=== PATIENT | male | born 1940 | race Caucasian/White ===

== ENCOUNTER 2019-06-03 12:16 | Inpatient (IN) ==
[2019-06-03 12:55] LABS: Basophils # (auto) 0.01 K/uL (0-0.2); Basophils % (auto) 0.2 %; Eosinophils # (auto) 0.03 K/uL (0-0.5); Eosinophils % (auto) 0.5 %; Hematocrit (blood only) 36.5 % (42-52); Hemoglobin 12.5 g/dL (14.0-18.0); Immature Granulocytes # (auto) 0.01 K/uL (0.00-0.02); Immature Granulocytes % (auto) 0.2 %; Lymphocytes # (auto) 0.39 K/uL (1.2-3.4); Lymphocytes % (auto) 6.8 %; Mean Corpuscular Hemoglobin 31.2 pg (25-34); Mean Corpuscular Hgb Conc 34.2 g/dL (32-36); Mean Platelet Volume 10.3 fL (7.4-10.4); Monocytes # (auto) 0.04 K/uL (0.11-0.59); Monocytes % (auto) 0.7 %; Neutrophils # (auto) 5.24 K/uL (1.4-6.5); Neutrophils % (auto) 91.6 %; Platelet Count 266 K/uL (130-400); RDW Coefficient of Variation 15.4 % (11.5-14.5); RDW Standard Deviation 51.9 fL (36.4-46.3); Red Blood Count 4.01 M/uL (4.7-6.1); White Blood Count 5.72 K/uL (4.8-10.8)
[2019-06-03] MEDS ORDERED: SODIUM CHLORIDE 0.9% 1000ML 1,000 ML IV ONE (12:56)
[2019-06-03 13:10] LABS: Alanine Aminotransferase 30 U/L (12-78); Albumin Level 3.5 gm/dl (3.4-5.0); Aspartate Aminotransferase 26 U/L (15-37); BUN Creatinine Ratio 29.8 (10-20); Blood Urea Nitrogen 35 mg/dl (7-18); Calcium 8.9 mg/dl (8.5-10.1); Carbon Dioxide 25 mmol/L (21-32); Chloride 106 mmol/L (98-107); Est GFR (Non-African American) 60.4; Glucose 118 mg/dl (70-99); Sodium 138 mmol/L (136-145)
[2019-06-03 13:21] LABS: Alkaline Phosphatase 106 U/L (45-117); Bilirubin,Total 0.6 mg/dl (0.2-1); Globulin 3.4 gm/dl (2.5-4.0); Thyroid Stimulating Hormone 0.535 uIu/ml (0.300-4.500); Total Protein 6.9 gm/dl (6.4-8.2)
[2019-06-03 14:45] LABS: Appearance Urine Clear (Clear); Bilirubin Urine Negative (Negative); Blood Urine Negative (Negative); Color Urine Yellow; Glucose Urine UA Negative (Negative); Ketones Urine Negative (Negative); Leukocyte Esterase Urine Negative (Negative); Nitrite Urine Negative (Negative); Protein Urine Negative (Negative); Urobilinogen Urine Negative (Negative); pH Urine 6.5 (4.5-7.5)
[2019-06-03] MEDS ORDERED: ZOLPIDEM TARTRATE 5 MG TAB PO PRN (16:19)
[2019-06-03] MEDS ORDERED: ACETAMINOPHEN 325 MG TAB PO PRN (16:19)
--- NOTE | 2019-06-03 16:34 | History & Physical Report ---
Date of Service June 03, 2019 Assessment & Plan (1) Syncope: Multiple episodes of syncope, progressed to syncope from sitting position Likely secondary to hypotension from adrenal insufficiency aggravated by dehydration. I believe patient has mild dehydration because he stopped drinking water after 6 PM every day to ameliorate the nocturia Monitor patient for arrhythmia Discussed CODE STATUS with family, patient is full code (2) Acute hypotension: Likely multifactorial Adrenal insufficiency plus dehydration Status post 1 L in ED No signs of infection Nontoxic-appearing UA is negative for infection, no leukocytosis, no fever Ordered physical therapy/Occupational Therapy Ordered orthostatic pressure Ordered compression stockings (3) Acute dehydration: Status post 1 L of normal saline in ED Continue normal saline at 50 cc/h (4) Adrenal insufficiency: Plan is as above Continue prednisone 5 mg twice daily no need for stress dose Continue fludrocortisone 0.1 mg daily Can consider increasing the dose if needed (5) Nocturia: Likely secondary to hyperactive bladder Failed Trospium as outpatient (6) Peripheral neuropathy: Continue gabapentin (7) Dyslipidemia: Continue simvastatin (8) Essential hypertension: Currently leaving the blood pressure towards the high level, no blood pressure medication given except Proscar for the bladder (9) CAD (coronary artery disease): Continue aspirin History of Present Illness 79-year-old man with past medical history of cancer prostate on Bicalitamide, dyslipidemia, essential hypertension not on any meds due to the adrenal insufficiency, CAD on aspirin adrenal insufficiency used to be on prednisone 20 mg daily, was reduced to 5 mg twice daily after the diagnosis of the prostate cancer, he is also on fludrocortisone daily, presented to the hospital with multiple episodes of syncope about 7 times within the last few days, 2 of his episodes of syncope happened while he is sitting in a chair, home nurse checked his pressure and systolic pressure was in the range of 70s to 80s. Patient also has hyperactive bladder as an initial diagnosis, failed a trial of Trospium. Patient received 1 L of IV fluid in ED. Due to his hyperactive bladder he stopped drinking water after 6 PM and possibly slightly dehydrated Primary Care Provider: Jaime Parham Allergies Allergy/AdvReac Type Severity Reaction Status Date / Time tamsulosin [From Flomax] AdvReac Verified 06/03/19 13:08 Home Medications Home Medications Medication Instructions Recorded Confirmed Type aspirin [Aspir-81] 81 mg PO QAM 04/01/19 06/03/19 History cyanocobalamin (vitamin B-12) 1,000 mcg PO QAM 04/01/19 06/03/19 History [Vitamin B-12] finasteride 5 mg PO QAM 04/01/19 06/03/19 History fludrocortisone 0.1 mg PO QAM 04/01/19 06/03/19 History gabapentin 300 mg PO QAM 04/01/19 06/03/19 History garlic 500 mg PO QAM 04/01/19 06/03/19 History prednisone 20 mg PO QAM 04/01/19 06/03/19 History simvastatin 20 mg PO QPM 04/01/19 06/03/19 History bicalutamide 50 mg tablet 50 mg PO BID #60 tab 04/02/19 06/03/19 Rx ciprofloxacin 500 mg tablet 500 mg PO BID #6 tab 04/02/19 06/03/19 Rx Past Med/Surg History Medical History Benign 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 (Acute) Urinary frequency (Acute) Nocturia (Acute) Osteoarthritis (Acute) Peripheral neuropathy (Acute) Prostate nodule (Acute) Suicide attempt (Acute) Urge incontinence of urine (Acute) Urinary urgency (Acute) CAD (coronary artery disease) DJD of left shoulder Dyslipidemia History of atrial fibrillation Left knee DJD Surgical History History of PTCA History of herniorrhaphy History of intravascular stent placement History of radiofrequency ablation procedure for cardiac arrhythmia History of total knee arthroplasty Status post total shoulder arthroplasty Status post trigger finger release Family History Other Family history non-contributory Social History Preferred Language: Citizen Of The [place] Communication Ability: Effective Windows Security Analyst Required: No Beliefs That Will Affect Care: None Current Living Situation: Spouse Other Information That Helps Us Care for You: No Feels Safe at Home: Yes Safety Concerns: Feels Safe At This Time Smoking Status: Never smoker Hx Alcohol Use: No Hx Substance Use: No Review of Systems Review of Systems: Review of system aside from syncope and falling rest of review of systems negative Constitutional: No fever / no chills / no sweats / no weakness / no fatigue Eyes: no blurring of vision / no eye pain / no discharge / no redness ENT: no hearing loss / no epistaxis /no swallowing problems Respiratory: no cough / no wheezing / no SOB / no hemoptysis Cardiovascular: no Chest pain / no lower extremity edema / no palpitation Abdomen: no pain / no nausea / no vomiting / no constipation Musculoskeletal: no joint pain / no muscle pain / no joint swelling Genitourinary: no dysuria / no incontinence / no urinary retention Neurologic: no focal weakness / no numbness/tingling / no ataxia Psychiatric: no depression symptoms / no anxiety / no insomnia Endocrine: no excessive thirst / no excessive urination Hematologic: no abnormal bleeding / no bruising / no LN swelling Skin: No rash / no pallor Physical Exam Physical Exam: Physical examination General patient appears to be comfortable, not in acute distress HEENT: Atraumatic , normocephalic /no jaundice /no pallor /anicteric /no dry mucous membrane /normal external ear inspection Neck: Supple /no swelling /central trach Heart: S1/S2 normal/regular rate and rhythm/no gallop /no rub /no murmur Lungs: Clear to auscultation bilaterally/normal chest with expansion/no rhonchi/no rales/no wheezing/no use of accessory muscles of respiration Abdomen: Soft/nontender/no guarding/no rebound/no organomegaly/no pulsatile mass Musculoskeletal: No swelling/no edema/no tenderness/normal range of motion Neuro exam: Awake alert oriented 3/cranial nerves II through XII appear to be intact/sensation intact/moves all extremities/no abnormal movements Psychiatric evaluation: No depressed mood/normal affect Skin: No rash on exposed skin area/no erythema Extremity: Normal pulse/no pitting edema/no clubbing or cyanosis Endocrine/lymphatic: No obvious lymphadenopathy /no lymphedema Results & Data Vital Signs (Past 12 Hours) Vital Signs Temp Pulse Pulse Resp BP BP Pulse Ox 06/03/19 14:31 94 H 16 189/121 H 06/03/19 13:32 90 16 172/98 H 06/03/19 12:20 36.7 C 96 H 18 81/57 L 97 Code Status & VTE Plan VTE Prophylaxis Plan VTE Prophylaxis will be ordered: Yes PG Care Time/CCT Total # of Minutes Spent Total Time Spent with Patient: 35 minutes total time spent is greater than 50% in coordination of care (as documented) at patient's floor/unit and/or counseling patient/family discussion of care with nursing staff (1) Syncope Syncope type: unspecified Qualified Code(s): R55 - Syncope and collapse
--- NOTE | 2019-06-03 16:38 | Emergency Department Note ---
Entered by Harry Carrillo acting as a scribe for History of Present Illness General Chief complaint: Syncope (Near Syncope) Stated complaint: PASSING OUT ALL WEEKEND Time Seen by Provider: 06/03/19 12:49 Source: patient, family (son) and friends History of Present Illness Onset (ago): day(s) 2 Location: head Pain Consistency: + other (multiple episodes) Maximum Pain Intensity: 3 Quality: + other (syncope) Associated symptoms: + other (+low blood pressure; +frequent urges to urinate; - dizziness); no chest pain, no cough, no fever/chills and no shortness of breath The patient is a 79 year old male, with past medical history of prostate cancer and CAD, who presents to the Emergency Room with complaints of multiple episodes of syncope over the last two days. A friend of the patient notes the patient had 7 episodes of syncope yesterday. The patient states that the syncope episodes can happen while he is standing up or sitting down, but the patient states the syncope episodes dont necessarily happen specifically upon standing up. The patient notes he had two syncope episodes today, and he states each episode occurred after getting the urge to urinate and right after getting up to go urinate. The patient states that he blacks out briefly during each syncope episode, which causes him to wilt to the floor. The patient states it only takes him a few minutes to feel better after each syncope episode. The patient notes he has hurt his hip once and slightly hit his head once during these syncope episodes. The patient also reports he has been dealing with low blood pressure for awhile. The patient denies being on medication to lower his blood pressure. The patient states he has also been frequently experiencing urges to urinate, but he states he is not urinating as much as he should. The patient denies chest pain, shortness of breath, dizziness, sweating, fever, cough, congestion, and the patient denies being on any blood thinners other than aspirin. The patient also reports he had chemo treatment for prostate cancer 5 days ago. The patient notes he has chemo treatments every 21 days. The son of the patient reports the patient has extremely bad neuropathy in his lower extremities. The son also reports the patient recently had a bone scan completed, but the son states they are still waiting on results. The patient states his PCP is Dr. Parham from [place], his oncologist is Dr. Tobin, and his urologist is Dr. Bryce Garcia. Home Medications Home Medications Medication Instructions Recorded Confirmed Type aspirin [Aspir-81] 81 mg PO QAM 04/01/19 06/03/19 History cyanocobalamin (vitamin B-12) 1,000 mcg PO QAM 04/01/19 06/03/19 History [Vitamin B-12] finasteride 5 mg PO QAM 04/01/19 06/03/19 History fludrocortisone 0.1 mg PO QAM 04/01/19 06/03/19 History gabapentin 300 mg PO QAM 04/01/19 06/03/19 History garlic 500 mg PO QAM 04/01/19 06/03/19 History prednisone 20 mg PO QAM 04/01/19 06/03/19 History simvastatin 20 mg PO QPM 04/01/19 06/03/19 History bicalutamide 50 mg tablet 50 mg PO BID #60 tab 04/02/19 06/03/19 Rx ciprofloxacin HCl 500 mg tablet 500 mg PO BID #6 tab 04/02/19 06/03/19 Rx Allergies Allergy/AdvReac Type Severity Reaction Status Date / Time tamsulosin [From Flomax] AdvReac Verified 06/03/19 13:08 Past Med/Surg History Medical History Benign 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 (Acute) CAD (coronary artery disease) DJD of left shoulder Dyslipidemia History of atrial fibrillation Left knee DJD Nocturia (Acute) Osteoarthritis (Acute) Peripheral neuropathy (Acute) Prostate nodule (Acute) Suicide attempt (Acute) Urge incontinence of urine (Acute) Urinary frequency (Acute) Urinary urgency (Acute) Surgical History History of herniorrhaphy History of intravascular stent placement History of PTCA History of radiofrequency ablation procedure for cardiac arrhythmia History of total knee arthroplasty Status post total shoulder arthroplasty Status post trigger finger release Family History Other Family history non-contributory Social History Preferred Language: Algerian Communication Ability: Effective 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 and A total of 10 systems reviewed and were otherwise negative Physical Exam Vital Signs Vital Signs - 24 hr 06/03/19 12:20 06/03/19 12:31 06/03/19 13:32 Temperature 36.7 C Temperature Source Oral Sepsis Recent Fever Within 48 Hours No Sepsis New/Unexplained Change in Mental Status No Sepsis Action Taken by Nursing No Action Required Pulse Rate 96 H Pulse Rate [Apical] 90 Pulse Rate from SpO2 Sensor Respiratory Rate 18 16 Respiratory Effort / Characteristics Non-Labored Respiratory Depth Normal Blood Pressure 81/57 L Blood Pressure [Left Arm] 172/98 H Blood Pressure Mean 65 Blood Pressure Mean [Left Arm] 122 Blood Pressure Position Sitting Pulse Oximetry 97 Oxygen Delivery Method Room Air Room Air 06/03/19 14:31 06/03/19 16:00 Temperature Temperature Source Sepsis Recent Fever Within 48 Hours Sepsis New/Unexplained Change in Mental Status Sepsis Action Taken by Nursing Pulse Rate 93 H Pulse Rate [Apical] 94 H Pulse Rate from SpO2 Sensor 93 H Respiratory Rate 16 20 Respiratory Effort / Characteristics Respiratory Depth Blood Pressure 174/110 H Blood Pressure [Left Arm] 189/121 H Blood Pressure Mean 131 Blood Pressure Mean [Left Arm] 143 Blood Pressure Position Pulse Oximetry 98 Oxygen Delivery Method GENERAL: Patient is in no acute distress. HEENT: No acute trauma, normocephalic atraumatic, mucous membranes moist, no nasal congestion, no scleral icterus. NECK: No stridor, no adenopathy, no meningismus, trachea is midline. LUNGS: Clear to auscultation bilaterally, no wheeze, no rhonchi, breath sounds equal. HEART: Without murmurs gallops or rubs, regular rate and rhythm. ABDOMEN: Soft, nontender, bowel sounds positive, no hernias, no peritonitis. EXTREMITIES: No cyanosis or edema, full range of motion of all the joints without pain or difficulty, no signs for acute trauma. NEUROLOGIC: Oriented x 3, no acute motor or sensory deficits, no focal weakness. SKIN: No rash, no jaundice, no diaphoresis. Course 1251: Past medical records reviewed. The patient was evaluated in room B11B. A complete history and physical exam was performed. 1400: I [facility] the [facility]. Dr. Ceballos will evaluate the patient for further management. 1405: I updated the patient on his case. Consultations Consultation #1: I reviewed the patient's [facility]. Dr. Ceballos will evaluate the patient for further management. Time: 14:00 Administered Medications Aspirin (Ecotrin Ectab) 81 mg PO QAM [facility] Stop: 07/04/19 08:59 Last Admin: 06/08/19 08:34 Dose: 81 mg Documented by: [id number] Admin: 06/07/19 07:59 Dose: 81 mg Documented by: [id number] Admin: 06/06/19 07:53 Dose: 81 mg Documented by: [id number] Admin: 06/05/19 08:15 Dose: 81 mg Documented by: [id number] Admin: 06/04/19 08:13 Dose: 81 mg Documented by: [id number] Benzonatate (Tessalon Perle) 100 mg PO TID PRN PRN Reason: Cough Stop: 07/05/19 14:00 Last Admin: 06/08/19 08:32 Dose: 100 mg Documented by: [id number] Admin: 06/07/19 21:03 Dose: 100 mg Documented by: [id number] Admin: 06/07/19 10:56 Dose: 100 mg Documented by: [id number] Admin: 06/06/19 20:51 Dose: 100 mg Documented by: [id number] Admin: 06/06/19 12:50 Dose: 100 mg Documented by: [id number] Admin: 06/06/19 05:13 Dose: 100 mg Documented by: [id number] Admin: 06/05/19 16:26 Dose: 100 mg Documented by: [id number] Bicalutamide (Casodex) 50 mg PO BID [facility] Stop: 07/03/19 20:59 Last Admin: 06/08/19 08:36 Dose: 50 mg Documented by: [id number] Cosigned by: [id number] Admin: 06/07/19 20:42 Dose: 50 mg Documented by: [id number] Cosigned by: [id number] Admin: 06/07/19 08:00 Dose: 50 mg Documented by: [id number] Cosigned by: [id number] Admin: 06/06/19 20:52 Dose: 50 mg Documented by: [id number] Cosigned by: [id number] Admin: 06/06/19 07:53 Dose: 50 mg Documented by: [id number] Cosigned by: [id number] Admin: 06/05/19 21:02 Dose: 50 mg Documented by: [id number] Cosigned by: [id number] Admin: 06/05/19 08:16 Dose: 50 mg Documented by: [id number] Cosigned by: [id number] Admin: 06/04/19 20:35 Dose: 50 mg Documented by: [id number] Cosigned by: [id number] Admin: 06/04/19 09:13 Dose: 50 mg Documented by: [id number] Cosigned by: [id number] Admin: 06/03/19 20:48 Dose: 50 mg Documented by: [id number] Cosigned by: [id number] Cyanocobalamin (Vitamin B-12) 1,000 mcg PO QAM [facility] Stop: 07/04/19 08:59 Last Admin: 06/08/19 08:33 Dose: 1,000 mcg Documented by: [id number] Admin: 06/07/19 08:00 Dose: 1,000 mcg Documented by: [id number] Admin: 06/06/19 07:55 Dose: 1,000 mcg Documented by: [id number] Admin: 06/05/19 08:14 Dose: 1,000 mcg Documented by: [id number] Admin: 06/04/19 08:14 Dose: 1,000 mcg Documented by: [id number] Finasteride (Proscar) 5 mg PO QAM [facility] Stop: 07/04/19 08:59 Last Admin: 06/08/19 08:33 Dose: 5 mg Documented by: [id number] Admin: 06/07/19 07:59 Dose: 5 mg Documented by: [id number] Admin: 06/06/19 07:55 Dose: 5 mg Documented by: [id number] Admin: 06/05/19 08:15 Dose: 5 mg Documented by: [id number] Admin: 06/04/19 08:13 Dose: 5 mg Documented by: [id number] Fludrocortisone Acetate (Florinef) 0.2 mg PO QAM [facility] Stop: 07/06/19 08:59 Last Admin: 06/08/19 08:34 Dose: 0.2 mg Documented by: [id number] Admin: 06/07/19 07:59 Dose: 0.2 mg Documented by: [id number] Admin: 06/06/19 07:53 Dose: 0.2 mg Documented by: [id number] Gabapentin (Neurontin) 300 mg PO QAM [facility] Stop: 07/04/19 08:59 Last Admin: 06/08/19 08:33 Dose: 300 mg Documented by: [id number] Admin: 06/07/19 08:00 Dose: 300 mg Documented by: [id number] Admin: 06/06/19 07:54 Dose: 300 mg Documented by: [id number] Admin: 06/05/19 08:14 Dose: 300 mg Documented by: [id number] Admin: 06/04/19 08:13 Dose: 300 mg Documented by: [id number] Guaifenesin (Mucinex) 600 mg PO Q12 [facility] Stop: 07/05/19 20:59 Last Admin: 06/08/19 08:33 Dose: 600 mg Documented by: [id number] Admin: 06/07/19 20:43 Dose: 600 mg Documented by: [id number] Admin: 06/07/19 08:00 Dose: 600 mg Documented by: [id number] Admin: 06/06/19 20:52 Dose: 600 mg Documented by: [id number] Admin: 06/06/19 07:54 Dose: 600 mg Documented by: [id number] Admin: 06/05/19 21:01 Dose: 600 mg Documented by: [id number] Heparin Sodium (Porcine) (Heparin Sodium (Porcine)) 5,000 units SQ Q12 [facility] Stop: 07/03/19 20:59 Last Admin: 06/08/19 08:32 Dose: 5,000 units Documented by: [id number] Cosigned by: [id number] Admin: 06/07/19 20:41 Dose: 5,000 units Documented by: [id number] Cosigned by: [id number] Admin: 06/07/19 08:01 Dose: Not Given Documented by: [id number] Admin: 06/06/19 20:53 Dose: 5,000 units Documented by: [id number] Cosigned by: [id number] Admin: 06/06/19 07:54 Dose: 5,000 units Documented by: [id number] Cosigned by: [id number] Admin: 06/05/19 21:02 Dose: 5,000 units Documented by: [id number] Cosigned by: [id number] Admin: 06/05/19 08:15 Dose: 5,000 units Documented by: [id number] Cosigned by: [id number] Admin: 06/04/19 20:33 Dose: 5,000 units Documented by: [id number] Cosigned by: [id number] Admin: 06/04/19 08:15 Dose: 5,000 units Documented by: [id number] Cosigned by: [id number] Admin: 06/03/19 20:45 Dose: 5,000 units Documented by: [id number] Cosigned by: [id number] Midodrine (Proamatine) 5 mg PO TID@0800,1200,1700 [facility] Stop: 07/03/19 18:29 Last Admin: 06/08/19 08:35 Dose: 5 mg Documented by: [id number] Admin: 06/07/19 17:01 Dose: 5 mg Documented by: [id number] Admin: 06/07/19 12:00 Dose: 5 mg Documented by: [id number] Admin: 06/07/19 07:59 Dose: 5 mg Documented by: [id number] Admin: 06/06/19 17:34 Dose: 5 mg Documented by: [id number] Admin: 06/06/19 12:50 Dose: 5 mg Documented by: [id number] Admin: 06/06/19 07:52 Dose: 5 mg Documented by: [id number] Admin: 06/05/19 16:26 Dose: 5 mg Documented by: [id number] Admin: 06/05/19 12:03 Dose: 5 mg Documented by: [id number] Admin: 06/05/19 08:15 Dose: 5 mg Documented by: [id number] Admin: 06/04/19 17:01 Dose: 5 mg Documented by: [id number] Admin: 06/04/19 12:24 Dose: 5 mg Documented by: [id number] Admin: 06/04/19 08:13 Dose: 5 mg Documented by: [id number] Admin: 06/03/19 18:18 Dose: 5 mg Documented by: [id number] Polyethylene Glycol (Miralax Powder Packet) 17 gm PO DAILY [facility] Stop: 07/05/19 12:29 Last Admin: 06/08/19 08:33 Dose: 17 gm Documented by: [id number] Admin: 06/07/19 08:01 Dose: 17 gm Documented by: [id number] Admin: 06/06/19 07:54 Dose: 17 gm Documented by: [id number] Admin: 06/05/19 13:49 Dose: 17 gm Documented by: [id number] Prednisone (Prednisone) 5 mg PO BID [facility] Stop: 07/03/19 20:59 Last Admin: 06/08/19 08:33 Dose: 5 mg Documented by: [id number] Admin: 06/07/19 20:41 Dose: 5 mg Documented by: [id number] Admin: 06/07/19 08:00 Dose: 5 mg Documented by: [id number] Admin: 06/06/19 20:52 Dose: 5 mg Documented by: [id number] Admin: 06/06/19 07:54 Dose: 5 mg Documented by: [id number] Admin: 06/05/19 21:02 Dose: 5 mg Documented by: [id number] Admin: 06/05/19 08:14 Dose: 5 mg Documented by: [id number] Admin: 06/04/19 20:32 Dose: 5 mg Documented by: [id number] Admin: 06/04/19 08:12 Dose: 5 mg Documented by: [id number] Admin: 06/03/19 20:44 Dose: 5 mg Documented by: [id number] Simvastatin (Zocor) 20 mg PO QPM [facility] Stop: 07/03/19 20:59 Last Admin: 06/07/19 20:40 Dose: 20 mg Documented by: [id number] Admin: 06/06/19 20:52 Dose: 20 mg Documented by: [id number] Admin: 06/05/19 21:02 Dose: 20 mg Documented by: [id number] Admin: 06/04/19 20:30 Dose: 20 mg Documented by: [id number] Admin: 06/03/19 20:44 Dose: 20 mg Documented by: [id number] Discontinued Medications Fludrocortisone Acetate (Florinef) 0.1 mg PO QAM [facility] Stop: 07/03/19 17:59 Last Admin: 06/05/19 08:15 Dose: 0.1 mg Documented by: [id number] Admin: 06/04/19 08:13 Dose: 0.1 mg Documented by: [id number] Admin: 06/03/19 18:18 Dose: 0.1 mg Documented by: [id number] Fludrocortisone Acetate (Florinef) 0.1 mg PO NOW STA Stop: 06/05/19 09:54 Last Admin: 06/05/19 10:22 Dose: 0.1 mg Documented by: [id number] Sodium Chloride (Nss 1000ml) 1,000 mls @ 999 mls/hr IV .Q1H1M ONE Stop: 06/03/19 13:56 Last Infusion: 06/03/19 14:28 Dose: 0 mls/hr Documented by: [id number] Admin: 06/03/19 13:32 Dose: 999 mls/hr Documented by: [id number] Sodium Chloride (Nss 1000ml) 1,000 mls @ 50 mls/hr IV .Q20H [facility] Stop: 07/03/19 17:59 Last Infusion: 06/05/19 10:22 Dose: 0 mls/hr Documented by: [id number] Admin: 06/05/19 09:14 Dose: 50 mls/hr Documented by: [id number] Infusion: 06/05/19 08:25 Dose: 50 mls/hr Documented by: [id number] Admin: 06/04/19 12:25 Dose: 50 mls/hr Documented by: [id number] Infusion: 06/04/19 12:25 Dose: 50 mls/hr Documented by: [id number] Admin: 06/03/19 17:56 Dose: 50 mls/hr Documented by: [id number] Lidocaine HCl (Xylocaine 2% Jelly) Confirm Administered Dose 5 ml .ROUTE .STK- MED ONE Stop: 06/04/19 09:47 Last Admin: 06/04/19 10:08 Dose: 5 ml Documented by: [id number] Tolterodine Tartrate (Detrol) 2 mg PO BID [facility] Stop: 07/03/19 20:59 Last Admin: 06/04/19 08:13 Dose: 2 mg Documented by: [id number] Admin: 06/03/19 20:43 Dose: 2 mg Documented by: [id number] Impression & Plan Syncope, Acute hypotension, Acute dehydration Discharge Plan Visit Data *Final* Discharge Date/Time: 06/03/19 17:12 Chief Complaint: Syncope (Near Syncope) Stated Complaint: PASSING OUT ALL WEEKEND ED Provider: Conner Olivares Discharge Problem: Syncope, Acute hypotension, Acute dehydration Patient Disposition: Admitted As Inpatient Discharge Instructions Interventions: ED Discharge Assessment Last Done: 06/03/19 17:12 Medical Decision Making Differential Diagnosis Differential diagnoses include dehydration, anemia, renal failure, electrolyte imbalance, UTI, medication reaction, dysrhythmia, myocardial infarction, amongst others were considered. Medical Records Attestation: I reviewed the patient's medical records. Home Medications Current Medication List: was personally reviewed by me Laboratory Data Attestation: I reviewed the patient's lab results. Result diagrams: 06/08/19 08:11 06/07/19 07:56 Lab Results 06/03/19 06/03/19 06/03/19 Range/Units 12:42 12:42 12:42 WBC 5.72 (4.8-10.8) K/uL RBC 4.01 L (4.7-6.1) M/uL Hgb 12.5 L (14.0-18.0) g/dL Hct 36.5 L (42-52) % MCV 91.0 (80-100) fL MCH 31.2 (25-34) pg MCHC 34.2 (32-36) g/dL RDW Std Deviation 51.9 H (36.4-46.3) fL RDW Coeff of Emilee 15.4 H (11.5-14.5) % Plt Count 266 (130-400) K/uL MPV 10.3 (7.4-10.4) fL Immature Gran % (Auto) 0.2 % Neut % (Auto) 91.6 % Lymph % (Auto) 6.8 % [place] % (Auto) 0.7 % Eos % (Auto) 0.5 % Baso % (Auto) 0.2 % Immature Gran # (Auto) 0.01 (0.00-0.02) K/uL Neut # (Auto) 5.24 (1.4-6.5) K/uL Lymph # (Auto) 0.39 L (1.2-3.4) K/uL [place] # (Auto) 0.04 L (0.11-0.59) K/uL Eos # (Auto) 0.03 (0-0.5) K/uL Baso # (Auto) 0.01 (0-0.2) K/uL Sodium 138 (136-145) mmol/L Potassium 4.0 (3.5-5.1) mmol/L Chloride 106 (98-107) mmol/L Carbon Dioxide 25 (21-32) mmol/L Anion Gap 7.0 (3-11) BUN 35 H (7-18) mg/dl Creatinine 1.16 (0.6-1.4) mg/dl Est Cr Clr Drug Dosing Not Reportable Est GFR ( Amer) 70.0 Est GFR (Non-Af Amer) 60.4 BUN/Creatinine Ratio 29.8 H (10-20) Glucose 118 H (70-99) mg/dl Calcium 8.9 (8.5-10.1) mg/dl Magnesium 2.0 (1.8-2.4) mg/dl Total Bilirubin 0.6 (0.2-1) mg/dl AST 26 (15-37) U/L ALT 30 (12-78) U/L Alkaline Phosphatase 106 (45-117) U/L Troponin I < 0.015 (0-0.045) ng/ml Total Protein 6.9 (6.4-8.2) gm/dl Albumin 3.5 (3.4-5.0) gm/dl Globulin 3.4 (2.5-4.0) gm/dl Albumin/Globulin Ratio 1.0 (0.9-2) TSH 0.535 (0.300-4.500) uIu/ml Urine Color Urine Appearance (Clear) Urine pH (4.5-7.5) Ur Specific [place] (1.000-1.030) Urine Protein (Negative) Urine Glucose (UA) (Negative) Urine Ketones (Negative) Urine Blood (Negative) Urine Nitrite (Negative) Urine Bilirubin (Negative) Urine Urobilinogen (Negative) Ur Leukocyte Esterase (Negative) 06/03/19 Range/Units 14:24 WBC (4.8-10.8) K/uL RBC (4.7-6.1) M/uL Hgb (14.0-18.0) g/dL Hct (42-52) % MCV (80-100) fL MCH (25-34) pg MCHC (32-36) g/dL RDW Std Deviation (36.4-46.3) fL RDW Coeff of Emilee (11.5-14.5) % Plt Count (130-400) K/uL MPV (7.4-10.4) fL Immature Gran % (Auto) % Neut % (Auto) % Lymph % (Auto) % [place] % (Auto) % Eos % (Auto) % Baso % (Auto) % Immature Gran # (Auto) (0.00-0.02) K/uL Neut # (Auto) (1.4-6.5) K/uL Lymph # (Auto) (1.2-3.4) K/uL [place] # (Auto) (0.11-0.59) K/uL Eos # (Auto) (0-0.5) K/uL Baso # (Auto) (0-0.2) K/uL Sodium (136-145) mmol/L Potassium (3.5-5.1) mmol/L Chloride (98-107) mmol/L Carbon Dioxide (21-32) mmol/L Anion Gap (3-11) BUN (7-18) mg/dl Creatinine (0.6-1.4) mg/dl Est Cr Clr Drug Dosing Est GFR ( Amer) Est GFR (Non-Af Amer) BUN/Creatinine Ratio (10-20) Glucose (70-99) mg/dl Calcium (8.5-10.1) mg/dl Magnesium (1.8-2.4) mg/dl Total Bilirubin (0.2-1) mg/dl AST (15-37) U/L ALT (12-78) U/L Alkaline Phosphatase (45-117) U/L Troponin I (0-0.045) ng/ml Total Protein (6.4-8.2) gm/dl Albumin (3.4-5.0) gm/dl Globulin (2.5-4.0) gm/dl Albumin/Globulin Ratio (0.9-2) TSH (0.300-4.500) uIu/ml Urine Color Yellow Urine Appearance Clear (Clear) Urine pH 6.5 (4.5-7.5) Ur Specific [place] 1.020 (1.000-1.030) Urine Protein Negative (Negative) Urine Glucose (UA) Negative (Negative) Urine Ketones Negative (Negative) Urine Blood Negative (Negative) Urine Nitrite Negative (Negative) Urine Bilirubin Negative (Negative) Urine Urobilinogen Negative (Negative) Ur Leukocyte Esterase Negative (Negative) ECG Data Attestation: I personally reviewed and interpreted this ECG as follows: Indication: + syncope Rate (beats per minute): 95 Rhythm: + sinus rhythm ECG ST segments: no ST elevation ECG Findings: + PVCs and + Other (QTC 464) Blood Pressure Blood Pressure Findings: Low blood pressure Blood Pressure Disposition: further management by hospitalist RICHARD Narrative There is no leukocytosis. The patient is mildly anemic however, this is baseline for him. No issues with his platelet count. No significant electrolyte abnormality or kidney failure. No evidence for liver enzyme elevation. The patient appeared to be in a euthyroid state. Urinalysis does not show infection or hematuria. EKG shows a sinus rhythm, no acute ischemia. Cardiac enzyme testing x1 is not consistent with acute cardiac injury. Blood pressure was low in the 80s systolic. The patient presents with syncope. He has had at least 7 syncopal spells in the last 24 hours. He is on some medications which may be dropping his blood pressure. He does seem slightly dehydrated clinically. He does have prostate cancer and is on chemotherapy for this cancer. Patient was given IV saline, 1 L. He did well with his fluid bolus and his blood pressure improved. The patient has had at least 7 syncopal spells in the last 24 hours. He presents hypotensive although this has rebounded since receiving IV fluids. I do think a hospital stay for monitoring and further care is indicated. I spoke to the patient and case fitter. The on-call hospitalist was consulted. In short, I suspect the hypotension is multifactorial, I suspect this has caused the syncope. Discharge Problem: Syncope Qualifiers: Syncope type: unspecified Qualified Code(s): R55 - Syncope and collapse The scribe's documentation has been prepared under my direction and personally reviewed by me in its entirety. I confirm that the note above accurately reflects all work, treatment, procedures, and medical decision making performed by me.
[2019-06-03] MEDS: SODIUM CHLORIDE 0.9% 1000ML 1,000 ML IV SCH (17:56)
[2019-06-03] MEDS: MIDODRINE HCL 2.5 MG TAB PO SCH (18:18)
[2019-06-03] MEDS: FLUDROCORTISONE ACETATE 0.1 MG TAB PO SCH (18:18)
[2019-06-03] MEDS: TOLTERODINE TARTRATE 2 MG TAB PO SCH (20:43)
[2019-06-03] MEDS: SIMVASTATIN 20 MG TAB PO SCH (20:44)
[2019-06-03] MEDS: predniSONE 5 MG TAB PO SCH (20:44)
[2019-06-03] MEDS: HEPARIN SOD 5,000 UNIT/0.5 ML VIAL SQ SCH (20:45)
[2019-06-03] MEDS: BICALUTAMIDE 50 MG TAB PO SCH (20:48)
[2019-06-04] MEDS: predniSONE 5 MG TAB PO SCH ×2 (08:12→20:32)
[2019-06-04] MEDS: MIDODRINE HCL 2.5 MG TAB PO SCH ×3 (08:13→17:01)
[2019-06-04] MEDS: GABAPENTIN 300 MG CAP PO SCH (08:13)
[2019-06-04] MEDS: FINASTERIDE 5 MG TAB PO SCH (08:13)
[2019-06-04] MEDS: ASPIRIN 81 MG ECTAB PO SCH (08:13)
[2019-06-04] MEDS: FLUDROCORTISONE ACETATE 0.1 MG TAB PO SCH (08:13)
[2019-06-04] MEDS: TOLTERODINE TARTRATE 2 MG TAB PO SCH (08:13)
[2019-06-04] MEDS: CYANOCOBALAMIN 500 MCG TABLET (VITAMIN B-12) PO SCH (08:14)
[2019-06-04] MEDS: HEPARIN SOD 5,000 UNIT/0.5 ML VIAL SQ SCH ×2 (08:15→20:33)
[2019-06-04] MEDS: BICALUTAMIDE 50 MG TAB PO SCH ×2 (09:13→20:35)
[2019-06-04] MEDS ORDERED: LIDOCAINE 2% JELLY 5 ML TUBE ONE (09:46)
[2019-06-04] MEDS: SODIUM CHLORIDE 0.9% 1000ML 1,000 ML IV SCH (12:25)
--- NOTE | 2019-06-04 12:39 | Urology Consultation ---
Date of Consultation June 04, 2019 Assessment & Plan (1) Benign 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: (2) Cancer of prostate, recur risk not determined whether low, med or high: 79yo M with newly diagnosed aggressive prostate cancer, currently on chemoRx and ADT and adrenal insufficiency, admitted with syncopal episodes and UR Continue hanna catheter for 10-14 days to allow max drainage and bladder rest. Continue finasteride. Will hold tolterodine as this could contribute to bladder flaccidity. Send UC&S to r/o low grade infection. Low suspicion given negative UA. Will discuss case with Dr. Garcia to make him aware of events. We will continue to follow while inpatient. History of Present Illness Reason for Consultation: UR Requesting Physician: Dr. Cornejo Attending Physician: Vaughn Cornejo, DO History of Present Illness 79yo M with [place] 5+5 CaP, hx of adrenal insufficiency, admitted to [facility] through ER by our office recommendation after repeated syncopal episodes, hypotension, urinary frequency. Pt currently being treated for adrenal insufficiency, hypotension. Established with Dr. Garcia for care of advanced prostate cancer diagnosed in March 2019, on combination ADT and chemoRx with Dr. Lynch. Pt has received 3 treatments, 4th round planned for end may. Pt states he is tolerating well, except neuropathy. Bud 5+5, No clear mets, + pelvic lymphadenopathy. Current PSA after starting bicalutamide is 6.8, (Mar 2019), down from 39 (Mar 2019) earlier in the month. Next Lupron due late Jun 2019. We were consulted to assist in catheter management. Pt appears comfortable today. States hanna is bothersome but denies bladder spasms or acute pain associated. Mostly annoyed that it is present. Pt was straight cath'd for 800cc upon admission, with subsequent hanna placement this AM. Hanna draining clear yellow. UA negative, not suspicous for UTI. Pt currently on tolterodine and finasteride. Allergies Allergy/AdvReac Type Severity Reaction Status Date / Time tamsulosin [From Flomax] AdvReac Verified 06/03/19 13:08 Home Medications Home Medications Medication Instructions Recorded Confirmed Type aspirin [Aspir-81] 81 mg PO QAM 04/01/19 06/03/19 History cyanocobalamin (vitamin B-12) 1,000 mcg PO QAM 04/01/19 06/03/19 History [Vitamin B-12] finasteride 5 mg PO QAM 04/01/19 06/03/19 History fludrocortisone 0.1 mg PO QAM 04/01/19 06/03/19 History gabapentin 300 mg PO QAM 04/01/19 06/03/19 History garlic 500 mg PO QAM 04/01/19 06/03/19 History prednisone 20 mg PO QAM 04/01/19 06/03/19 History simvastatin 20 mg PO QPM 04/01/19 06/03/19 History bicalutamide 50 mg tablet 50 mg PO BID #60 tab 04/02/19 06/03/19 Rx ciprofloxacin HCl 500 mg tablet 500 mg PO BID #6 tab 04/02/19 06/03/19 Rx Patient History Medical History Benign 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 (Acute) CAD (coronary artery disease) DJD of left shoulder Dyslipidemia History of atrial fibrillation Left knee DJD Nocturia (Acute) Osteoarthritis (Acute) Peripheral neuropathy (Acute) Prostate nodule (Acute) Suicide attempt (Acute) Urge incontinence of urine (Acute) Urinary frequency (Acute) Urinary urgency (Acute) Surgical History History of herniorrhaphy History of intravascular stent placement History of PTCA History of radiofrequency ablation procedure for cardiac arrhythmia History of total knee arthroplasty Status post total shoulder arthroplasty Status post trigger finger release Family History Other Family history non-contributory Social History Preferred Language: Setswana Communication Ability: Effective [employer] Adviser Required: No Beliefs That Will Affect Care: None Current Living Situation: Spouse Feels Safe at Home: Yes Smoking Status: Never smoker Hx Alcohol Use: No Hx Substance Use: No Review of Systems Review of Systems: All systems reviewed & are unremarkable except as noted in HPI & below Physical Exam Constitutional: + ill appearing and + frail appearing; no acute distress Eyes: no nystagmus ENMT: Ears: no hearing impairment Neck: trachea midline Respiratory: no respiratory distress and no cough Cardiovascular: Vessels: no JVD Chest (Breasts): Chest: normal inspection of chest Gastrointestinal (Abdomen): Inspection/Auscultation: abdomen not distended and no abdominal edema Percussion/Palpation: abdomen soft; abdomen nontender Musculoskeletal: Head/Neck/Chest: normocephalic and head atraumatic Skin: no rashes, warm and dry Neurologic: awake; not confused and not obtunded Psychiatric: Orientation: alert and oriented x 3 Eye Contact: good eye contact Affect: no depressed affect Genitourinary: no CVA tenderness hanna draining clear yellow Lymphatic: no lymphadenopathy and no lymphedema Results & Data Vital Signs (Past 12 Hours) Vital Signs Temp Pulse Resp BP BP Pulse Ox 06/04/19 12:23 96/64 L 06/04/19 11:12 36.8 C 93 H 22 159/103 H 97 06/04/19 08:11 36.4 C L 20 98 06/04/19 04:50 36.8 C 96 H 19 156/98 H 96 PG Care Time/CCT Total # of Minutes Spent Total Time Spent with Patient: Total time spent is greater than 50% in coordination of care (as documented) at patient's floor/unit and/or counseling patient:
--- NOTE | 2019-06-04 16:51 | Hospitalist Progress Note ---
Date of Service June 04, 2019 Assessment & Plan (1) Syncope: Multiple episodes of syncope, progressed to syncope from sitting position Likely secondary to hypotension from adrenal insufficiency aggravated by dehydration. could also be a degree of micturation syncope given his constant urge to void and urinary retention no further episodes, continue to observe on monitor PT/OT ordered, check orthostatic vitals (2) Acute hypotension: Likely multifactorial Adrenal insufficiency plus dehydration Status post 1 L in ED stable today, most pressures elevated (3) Acute dehydration: Status post 1 L of normal saline in ED Continue normal saline at 50 cc/h likely stop fluids tomorrow (4) Adrenal insufficiency: Plan is as above Continue prednisone 5 mg twice daily no need for stress dose Continue fludrocortisone 0.1 mg daily (5) Benign 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: hanna placed on 06/04 due to urinary retention, post void residual > 390 urology consulted, appreciate recommendations will go home with hanna to allow bladder to rest continue finasteride hold tolterodine as it could be contributing to bladder flaccidity follows with Dr. Bryce Garcia in office (6) Cancer of prostate, recur risk not determined whether low, med or high: currently on Lupron and Bicalutamide no plans for radiation or surgery as disease is in the lymph nodes most recent PSA was trending down, showing appropriate response (7) Nocturia: Likely secondary to hyperactive bladder Failed Trospium as outpatient reports having to urinate every 10-15 minutes at night (8) Peripheral neuropathy: Continue gabapentin (9) Dyslipidemia: Continue simvastatin (10) Essential hypertension: Currently leaving the blood pressure towards the high level, no blood pressure medication given except Proscar for the bladder (11) CAD (coronary artery disease): Continue aspirin (12) Urinary frequency: Subjective patient c/o multiple episodes of urinary retention already required straight catheterization x 3 this AM with post void residual of 390cc, ordered hanna catheter reviewed outpatient records from Dr. Garcia, he has prostate CA, [place] 5 + 5 PET scan showed some inguinal adenopathy but no distant mets being treated with Lupron and androgen receptor binder will consult Urology no further syncopal episodes, feels a little better today Review of Systems Review of Systems: All systems reviewed & are unremarkable except as noted in HPI & below Constitutional: no fever Respiratory: no cough and no dyspnea Cardiovascular: no chest pain, no palpitations, no syncope and no edema Genitourinary: + difficulty urinating, + urinary frequency, + post-void dribbling and + nocturia (every 10-15 minutes at night); no dysuria, no urinary incontinence and no flank pain Physical Exam Constitutional: WD/WN, vitals as above Eyes: PERRL, conjunctivae normal, anicteric sclerae ENMT: external ear and nose normal, oropharynx normal Neck: trachea midline, no thyromegaly Respiratory: normal respiratory effort, lungs clear to auscultation Cardiovascular: RRR, no murmur, no edema Gastrointestinal (Abdomen): normal bowel sounds, soft, nontender, no hepatosplenomegaly Musculoskeletal: no cyanosis or clubbing, extremities motor strength 5/5 Skin: no rashes, warm and dry Neurologic: patellar DTR's 2+ bilat, sensation intact and PERRL, EOMI, accommodation nl, no face palsy, no dysarthria Psychiatric: A+Ox3, euthymic affect Lymphatic: no cervical or axillary lymphadenopathy Results & Data Vital Signs (Past 12 Hours) Vital Signs Temp Pulse Pulse Resp BP BP Pulse Ox 06/04/19 15:48 88 06/04/19 15:28 36.6 C 88 16 98 06/04/19 12:23 96/64 L 06/04/19 11:12 36.8 C 93 H 22 159/103 H 97 06/04/19 08:11 36.4 C L 20 98 Medications Administered Current Inpatient Medications Acetaminophen (Tylenol) 650 mg PO Q4H PRN PRN Reason: Pain or Fever Stop: 07/03/19 16:18 Aspirin (Ecotrin Ectab) 81 mg PO [facility] Stop: 07/04/19 08:59 Last Admin: 06/04/19 08:13 Dose: 81 mg Documented by: Bicalutamide (Casodex) 50 mg PO BID [facility] Stop: 07/03/19 20:59 Last Admin: 06/04/19 09:13 Dose: 50 mg Documented by: Cyanocobalamin (Vitamin B-12) [facility] [place] Stop: 07/04/19 08:59 Last Admin: 06/04/19 08:14 Dose: 1,000 mcg Documented by: Finasteride (Proscar) 5 mg PO [facility] Stop: 07/04/19 08:59 Last Admin: 06/04/19 08:13 Dose: 5 mg Documented by: Fludrocortisone Acetate (Florinef) 0.1 mg PO QAM [facility] Stop: 07/03/19 17:59 Last Admin: 06/04/19 08:13 Dose: 0.1 mg Documented by: Gabapentin (Neurontin) 300 mg PO QAM [facility] Stop: 07/04/19 08:59 Last Admin: 06/04/19 08:13 Dose: 300 mg Documented by: Heparin Sodium (Porcine) (Heparin Sodium (Porcine)) 5,000 units SQ Q12 [facility] Stop: 07/03/19 20:59 Last Admin: 06/04/19 08:15 Dose: 5,000 units Documented by: Sodium Chloride (Nss 1000ml) 1,000 mls @ 50 mls/hr IV .Q20H [facility] Stop: 07/03/19 17:59 Last Admin: 06/04/19 12:25 Dose: 50 mls/hr Documented by: Midodrine (Proamatine) 5 mg PO TID@0800,1200,1700 [facility] Stop: 07/03/19 18:29 Last Admin: 06/04/19 12:24 Dose: 5 mg Documented by: Prednisone (Prednisone) 5 mg PO BID [facility] Stop: 07/03/19 20:59 Last Admin: 06/04/19 08:12 Dose: 5 mg Documented by: Simvastatin (Zocor) 20 mg PO QPM [facility] Stop: 07/03/19 20:59 Last Admin: 06/03/19 20:44 Dose: 20 mg Documented by: Zolpidem Tartrate (Ambien) 5 mg PO HS PRN PRN Reason: Sleep Stop: 07/03/19 16:18 PG Care Time/CCT Total # of Minutes Spent Total Time Spent with Patient: Total time spent is greater than 50% in coordination of care (as documented) at patient's floor/unit and/or counseling patient: (1) Syncope Syncope type: unspecified Qualified Code(s): R55 - Syncope and collapse
[2019-06-04] MEDS: SIMVASTATIN 20 MG TAB PO SCH (20:30)
[2019-06-05 06:07] LABS: Hematocrit (blood only) 35.7 % (42-52); Hemoglobin 12.1 g/dL (14.0-18.0); Mean Corpuscular Hemoglobin 30.4 pg (25-34); Mean Corpuscular Hgb Conc 33.9 g/dL (32-36); Mean Corpuscular Volume 89.7 fL (80-100); Mean Platelet Volume 10.3 fL (7.4-10.4); Platelet Count 211 K/uL (130-400); RDW Standard Deviation 49.6 fL (36.4-46.3); Red Blood Count 3.98 M/uL (4.7-6.1); White Blood Count 2.11 K/uL (4.8-10.8)
[2019-06-05 06:31] LABS: Est GFR (African American) 97.4; Potassium 3.7 mmol/L (3.5-5.1)
[2019-06-05 06:32] LABS: Albumin Globulin Ratio 0.9 (0.9-2); Albumin Level 2.8 gm/dl (3.4-5.0); BUN Creatinine Ratio 23.7 (10-20); Bilirubin,Total 0.5 mg/dl (0.2-1); Calcium 8.1 mg/dl (8.5-10.1); Creatinine Clr Calc Pharmacy 80.6 ml/min; Globulin 3.3 gm/dl (2.5-4.0); Magnesium 1.8 mg/dl (1.8-2.4); Total Protein 6.1 gm/dl (6.4-8.2)
[2019-06-05] MEDS: GABAPENTIN 300 MG CAP PO SCH (08:14)
[2019-06-05] MEDS: predniSONE 5 MG TAB PO SCH ×2 (08:14→21:02)
[2019-06-05] MEDS: CYANOCOBALAMIN 500 MCG TABLET (VITAMIN B-12) PO SCH (08:14)
[2019-06-05] MEDS: FINASTERIDE 5 MG TAB PO SCH (08:15)
[2019-06-05] MEDS: FLUDROCORTISONE ACETATE 0.1 MG TAB PO SCH (08:15)
[2019-06-05] MEDS: HEPARIN SOD 5,000 UNIT/0.5 ML VIAL SQ SCH ×2 (08:15→21:02)
[2019-06-05] MEDS: ASPIRIN 81 MG ECTAB PO SCH (08:15)
[2019-06-05] MEDS: MIDODRINE HCL 2.5 MG TAB PO SCH ×3 (08:15→16:26)
[2019-06-05] MEDS: BICALUTAMIDE 50 MG TAB PO SCH ×2 (08:16→21:02)
[2019-06-05] MEDS: SODIUM CHLORIDE 0.9% 1000ML 1,000 ML IV SCH (09:14)
[2019-06-05] MEDS ORDERED: FLUDROCORTISONE ACETATE 0.1 MG TAB PO STA (09:53)
--- NOTE | 2019-06-05 09:56 | Hospitalist Progress Note ---
Date of Service June 05, 2019 Assessment & Plan (1) Syncope: Multiple episodes of syncope, progressed to syncope from sitting position Likely secondary to hypotension from adrenal insufficiency aggravated by dehydration. could also be a degree of micturation syncope given his constant urge to void and urinary retention no improvement today, will increas Florinef to 0.2 and watch for response reviewed medication list, some of them can cause syncope PT/OT ordered + orthostatic changes today on vitals can transfer to medical floor (2) Acute hypotension: Likely multifactorial Adrenal insufficiency plus dehydration orthostatic changes, his BP is fine when laying in bed received fluids in the ED, no further fluids needed as he is eating and drinking (3) Acute dehydration: Status post 1 L of normal saline in ED Continue normal saline at 50 cc/h stop fluids today (4) Adrenal insufficiency: Plan is as above Continue prednisone 5 mg twice daily no need for stress dose Continue fludrocortisone but increase to 0.2mg daily (5) Benign 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: hanna placed on 06/04 due to urinary retention, post void residual > 390 urology consulted, appreciate recommendations will go home with hanna to allow bladder to rest continue finasteride hold tolterodine as it could be contributing to bladder flaccidity follows with Dr. Bryce Garcia in office (6) Cancer of prostate, recur risk not determined whether low, med or high: currently on Lupron and Bicalutamide no plans for radiation or surgery as disease is in the lymph nodes most recent PSA was trending down, showing appropriate response discussed with patient's , no role for oncology to see patient while here (7) Nocturia: Likely secondary to hyperactive bladder Failed Trospium as outpatient reports having to urinate every 10-15 minutes at night (8) Peripheral neuropathy: Continue gabapentin (9) Dyslipidemia: Continue simvastatin (10) Essential hypertension: Currently leaving the blood pressure towards the high level, no blood pressure medication given except Proscar for the bladder (11) CAD (coronary artery disease): Continue aspirin (12) Urinary frequency: (13) Constipated: Miralax daily until he moves bowels (14) Cough: minimally productive lungs clear on exam will give Tessalon and Mucinex Subjective patient with more orthostatic changes today, he had symptoms this morning he is frustrated c/o constipation as well as a cough that woke him up last night discussed with patient's over the phone, she is concerned about him coming home right now she is sick and she is small in stature and she is worried about taking care of him if he falls assured her that we would get therapy and make sure he is strong enough to come home labs this AM show leukopenia, Hb is 12, BMP is normal appreciate urology recommendations Review of Systems Review of Systems: All systems reviewed & are unremarkable except as noted in HPI & below Constitutional: + fatigue and + weakness; no fever Respiratory: + cough and + sputum production; no dyspnea and no dyspnea on exertion Cardiovascular: + lightheadedness (pre syncope while standing, orthostatic); no chest pain Gastrointestinal: + constipation; no abdominal pain, no nausea, no vomiting and no diarrhea/loose stools Genitourinary: + problem reported (hanna in place) Physical Exam Constitutional: WD/WN, vitals as above Eyes: PERRL, conjunctivae normal, anicteric sclerae ENMT: external ear and nose normal, oropharynx normal Neck: trachea midline, no thyromegaly Respiratory: normal respiratory effort, lungs clear to auscultation Cardiovascular: RRR, no murmur, no edema Gastrointestinal (Abdomen): normal bowel sounds, soft, nontender, no hepatosplenomegaly Musculoskeletal: no cyanosis or clubbing, extremities motor strength 5/5 Skin: no rashes, warm and dry Neurologic: patellar DTR's 2+ bilat, sensation intact and PERRL, EOMI, accommodation nl, no face palsy, no dysarthria Psychiatric: A+Ox3, euthymic affect Lymphatic: no cervical or axillary lymphadenopathy Results & Data Vital Signs (Past 12 Hours) Vital Signs Temp Pulse Resp BP BP Pulse Ox 06/05/19 08:27 36.9 C 92 H 19 109/66 98 06/05/19 04:51 36.8 C 87 18 150/89 H 97 06/04/19 23:21 37.0 C 95 H 17 169/104 H 96 Laboratory Results Laboratory Results - last 24 hr 06/05/19 06/05/19 05:54 05:54 WBC 2.11 L RBC 3.98 L Hgb 12.1 L Hct 35.7 L MCV 89.7 MCH 30.4 MCHC 33.9 RDW Std Deviation 49.6 H RDW Coeff of Emilee 15.0 H Plt Count 211 MPV 10.3 Sodium 138 Potassium 3.7 Chloride 107 Carbon Dioxide 24 Anion Gap 7.0 BUN 20 H Creatinine 0.85 D Est Cr Clr Drug Dosing 80.6 Est GFR ( Amer) 97.4 Est GFR (Non-Af Amer) 84.0 BUN/Creatinine Ratio 23.7 H Glucose 102 H Calcium 8.1 L Magnesium 1.8 Total Bilirubin 0.5 AST 21 ALT 23 Alkaline Phosphatase 91 Total Protein 6.1 L Albumin 2.8 L Globulin 3.3 Albumin/Globulin Ratio 0.9 Medications Administered Current Inpatient Medications Acetaminophen (Tylenol) 650 mg PO Q4H PRN PRN Reason: Pain or Fever Stop: 07/03/19 16:18 Aspirin (Ecotrin Ectab) 81 mg PO [facility] Stop: 07/04/19 08:59 Last Admin: 06/05/19 08:15 Dose: 81 mg Documented by: Bicalutamide (Casodex) 50 mg PO BID [facility] Stop: 07/03/19 20:59 Last Admin: 06/05/19 08:16 Dose: 50 mg Documented by: Cyanocobalamin (Vitamin B-12) 1,000 mcg PO QAM [facility] Stop: 07/04/19 08:59 Last Admin: 06/05/19 08:14 Dose: 1,000 mcg Documented by: Finasteride (Proscar) 5 mg PO QAM [facility] Stop: 07/04/19 08:59 Last Admin: 06/05/19 08:15 Dose: 5 mg Documented by: Fludrocortisone Acetate (Florinef) [facility] [place] Stop: 07/06/19 08:59 Gabapentin (Neurontin) 300 [facility] [place] Stop: 07/04/19 08:59 Last Admin: 06/05/19 08:14 Dose: 300 mg Documented by: Heparin Sodium (Porcine) (Heparin Sodium (Porcine)) 5,000 units SQ Q12 [facility] Stop: 07/03/19 20:59 Last Admin: 06/05/19 08:15 Dose: 5,000 units Documented by: Midodrine (Proamatine) 5 mg PO TID@0800,1200,1700 [facility] Stop: 07/03/19 18:29 Last Admin: 06/05/19 08:15 Dose: 5 mg Documented by: Prednisone (Prednisone) 5 mg PO BID [facility] Stop: 07/03/19 20:59 Last Admin: 06/05/19 08:14 Dose: 5 mg Documented by: Simvastatin (Zocor) 20 mg PO QPM [facility] Stop: 07/03/19 20:59 Last Admin: 06/04/19 20:30 Dose: 20 mg Documented by: Zolpidem Tartrate (Ambien) 5 mg PO HS PRN PRN Reason: Sleep Stop: 07/03/19 16:18 PG Care Time/CCT Total # of Minutes Spent Total Time Spent with Patient: Total time spent is greater than 50% in coordination of care (as documented) at patient's floor/unit and/or counseling patient: (1) Syncope Syncope type: unspecified Qualified Code(s): R55 - Syncope and collapse
[2019-06-05] MEDS: POLYETHYLENE (MIRALAX) 17 GM PACK PO SCH (13:49)
[2019-06-05] MEDS: BENZONATATE 100 MG CAPSULE PO PRN (16:26)
[2019-06-05] MEDS: guaiFENesin 600 MG TABCR PO SCH (21:01)
[2019-06-05] MEDS: SIMVASTATIN 20 MG TAB PO SCH (21:02)
[2019-06-06] MEDS: BENZONATATE 100 MG CAPSULE PO PRN ×3 (05:13→20:51)
[2019-06-06] MEDS: MIDODRINE HCL 2.5 MG TAB PO SCH ×3 (07:52→17:34)
[2019-06-06] MEDS: BICALUTAMIDE 50 MG TAB PO SCH ×2 (07:53→20:52)
[2019-06-06] MEDS: FLUDROCORTISONE ACETATE 0.1 MG TAB PO SCH (07:53)
[2019-06-06] MEDS: ASPIRIN 81 MG ECTAB PO SCH (07:53)
[2019-06-06] MEDS: POLYETHYLENE (MIRALAX) 17 GM PACK PO SCH (07:54)
[2019-06-06] MEDS: predniSONE 5 MG TAB PO SCH ×2 (07:54→20:52)
[2019-06-06] MEDS: HEPARIN SOD 5,000 UNIT/0.5 ML VIAL SQ SCH ×2 (07:54→20:53)
[2019-06-06] MEDS: GABAPENTIN 300 MG CAP PO SCH (07:54)
[2019-06-06] MEDS: guaiFENesin 600 MG TABCR PO SCH ×2 (07:54→20:52)
[2019-06-06] MEDS: CYANOCOBALAMIN 500 MCG TABLET (VITAMIN B-12) PO SCH (07:55)
[2019-06-06] MEDS: FINASTERIDE 5 MG TAB PO SCH (07:55)
--- NOTE | 2019-06-06 16:21 | Hospitalist Progress Note ---
Date of Service June 06, 2019 Assessment & Plan (1) Syncope: Multiple episodes of syncope, progressed to syncope from sitting position Likely secondary to hypotension from adrenal insufficiency aggravated by dehydration. could also be a degree of micturation syncope given his constant urge to void and urinary retention no presyncope today despite BP dropping, will continue Florinef at 0.2 reviewed medication list, some of them can cause syncope PT/OT ordered, click scores 18 and 19 so he could potentially go home with therapy will need to assess again tomorrow + orthostatic changes today on vitals but no symptoms which was improvement possible d/c tomorrow (2) Acute hypotension: Likely multifactorial Adrenal insufficiency plus dehydration orthostatic changes, his BP is fine when laying in bed received fluids in the ED, no further fluids needed as he is eating and drinking (3) Acute dehydration: Status post 1 L of normal saline in ED fluids stopped on 06/05 (4) Adrenal insufficiency: Plan is as above Continue prednisone 5 mg twice daily no need for stress dose Continue fludrocortisone but increase to 0.2mg daily (5) Benign 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: hanna placed on 06/04 due to urinary retention, post void residual > 390 urology consulted, appreciate recommendations will go home with hanna to allow bladder to rest continue finasteride hold tolterodine as it could be contributing to bladder flaccidity follows with Dr. Bryce Garcia in office urine culture shows no growth (6) Cancer of prostate, recur risk not determined whether low, med or high: currently on Lupron and Bicalutamide no plans for radiation or surgery as disease is in the lymph nodes PSA is < 1 here, showing excellent response discussed with patient's , no role for oncology to see patient while here (7) Nocturia: Likely secondary to hyperactive bladder Failed Trospium as outpatient reports having to urinate every 10-15 minutes at night (8) Peripheral neuropathy: Continue gabapentin chronic issue that makes ambulation difficult even when he was not having orthostatic changes (9) Dyslipidemia: Continue simvastatin (10) Essential hypertension: Currently leaving the blood pressure towards the high level, no blood pressure medication given except Proscar for the bladder (11) CAD (coronary artery disease): Continue aspirin (12) Urinary frequency: (13) Constipated: Miralax daily until he moves bowels will continue, reassess tomorrow (14) Cough: minimally productive lungs clear on exam will give Tessalon and Mucinex, said that symptoms were improved Subjective patient did a little better today with therapy, click scores 18 and 19 could likely go home with home health and home therapy patient is anxious to go home, is concerned about his safety patient still with orthostatic changes, less symptoms today discussed treating this with compression, increased salt intake, Florinef, Midodrine tolerating hanna, no growth on urine culture discussed with his over the phone today, will call her tomorrow morning to discuss discharge planning Review of Systems Review of Systems: All systems reviewed & are unremarkable except as noted in HPI & below Constitutional: + weakness; no fever Respiratory: no cough and no dyspnea Cardiovascular: no chest pain and no edema Gastrointestinal: no abdominal pain, no nausea, no vomiting, no constipation and no diarrhea/loose stools Neurologic: + numbness (chronic neuropathy) Physical Exam Constitutional: WD/WN, vitals as above Eyes: PERRL, conjunctivae normal, anicteric sclerae ENMT: external ear and nose normal, oropharynx normal Neck: trachea midline, no thyromegaly Respiratory: normal respiratory effort, lungs clear to auscultation Cardiovascular: RRR, no murmur, no edema Gastrointestinal (Abdomen): normal bowel sounds, soft, nontender, no hepatosplenomegaly Musculoskeletal: no cyanosis or clubbing, extremities motor strength 5/5 Skin: no rashes, warm and dry Neurologic: patellar DTR's 2+ bilat, sensation intact and PERRL, EOMI, accommodation nl, no face palsy, no dysarthria Psychiatric: A+Ox3, euthymic affect Lymphatic: no cervical or axillary lymphadenopathy Results & Data Vital Signs (Past 12 Hours) Vital Signs Temp Pulse Resp BP Pulse Ox 06/06/19 15:10 36.8 C 76 18 175/89 H 97 06/06/19 07:15 37.1 C 83 17 153/83 H 97 Laboratory Results Laboratory Results - last 24 hr 06/06/19 07:10 Prostate Specific Ag 0.706 Microbiology 06/04/19 13:20 Urine,Indwelling Cath Urine Culture - Final No growth - less than 1,000 colonies/mL. Medications Administered Current Inpatient Medications Acetaminophen (Tylenol) 650 mg PO Q4H PRN PRN Reason: Pain or Fever Stop: 07/03/19 16:18 Aspirin (Ecotrin Ectab) 81 mg PO QAM [facility] Stop: 07/04/19 08:59 Last Admin: 06/06/19 07:53 Dose: 81 mg Documented by: Benzonatate (Tessalon Perle) 100 mg PO TID PRN PRN Reason: Cough Stop: 07/05/19 14:00 Last Admin: 06/06/19 12:50 Dose: 100 mg Documented by: Bicalutamide (Casodex) 50 mg PO BID [facility] Stop: 07/03/19 20:59 Last Admin: 06/06/19 07:53 Dose: 50 mg Documented by: Cyanocobalamin (Vitamin B-12) 1,000 mcg PO QAM [facility] Stop: 07/04/19 08:59 Last Admin: 06/06/19 07:55 Dose: 1,000 mcg Documented by: Finasteride (Proscar) 5 mg PO QAM [facility] Stop: 07/04/19 08:59 Last Admin: 06/06/19 07:55 Dose: 5 mg Documented by: Fludrocortisone Acetate (Florinef) 0.2 mg PO QAM [facility] Stop: 07/06/19 08:59 Last Admin: 06/06/19 07:53 Dose: 0.2 mg Documented by: Gabapentin (Neurontin) 300 mg PO QAM [facility] Stop: 07/04/19 08:59 Last Admin: 06/06/19 07:54 Dose: 300 mg Documented by: Guaifenesin (Mucinex) 600 mg PO Q12 [facility] Stop: 07/05/19 20:59 Last Admin: 06/06/19 07:54 Dose: 600 mg Documented by: Heparin Sodium (Porcine) (Heparin Sodium (Porcine)) 5,000 units SQ Q12 [facility] Stop: 07/03/19 20:59 Last Admin: 06/06/19 07:54 Dose: 5,000 units Documented by: Midodrine (Proamatine) 5 mg PO TID@0800,1200,1700 [facility] Stop: 07/03/19 18:29 Last Admin: 06/06/19 12:50 Dose: 5 mg Documented by: Polyethylene Glycol (Miralax Powder Packet) 17 gm PO DAILY [facility] Stop: 07/05/19 12:29 Last Admin: 06/06/19 07:54 Dose: 17 gm Documented by: Prednisone (Prednisone) 5 mg PO BID [facility] Stop: 07/03/19 20:59 Last Admin: 06/06/19 07:54 Dose: 5 mg Documented by: Simvastatin (Zocor) 20 mg PO QPM [facility] Stop: 07/03/19 20:59 Last Admin: 06/05/19 21:02 Dose: 20 mg Documented by: Zolpidem Tartrate (Ambien) 5 mg PO HS PRN PRN Reason: Sleep Stop: 07/03/19 16:18 PG Care Time/CCT Total # of Minutes Spent Total Time Spent: 40 Total Time Spent with Patient: Total time spent is greater than 50% in coordination of care (as documented) at patient's floor/unit and/or counseling patient: (1) Syncope Syncope type: unspecified Qualified Code(s): R55 - Syncope and collapse
--- NOTE | 2019-06-06 16:22 | Urology Progress Note ---
Date of Service June 06, 2019 Assessment & Plan (1) Benign 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: (2) Cancer of prostate, recur risk not determined whether low, med or high: 79-year-old male with metastatic [place] 5+5 prostate cancer, currently on chemoRx and ADT and adrenal insufficiency, admitted with syncopal episodes and urinary retention. Patient was due to see myself on June 26 at 9:45 AM. Will keep this appointment in place. Outpatient trial of void and self-catheterization teaching has been scheduled for June 14 at 9:45 AM at our [place] office. Time is provided to patient. Would leave [place] in place until then. Good PSA response to the patient's therapies for prostate cancer. Will defer decision as to the timing of chemotherapy in the context of the patient's orthostasis to the medical oncology service. Continue Lupron on schedule. Continue medical management of acute difficulties most notably ongoing issues with orthostasis. Thank you for allowing us to participate in this patient's acute care. Please contact our service with any questions or concerns. Subjective 79-year-old male with aggressive, rapid onset metastatic [place] 5+5 prostate cancer well-known to myself. He is currently admitted due to exacerbation of his chronic orthostasis associated with several episodes of syncope. In addition to his difficulties with blood pressure he is currently in urinary retention and had acute issues with constipation and adrenal insufficiency. His inpatient notes and events are noted. He is receiving androgen deprivation and chemotherapy for his prostate malignancy and his PSA has dramatically dropped to 0.7 from 40 most recently. Review of Systems Constitutional: no fever and no chills Eyes: no diplopia Ear, Nose, Mouth, Throat: no ear pain and no ear trauma Respiratory: + cough Cardiovascular: no chest pain Gastrointestinal: no abdominal pain and no vomiting Genitourinary: + difficulty urinating Integumentary: no acne and no boil Neurologic: + falls Endocrine: + fatigue Hematologic / Lymphatic: no lymphadenopathy Allergy / Immunological: no tongue swelling Physical Exam Constitutional: + thin; no acute distress Eyes: eyes not dysmorphic ENMT: Ears: no external ear abnormality Neck: trachea midline; no anterior neck swelling Respiratory: no respiratory distress and does not use accessory muscles Cardiovascular: Vessels: radial pulses present Gastrointestinal (Abdomen): Inspection/Auscultation: abdomen not distended Percussion/Palpation: abdomen soft; abdomen nontender Musculoskeletal: Head/Neck/Chest: normocephalic and neck supple Skin: normal turgor Neurologic: awake; not obtunded Psychiatric: Orientation: oriented x 3 Lymphatic: no lymphadenopathy Results & Data Vital Signs (Past 12 Hours) Vital Signs Temp Pulse Resp BP Pulse Ox 06/06/19 15:10 36.8 C 76 18 175/89 H 97 06/06/19 07:15 37.1 C 83 17 153/83 H 97 PG Care Time/CCT Total # of Minutes Spent Total Time Spent with Patient: Total time spent is greater than 50% in coordination of care (as documented) at patient's floor/unit and/or counseling patient:
[2019-06-06] MEDS: SIMVASTATIN 20 MG TAB PO SCH (20:52)
[2019-06-07] MEDS: MIDODRINE HCL 2.5 MG TAB PO SCH ×3 (07:59→17:01)
[2019-06-07] MEDS: FINASTERIDE 5 MG TAB PO SCH (07:59)
[2019-06-07] MEDS: FLUDROCORTISONE ACETATE 0.1 MG TAB PO SCH (07:59)
[2019-06-07] MEDS: ASPIRIN 81 MG ECTAB PO SCH (07:59)
[2019-06-07] MEDS: predniSONE 5 MG TAB PO SCH ×2 (08:00→20:41)
[2019-06-07] MEDS: GABAPENTIN 300 MG CAP PO SCH (08:00)
[2019-06-07] MEDS: BICALUTAMIDE 50 MG TAB PO SCH ×2 (08:00→20:42)
[2019-06-07] MEDS: CYANOCOBALAMIN 500 MCG TABLET (VITAMIN B-12) PO SCH (08:00)
[2019-06-07] MEDS: guaiFENesin 600 MG TABCR PO SCH ×2 (08:00→20:43)
[2019-06-07] MEDS: POLYETHYLENE (MIRALAX) 17 GM PACK PO SCH (08:01)
[2019-06-07] MEDS: HEPARIN SOD 5,000 UNIT/0.5 ML VIAL SQ SCH ×2 (08:01→20:41)
[2019-06-07 08:23] LABS: Hematocrit (blood only) 35.5 % (42-52); Hemoglobin 11.8 g/dL (14.0-18.0); Mean Corpuscular Hemoglobin 30.3 pg (25-34); Mean Corpuscular Hgb Conc 33.2 g/dL (32-36); Mean Corpuscular Volume 91.3 fL (80-100); Mean Platelet Volume 10.3 fL (7.4-10.4); Platelet Count 212 K/uL (130-400); RDW Coefficient of Variation 15.4 % (11.5-14.5); RDW Standard Deviation 51.5 fL (36.4-46.3); Red Blood Count 3.89 M/uL (4.7-6.1); White Blood Count 0.81 K/uL (4.8-10.8)
[2019-06-07 08:38] LABS: BUN Creatinine Ratio 21.8 (10-20); Calcium 8.1 mg/dl (8.5-10.1); Creatinine Clr Calc Pharmacy 70.5 ml/min; Est GFR (African American) 85.8; Est GFR (Non-African American) 74.1; Potassium 3.7 mmol/L (3.5-5.1)
[2019-06-07] MEDS: BENZONATATE 100 MG CAPSULE PO PRN ×2 (10:56→21:03)
--- NOTE | 2019-06-07 15:54 | Hospitalist Progress Note ---
Date of Service June 07, 2019 Assessment & Plan (1) Syncope: Multiple episodes of syncope, progressed to syncope from sitting position Likely secondary to hypotension from adrenal insufficiency aggravated by dehydration. could also be a degree of micturation syncope given his constant urge to void and urinary retention no presyncope for several days, will continue Florinef at 0.2 reviewed medication list, some of them can cause syncope PT/OT ordered, click scores 18 and 19 so he could potentially go home with therapy plan tentatively to go home tomorrow + orthostatic changes today on vitals but no symptoms which was improvement possible d/c tomorrow (2) Leukopenia: WBC is 0.8, due to chemotherapy about two weeks ago repeat tomorrow to look for improvement Hb and platelets stable (3) Acute hypotension: Likely multifactorial Adrenal insufficiency plus dehydration orthostatic changes, his BP is fine when laying in bed received fluids in the ED, no further fluids needed as he is eating and drinking (4) Acute dehydration: Status post 1 L of normal saline in ED fluids stopped on 06/05 (5) Adrenal insufficiency: Plan is as above Continue prednisone 5 mg twice daily no need for stress dose Continue fludrocortisone but increase to 0.2mg daily (6) Benign 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: hanna placed on 06/04 due to urinary retention, post void residual > 390 urology consulted, appreciate recommendations will go home with hanna to allow bladder to rest continue finasteride hold tolterodine as it could be contributing to bladder flaccidity follows with Dr. Bryce Garcia in office urine culture shows no growth (7) Cancer of prostate, recur risk not determined whether low, med or high: currently on Lupron and Bicalutamide no plans for radiation or surgery as disease is in the lymph nodes PSA is < 1 here, showing excellent response discussed with patient's , no role for oncology to see patient while here (8) Nocturia: Likely secondary to hyperactive bladder Failed Trospium as outpatient reports having to urinate every 10-15 minutes at night (9) Peripheral neuropathy: Continue gabapentin chronic issue that makes ambulation difficult even when he was not having orthostatic changes (10) Dyslipidemia: Continue simvastatin (11) Essential hypertension: Currently leaving the blood pressure towards the high level, no blood pressure medication given except Proscar for the bladder (12) CAD (coronary artery disease): Continue aspirin (13) Urinary frequency: (14) Constipated: Miralax daily moved bowels (15) Cough: minimally productive lungs clear on exam will give Tessalon and Mucinex, said that symptoms were improved Subjective patient feeling better today, but he was fatigued and refused to walk in the halls with therapy he again had orthostatic changes with occupational therapy, less symptoms reviewed labs, WBC down to 0.[address] Tobin over the phone, he had chemotherapy about two weeks ago, leukopenia expected would not recommend Neupogen since he does not have a bacterial infection patient eating and drinking well, making adequate urine via hanna discussed that I would want his WBC to start to improve prior to going home d/w CM, will arrange for home therapy and home nursing, may be ready by tomorrow Review of Systems Review of Systems: All systems reviewed & are unremarkable except as noted in HPI & below Physical Exam Constitutional: WD/WN, vitals as above Eyes: PERRL, conjunctivae normal, anicteric sclerae ENMT: external ear and nose normal, oropharynx normal Neck: trachea midline, no thyromegaly Respiratory: normal respiratory effort, lungs clear to auscultation Cardiovascular: RRR, no murmur, no edema Gastrointestinal (Abdomen): normal bowel sounds, soft, nontender, no hepatosplenomegaly Musculoskeletal: no cyanosis or clubbing, extremities motor strength 5/5 Skin: no rashes, warm and dry Neurologic: patellar DTR's 2+ bilat, sensation intact and PERRL, EOMI, accommodation nl, no face palsy, no dysarthria Psychiatric: A+Ox3, euthymic affect Lymphatic: no cervical or axillary lymphadenopathy Results & Data Vital Signs (Past 12 Hours) Vital Signs Temp Pulse Resp BP Pulse Ox 06/07/19 15:00 36.7 C 68 20 123/75 97 06/07/19 07:00 36.7 C 72 16 130/76 98 Laboratory Results Laboratory Results - last 24 hr 06/07/19 06/07/19 07:56 07:56 WBC 0.81 L* RBC 3.89 L Hgb 11.8 L Hct 35.5 L MCV 91.3 MCH 30.3 MCHC 33.2 RDW Std Deviation 51.5 H RDW Coeff of Emilee 15.4 H Plt Count 212 MPV 10.3 Sodium 137 Potassium 3.7 Chloride 104 Carbon Dioxide 27 Anion Gap 7.0 BUN 21 H Creatinine 0.98 Est Cr Clr Drug Dosing 70.5 Est GFR ( Amer) 85.8 Est GFR (Non-Af Amer) 74.1 BUN/Creatinine Ratio 21.8 H Glucose 93 Calcium 8.1 L Medications Administered Current Inpatient Medications Acetaminophen (Tylenol) 650 mg PO Q4H PRN PRN Reason: Pain or Fever Stop: 07/03/19 16:18 [facility]) [facility] Stop: 07/04/19 08:59 Last Admin: 06/07/19 07:59 Dose: 81 mg Documented by: Benzonatate (Tessalon Perle) 100 mg PO TID PRN PRN Reason: Cough Stop: 07/05/19 14:00 Last Admin: 06/07/19 10:56 Dose: 100 mg Documented by: Bicalutamide (Casodex) 50 mg PO BID [facility] Stop: 07/03/19 20:59 Last Admin: 06/07/19 08:00 Dose: 50 mg Documented by: Cyanocobalamin (Vitamin B-12) 1,000 mcg PO QAM [facility] Stop: 07/04/19 08:59 Last Admin: 06/07/19 08:00 Dose: 1,000 mcg Documented by: Finasteride (Proscar) 5 mg PO QAM [facility] Stop: 07/04/19 08:59 Last Admin: 06/07/19 07:59 Dose: 5 mg Documented by: Fludrocortisone Acetate (Florinef) [facility] Stop: 07/06/19 08:59 Last Admin: 06/07/19 07:59 Dose: 0.2 mg Documented by: Gabapentin (Neurontin) 300 mg PO QAM [facility] Stop: 07/04/19 08:59 Last Admin: 06/07/19 08:00 Dose: 300 mg Documented by: Guaifenesin (Mucinex) 600 mg PO Q12 [facility] Stop: 07/05/19 20:59 Last Admin: 06/07/19 08:00 Dose: 600 mg Documented by: Heparin Sodium (Porcine) (Heparin Sodium (Porcine)) 5,000 units SQ Q12 [facility] Stop: 07/03/19 20:59 Last Admin: 06/07/19 08:01 Dose: Not Given Documented by: Midodrine (Proamatine) 5 mg PO TID@0800,1200,1700 [facility] Stop: 07/03/19 18:29 Last Admin: 06/07/19 12:00 Dose: 5 mg Documented by: Polyethylene Glycol (Miralax Powder Packet) 17 gm PO DAILY [facility] Stop: 07/05/19 12:29 Last Admin: 06/07/19 08:01 Dose: 17 gm Documented by: Prednisone (Prednisone) 5 mg PO BID [facility] Stop: 07/03/19 20:59 Last Admin: 06/07/19 08:00 Dose: 5 mg Documented by: Simvastatin (Zocor) 20 mg PO QPM [facility] Stop: 07/03/19 20:59 Last Admin: 06/06/19 20:52 Dose: 20 mg Documented by: Zolpidem Tartrate (Ambien) 5 mg PO HS PRN PRN Reason: Sleep Stop: 07/03/19 16:18 PG Care Time/CCT Total # of Minutes Spent Total Time Spent with Patient: Total time spent is greater than 50% in coordination of care (as documented) at patient's floor/unit and/or counseling patient: (1) Syncope Syncope type: unspecified Qualified Code(s): R55 - Syncope and collapse
[2019-06-07] MEDS: SIMVASTATIN 20 MG TAB PO SCH (20:40)
[2019-06-08] MEDS: HEPARIN SOD 5,000 UNIT/0.5 ML VIAL SQ SCH ×2 (08:32→20:16)
[2019-06-08] MEDS: BENZONATATE 100 MG CAPSULE PO PRN (08:32)
[2019-06-08] MEDS: POLYETHYLENE (MIRALAX) 17 GM PACK PO SCH (08:33)
[2019-06-08] MEDS: CYANOCOBALAMIN 500 MCG TABLET (VITAMIN B-12) PO SCH (08:33)
[2019-06-08] MEDS: FINASTERIDE 5 MG TAB PO SCH (08:33)
[2019-06-08] MEDS: GABAPENTIN 300 MG CAP PO SCH (08:33)
[2019-06-08] MEDS: guaiFENesin 600 MG TABCR PO SCH ×2 (08:33→20:15)
[2019-06-08] MEDS: predniSONE 5 MG TAB PO SCH ×2 (08:33→20:16)
[2019-06-08] MEDS: FLUDROCORTISONE ACETATE 0.1 MG TAB PO SCH (08:34)
[2019-06-08] MEDS: ASPIRIN 81 MG ECTAB PO SCH (08:34)
[2019-06-08] MEDS: MIDODRINE HCL 2.5 MG TAB PO SCH ×2 (08:35→12:50)
[2019-06-08] MEDS: BICALUTAMIDE 50 MG TAB PO SCH ×2 (08:36→20:17)
[2019-06-08 08:40] LABS: Hematocrit (blood only) 35.7 % (42-52); Mean Corpuscular Hemoglobin 30.5 pg (25-34); Mean Corpuscular Hgb Conc 33.6 g/dL (32-36); Mean Corpuscular Volume 90.6 fL (80-100); Mean Platelet Volume 10.4 fL (7.4-10.4); Platelet Count 221 K/uL (130-400); RDW Coefficient of Variation 15.6 % (11.5-14.5); RDW Standard Deviation 51.8 fL (36.4-46.3); Red Blood Count 3.94 M/uL (4.7-6.1); White Blood Count 0.97 K/uL (4.8-10.8)
[2019-06-08 09:08] LABS: Basophils # (auto) 0.03 K/uL (0-0.2); Basophils % (auto) 3.1 %; Eosinophils # (auto) 0.02 K/uL (0-0.5); Eosinophils % (auto) 2.1 %; Immature Granulocytes # (auto) 0.01 K/uL (0.00-0.02); Lymphocytes # (auto) 0.36 K/uL (1.2-3.4); Lymphocytes % (auto) 37.1 %; Monocytes # (auto) 0.39 K/uL (0.11-0.59); Monocytes % (auto) 40.2 %; Neutrophils # (auto) 0.16 K/uL (1.4-6.5); Neutrophils % (auto) 16.5 %
[2019-06-08 09:10] LABS: BUN Creatinine Ratio 21.1 (10-20); Calcium 7.9 mg/dl (8.5-10.1); Creatinine Clr Calc Pharmacy 72.6 ml/min; Est GFR (Non-African American) 75.9; Potassium 3.6 mmol/L (3.5-5.1)
[2019-06-08 09:11] LABS: RBC Morphology Unremarkable
[2019-06-08] MEDS ORDERED: FILGRASTIM 480 MCG/1.6 ML VIAL SC ONE (10:00)
--- NOTE | 2019-06-08 16:24 | Hospitalist Progress Note ---
Date of Service June 08, 2019 Assessment & Plan (1) Syncope: Multiple episodes of syncope, progressed to syncope from sitting position Likely secondary to hypotension from adrenal insufficiency aggravated by dehydration. could also be a degree of micturation syncope given his constant urge to void and urinary retention no presyncope for several days, will continue Florinef at 0.2 reviewed medication list, some of them can cause syncope PT/OT ordered, click scores 18 and 19 so he could potentially go home with therapy plan tentatively to go home tomorrow in the morning with home health (2) Leukopenia: WBC is 0.9, due to chemotherapy about two weeks ago PMN quite low at 0.1 will give Neupogen 480mcg, repeat CBC in the AM (3) Acute hypotension: Likely multifactorial Adrenal insufficiency plus dehydration orthostatic changes, his BP is fine when laying in bed received fluids in the ED, no further fluids needed as he is eating and drinking will stop Midodrine today, watch BP (4) Acute dehydration: Status post 1 L of normal saline in ED fluids stopped on 06/05 (5) Adrenal insufficiency: Plan is as above Continue prednisone 5 mg twice daily no need for stress dose Continue fludrocortisone but increase to 0.2mg daily (6) Benign 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: hanna placed on 06/04 due to urinary retention, post void residual > 390 urology consulted, appreciate recommendations will go home with hanna to allow bladder to rest continue finasteride hold tolterodine as it could be contributing to bladder flaccidity follows with Dr. Bryce Garcia in office urine culture shows no growth (7) Cancer of prostate, recur risk not determined whether low, med or high: currently on Lupron and Bicalutamide no plans for radiation or surgery as disease is in the lymph nodes PSA is < 1 here, showing excellent response discussed with patient's , no role for oncology to see patient while here (8) Nocturia: Likely secondary to hyperactive bladder Failed Trospium as outpatient reports having to urinate every 10-15 minutes at night (9) Peripheral neuropathy: Continue gabapentin chronic issue that makes ambulation difficult even when he was not having orthostatic changes (10) Dyslipidemia: Continue simvastatin (11) Essential hypertension: Currently leaving the blood pressure towards the high level, no blood pressure medication given except Proscar for the bladder (12) CAD (coronary artery disease): Continue aspirin (13) Urinary frequency: (14) Constipated: Miralax daily moved bowels (15) Cough: minimally productive lungs clear on exam will give Tessalon and Mucinex, said that symptoms were improved Subjective patient says he feels better today no dizziness with drop in BP WBC is still low at 0.9 and PMN low at 0.1 eating well wants to go home but discussed that it would be better if his WBC was higher discussed with his over the phone, will plan to d/c home tomorrow morning Review of Systems Review of Systems: All systems reviewed & are unremarkable except as noted in HPI & below Physical Exam Constitutional: WD/WN, vitals as above Eyes: PERRL, conjunctivae normal, anicteric sclerae ENMT: external ear and nose normal, oropharynx normal Neck: trachea midline, no thyromegaly Respiratory: normal respiratory effort, lungs clear to auscultation Cardiovascular: RRR, no murmur, no edema Gastrointestinal (Abdomen): normal bowel sounds, soft, nontender, no hepatosplenomegaly Musculoskeletal: no cyanosis or clubbing, extremities motor strength 5/5 Skin: no rashes, warm and dry Neurologic: patellar DTR's 2+ bilat, sensation intact and PERRL, EOMI, accommodation nl, no face palsy, no dysarthria Psychiatric: A+Ox3, euthymic affect Lymphatic: no cervical or axillary lymphadenopathy Results & Data Vital Signs (Past 12 Hours) Vital Signs Temp Pulse Resp BP Pulse Ox 06/08/19 15:00 36.7 C 86 18 165/88 H 97 06/08/19 11:41 37.5 C 86 18 169/90 H 96 06/08/19 07:25 36.9 C 90 16 157/84 H 98 Laboratory Results Laboratory Results - last 24 hr 06/08/19 06/08/19 08:11 08:11 WBC 0.97 L* RBC 3.94 L Hgb 12.0 L Hct 35.7 L MCV 90.6 MCH 30.5 MCHC 33.6 RDW Std Deviation 51.8 H RDW Coeff of Emilee 15.6 H Plt Count 221 MPV 10.4 Immature Gran % (Auto) 1.0 Neut % (Auto) 16.5 Lymph % (Auto) 37.1 Harmon % (Auto) 40.2 Eos % (Auto) 2.1 Baso % (Auto) 3.1 Immature Gran # (Auto) 0.01 Neut # (Auto) 0.16 L* Lymph # (Auto) 0.36 L Harmon # (Auto) 0.39 Eos # (Auto) 0.02 Baso # (Auto) 0.03 RBC Morphology Unremarkable Sodium 137 Potassium 3.6 Chloride 105 Carbon Dioxide 25 Anion Gap 7.0 BUN 20 H Creatinine 0.96 Est Cr Clr Drug Dosing 72.6 Est GFR ( Amer) 88.0 Est GFR (Non-Af Amer) 75.9 BUN/Creatinine Ratio 21.1 H Glucose 110 H Calcium 7.9 L Medications Administered Current Inpatient Medications Acetaminophen (Tylenol) 650 mg PO Q4H PRN PRN Reason: Pain or Fever Stop: 07/03/19 16:18 Aspirin ([facility]) [facility] Stop: 07/04/19 08:59 Last Admin: 06/08/19 08:34 Dose: 81 mg Documented by: Benzonatate (Tessalon Perle) 100 mg PO TID PRN PRN Reason: Cough Stop: 07/05/19 14:00 Last Admin: 06/08/19 08:32 Dose: 100 mg Documented by: Bicalutamide (Casodex) 50 mg PO BID [facility] Stop: 07/03/19 20:59 Last Admin: 06/08/19 08:36 Dose: 50 mg Documented by: Cyanocobalamin (Vitamin B-12) 1,000 mcg PO QAM [facility] Stop: 07/04/19 08:59 Last Admin: 06/08/19 08:33 Dose: 1,000 mcg Documented by: Finasteride (Proscar) 5 mg PO [facility] Stop: 07/04/19 08:59 Last Admin: 06/08/19 08:33 Dose: 5 mg Documented by: Fludrocortisone Acetate (Florinef) 0.2 mg PO [facility] Stop: 07/06/19 08:59 Last Admin: 06/08/19 08:34 Dose: 0.2 mg Documented by: Gabapentin (Neurontin) 300 mg PO QAM [facility] Stop: 07/04/19 08:59 Last Admin: 06/08/19 08:33 Dose: 300 mg Documented by: Guaifenesin (Mucinex) 600 mg PO Q12 [facility] Stop: 07/05/19 20:59 Last Admin: 06/08/19 08:33 Dose: 600 mg Documented by: Heparin Sodium (Porcine) (Heparin Sodium (Porcine)) 5,000 units SQ Q12 [facility] Stop: 07/03/19 20:59 Last Admin: 06/08/19 08:32 Dose: 5,000 units Documented by: Midodrine (Proamatine) 5 mg PO TID@0800,1200,1700 [facility] Stop: 07/03/19 18:29 Last Admin: 06/08/19 12:50 Dose: 5 mg Documented by: Polyethylene Glycol (Miralax Powder Packet) 17 gm PO DAILY [facility] Stop: 07/05/19 12:29 Last Admin: 06/08/19 08:33 Dose: 17 gm Documented by: Prednisone (Prednisone) 5 mg PO BID [facility] Stop: 07/03/19 20:59 Last Admin: 06/08/19 08:33 Dose: 5 mg Documented by: Simvastatin (Zocor) 20 mg PO QPM [facility] Stop: 07/03/19 20:59 Last Admin: 06/07/19 20:40 Dose: 20 mg Documented by: Zolpidem Tartrate (Ambien) 5 mg PO HS PRN PRN Reason: Sleep Stop: 07/03/19 16:18 PG Care Time/CCT Total # of Minutes Spent Total Time Spent with Patient: Total time spent is greater than 50% in coordination of care (as documented) at patient's floor/unit and/or counseling patient: (1) Syncope Syncope type: unspecified Qualified Code(s): R55 - Syncope and collapse
[2019-06-08] MEDS: SIMVASTATIN 20 MG TAB PO SCH (20:17)
[2019-06-08] MEDS ORDERED: LORazepam 0.5 MG TAB PO PRN (20:28)
[2019-06-09 08:25] LABS: Hematocrit (blood only) 33.7 % (42-52); Hemoglobin 11.2 g/dL (14.0-18.0); Mean Corpuscular Hemoglobin 30.2 pg (25-34); Mean Corpuscular Hgb Conc 33.2 g/dL (32-36); Mean Corpuscular Volume 90.8 fL (80-100); Mean Platelet Volume 9.9 fL (7.4-10.4); Nucleated RBC # (auto) 0.02 K/uL (0-0); Nucleated RBC % (auto) 0.7 %; Platelet Count 191 K/uL (130-400); RDW Coefficient of Variation 15.9 % (11.5-14.5); RDW Standard Deviation 52.9 fL (36.4-46.3); Red Blood Count 3.71 M/uL (4.7-6.1); White Blood Count 2.67 K/uL (4.8-10.8)
[2019-06-09] MEDS: GABAPENTIN 300 MG CAP PO SCH (08:29)
[2019-06-09] MEDS: guaiFENesin 600 MG TABCR PO SCH (08:30)
[2019-06-09] MEDS: predniSONE 5 MG TAB PO SCH (08:30)
[2019-06-09] MEDS: ASPIRIN 81 MG ECTAB PO SCH (08:30)
[2019-06-09] MEDS: FLUDROCORTISONE ACETATE 0.1 MG TAB PO SCH (08:31)
[2019-06-09] MEDS: POLYETHYLENE (MIRALAX) 17 GM PACK PO SCH (08:31)
[2019-06-09] MEDS: CYANOCOBALAMIN 500 MCG TABLET (VITAMIN B-12) PO SCH (08:32)
[2019-06-09] MEDS: BICALUTAMIDE 50 MG TAB PO SCH (08:33)
[2019-06-09] MEDS: FINASTERIDE 5 MG TAB PO SCH (08:33)
[2019-06-09] MEDS: HEPARIN SOD 5,000 UNIT/0.5 ML VIAL SQ SCH (08:37)
[2019-06-09 09:06] LABS: Basophils # (auto) 0.03 K/uL (0-0.2); Basophils % (auto) 1.1 %; Eosinophils # (auto) 0.03 K/uL (0-0.5); Eosinophils % (auto) 1.1 %; Immature Granulocytes # (auto) 0.01 K/uL (0.00-0.02); Immature Granulocytes % (auto) 0.4 %; Lymphocytes # (auto) 0.55 K/uL (1.2-3.4); Lymphocytes % (auto) 20.6 %; Monocytes # (auto) 0.68 K/uL (0.11-0.59); Monocytes % (auto) 25.5 %; Neutrophils # (auto) 1.37 K/uL (1.4-6.5); Neutrophils % (auto) 51.3 %
--- NOTE | 2019-06-09 12:16 | Discharge Summary ---
Date of Service June 09, 2019 Principal Diagnosis Syncope due to orthostatic hypotension Discharge Exam Constitutional WD/WN, vitals as above Eyes PERRL, conjunctivae normal, anicteric sclerae ENMT external ear and nose normal, oropharynx normal Neck trachea midline, no thyromegaly Respiratory normal respiratory effort, lungs clear to auscultation Cardiovascular RRR, no murmur, no edema Gastrointestinal (Abdomen) normal bowel sounds, soft, nontender, no hepatosplenomegaly Musculoskeletal no cyanosis or clubbing, extremities motor strength 5/5 Skin no rashes, warm and dry Neurologic patellar DTR's 2+ bilat, sensation intact and PERRL, EOMI, accommodation nl, no face palsy, no dysarthria Psychiatric A+Ox3, euthymic affect Lymphatic no cervical or axillary lymphadenopathy Discharge Data Allergies Allergy/AdvReac Type Severity Reaction Status Date / Time tamsulosin [From Flomax] AdvReac Verified 06/03/19 13:08 Consultations 06/03/19 14:03 ED Decision to Admit Stat 06/04/19 09:48 Consult Urology Routine Hospital Course (1) Syncope: Multiple episodes of syncope, progressed to syncope from sitting position Likely secondary to hypotension from adrenal insufficiency aggravated by dehydration. could also be a degree of micturation syncope given his constant urge to void and urinary retention no presyncope for several days, will continue Florinef at 0.2 reviewed medication list, some of them can cause syncope but they are essential to treatment currently, specifically for prostate CA PT/OT ordered, click scores 18 and 19 so he can go home with therapy patient knows to eat plenty of salt, stay well hydrated, use a walker or cane educated on wearing compression stockings he knows to pause between position changes, to never stand up and start walking immediately (2) Leukopenia: due to chemotherapy about two weeks ago PMN quite low at 0.1 on 06/08 resolved with Neupogen 480mcg WBC and PMN both up to safe levels no signs of infection follow up with Dr. Tobin as previously scheduled (3) Acute hypotension: Likely multifactorial Adrenal insufficiency plus dehydration orthostatic changes, his BP is fine when laying in bed received fluids in the ED, no further fluids needed as he is eating and drinking resolved with increase in Florinef and hydration (4) Acute dehydration: Status post 1 L of normal saline in ED fluids stopped on 06/05 (5) Adrenal insufficiency: Plan is as above Continue prednisone 5 mg twice daily no need for stress dose Continue fludrocortisone but increase to 0.2mg daily (6) Benign 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: hanna placed on 06/04 due to urinary retention, post void residual > 390 urology consulted, appreciate recommendations will go home with hanna to allow bladder to rest continue finasteride hold tolterodine as it could be contributing to bladder flaccidity follows with Dr. Bryce Garcia in office urine culture shows no growth (7) Cancer of prostate, recur risk not determined whether low, med or high: currently on Lupron and Bicalutamide and follows with Dr. Tobin for chemo no plans for radiation or surgery as disease is in the lymph nodes PSA is < 1 here, showing excellent response discussed with patient's , no role for oncology to see patient while here he will follow up with Dr. Tobin for further chemotherapy (8) Nocturia: Likely secondary to hyperactive bladder Failed Trospium as outpatient reports having to urinate every 10-15 minutes at night (9) Peripheral neuropathy: Continue gabapentin chronic issue that makes ambulation difficult even when he was not having orthostatic changes (10) Dyslipidemia: Continue simvastatin (11) Essential hypertension: Currently leaving the blood pressure towards the high level, no blood pressure medication given except Proscar for the bladder (12) CAD (coronary artery disease): Continue aspirin (13) Urinary frequency: (14) Constipated: Miralax daily moved bowels (15) Cough: minimally productive lungs clear on exam will give Tessalon and Mucinex, said that symptoms were improved Total Time Total Time Spent Total Time Spent (In Minutes): 38 minutes Total Time Includes: Examination of the Patient, Discharge Planning, Medication Reconciliation and Other (long talk with and son at the bedside) Discharge Plan Discharge Items Patient Disposition: Home - Home Health Services Reason For Visit: ORTHOSTATIC HYPOTENSION Discharge Diagnosis: Orthostatic hypotension Leukopenia, neutropenia Prostate cancer Condition on Discharge: Good Goals: improve strength and mobility follow up with Dr. Tobin as previously scheduled follow up with Urology on 06/14/19 for void trial in the office Activity: Resume your previous activity Driving/Machine Use: no driving indefinitely due to syncope Weightbearing: Full weightbearing Non-emergency contact: Primary Care Provider and Oncologist Call non-emergency contact if: you have any medication questions, your symptoms worsen, your pain is not controlled and you have a fever Follow-up/Referrals: Bryce Garcia MD [Physician] - 06/26/19 9:45 am (Please, follow up at [facility] Urology Office on MondayJune 26 at 9:45 am. *The office is located at [address] in [place]. If you need to change this appointment, call the office at [phone].) Jaime Parham [Primary Care Provider] - 06/13/19 8:45 am (Please, follow up with Dr. Parham on June 13 at 8:45 am. *If you need to change this appointment, call the office at [phone] option #3. ) [facility],Nurse [Physician] - 06/14/19 9:45 am (Outpatient trial of void and self-catheterization teaching at our [place] office) Diet: Regular Diet Comment: eat at least 2gm of sodium a day Addtl Attending Provider Instructions: Medications: - FLUDROCORTISONE: dose increased from 0.1mg to 0.2mg, this is the max dose, new scripts sent to pharmacy - PREDNISONE: dose adjusted to 5mg twice a day, new script sent to pharmacy - TESSALON: use every 8 hours as needed for cough, you can also use Mucinex over the counter Urinary retention due to enlarged prostate hanna catheter placed, will stay in place until you see urology on 06/14 for voiding trial continue on Finasteride cannot use Flomax due to orthostatic blood pressure changes Syncope, orthostatic hypotension persistent issue that is very diffiult to manage likely multifactorial with adrenal insufficiency from cancer treatment, aging - treatment plan for the orthostatic hypotension is as follows eat A LOT of salt, at least 2gm a day, add salt to food, eat salty snacks (olives, pickles etc) stay well hydrated, drink at least 2 liters of fluid a day use compression stockings at all times to keep volume out of legs Fludrocortisone increased to 0.2mg every morning Prednisone adjusted to 5mg twice a day you NEED to remember to take your time with position changes never stand up and start walking right away, you need to stand up, wait almost a minute and then walk never walk without a walker or cane or hand rails Leukopenia, neutropenia (low white blood cell count) due to recent chemotherapy resolved today on testing, you are no longer immunocompromised FOLLOW UP - see the visits arranged above - also, you need to follow up with oncology as previously scheduled Pending Studies at Discharge: No Stand-Alone Forms: My [facility], Smoking Cessation Medications and DC Order Prescriptions: New fludrocortisone 0.1 mg Tablet 0.2 mg PO QAM 30 Days Qty: 60 RF: 1 prednisone 5 mg Tablet 5 mg PO BID Qty: 60 RF: 1 benzonatate [Tessalon Perles] 100 mg Capsule 100 mg PO TID PRN (Reason: cough) 7 Days Qty: 21 RF: 0 Continued bicalutamide [Casodex] 50 mg tablet 50 mg PO BID Qty: 60 RF: 3 cyanocobalamin (vitamin B-12) [Vitamin B-12] 1,000 mcg Tablet 1,000 mcg PO QAM RF: 0 aspirin [Aspir-81] 81 mg Tablet,Delayed Release (Dr/Ec) 81 mg PO QAM RF: 0 simvastatin 20 mg tablet 20 mg PO QPM RF: 0 gabapentin 300 mg capsule 300 mg PO QAM RF: 0 finasteride 5 mg tablet 5 mg PO QAM RF: 0 garlic Tablet 500 mg PO QAM RF: 0 Discontinued ciprofloxacin HCl 500 mg tablet 500 mg PO BID Qty: 6 RF: 0 prednisone 20 mg tablet 20 mg PO QAM RF: 0 fludrocortisone 0.1 mg tablet 0.1 mg PO QAM RF: 0 Discharge Orders: Discharge Order (Routine); Ordered 06/09/19 Ordered By: Vaughn Cornejo Admission Data Admit Date/Time: 06/03/19 16:19 Attending Provider: Vaughn Cornejo Admit Provider: Maegan Maxwell Primary Care Provider: Jaime Parham Other Providers: Maegan Maxwell ; Bryce Garcia I. Other Interventions: Discharge Summary Assessment (RN) Last Done: 06/09/19 12:23 DC Date/Time DO NOT enter until pt leaves facility: 06/09/19 13:01
== END 2019-06-09 13:01 | disposition home health service (06) | DRG 315 ==
LOC: ED 12:16 → SUATTDRO 16:19 → 2E 16:19 → 2W 06-05 09:53

== ENCOUNTER 2019-07-20 09:47 | Inpatient (IN) ==
[2019-07-20] MEDS ORDERED: SODIUM CHLORIDE 0.9% 1000ML 500 ML IV ONE (10:02)
--- NOTE | 2019-07-20 10:39 | XRay Report ---
XR chest 1V portable CLINICAL HISTORY: Sepsis COMPARISON STUDY: PET/CT April 17, 2019. FINDINGS: Left shoulder arthroplasty is noted. There is no pneumothorax or pleural effusion. Intersti tial thickening is noted with asymmetric left lung airspace opacities. Cardiac size is normal. Medias tinal contours are normal. IMPRESSION: Asymmetric interstitial thickening and airspace opacities within the left lung. The find ings may reflect pneumonia or asymmetric pulmonary edema. Radiographic follow-up is recommended. ACT 112: Negative or not required by law. Electronically signed by: Luis Rajan M.D. 07/20/2019 10:37 AM
[2019-07-20 11:00] LABS: iSTAT Creatinine 1.1 mg/dl (0.6-1.3); iSTAT Hemoglobin 10.5 g/dl (14.0-18.0); iSTAT Ionized Calcium 0.98 mmol/l (1.12-1.32)
--- NOTE | 2019-07-20 11:11 | Emergency Department Note ---
Entered by Frank Ahumada acting as a scribe for Harley Law DO History of Present Illness General Chief complaint: Diarrhea Time Seen by Provider: 07/20/19 09:53 Source: patient and EMS History of Present Illness Provider complaint: Syncope Onset (ago): day(s) (Couple days) Location: head Severity: similar to prior episodes Pain Consistency: + other (Episodic) Relieved By: + none Associated symptoms: + denies other symptoms (Dizziness), + loss of appetite and + other (Diarrhea); no chest pain, no headaches and no shortness of breath The patient is a 79 year old male who presents to the Emergency Room via EMS after having multiple syncopal episodes this morning. The patient states he has not been feeling well for the past couple of days but he has attributed this to his chemotherapy treatment. The patient is currently being treated for prostate cancer and his last chemo session was on 07/13. The patient adds that he has not has any appetite and this morning he started having diarrhea. The patient notes that he has had 3-4 episodes of diarrhea this morning. Per EMS, the patient has a history of syncopal episodes. The patient denies any pain from the fall including any headaches or chest pain. The patient also denies any trouble breathing or dizziness at any time this morning. The patient mentioned that he was diagnosed with prostate cancer 6 months ago and is currently only getting chemo, no radiation. He follows with Dr. Tobin. Per EMS, when they arrived at the patient's house her was in rapid Afib in the 140-170s. He has a history of going into Afib but had an ablation done several years ago. The patient denies any melena or hematochezia. Home Medications Home Medications Medication Instructions Recorded Confirmed Type aspirin [Aspir-81] 81 mg PO QAM 04/01/19 07/20/19 History cyanocobalamin (vitamin B-12) 1,000 mcg PO QAM 04/01/19 07/20/19 History [Vitamin B-12] finasteride 5 mg PO QAM 04/01/19 07/20/19 History gabapentin 300 mg PO QAM 04/01/19 07/20/19 History garlic 500 mg PO QAM 04/01/19 07/20/19 History simvastatin 20 mg PO QPM 09/09/19 12/28/19 History bicalutamide 50 mg tablet 50 mg PO BID #60 tab 04/02/19 07/20/19 Rx fludrocortisone 0.2 mg PO QAM 30 Days #60 tab 06/09/19 07/20/19 Rx prednisone 5 mg PO BID #60 tab 06/09/19 07/20/19 Rx hydrocortisone 5 mg PO UD 07/20/19 07/20/19 History Allergies Allergy/AdvReac Type Severity Reaction Status Date / Time tamsulosin [From Flomax] AdvReac Verified 07/20/19 10:23 Past Med/Surg History Medical History Benign 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 (Acute) CAD (coronary artery disease) DJD of left shoulder Dyslipidemia History of atrial fibrillation Left knee DJD Nocturia (Acute) Osteoarthritis (Acute) Peripheral neuropathy (Acute) Prostate cancer metastatic to intrapelvic lymph node Prostate nodule (Acute) Suicide attempt (Acute) Urge incontinence of urine (Acute) Urinary frequency (Acute) Urinary retention Urinary urgency (Acute) Surgical History History of herniorrhaphy History of intravascular stent placement History of PTCA History of radiofrequency ablation procedure for cardiac arrhythmia History of total knee arthroplasty Status post total shoulder arthroplasty Status post trigger finger release Family History Other Family history non-contributory Social History Preferred Language: Occitan Communication Ability: Effective 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 and A total of 10 systems reviewed and were otherwise negative Physical Exam Vital Signs Vital Signs - 24 hr 07/20/19 09:55 07/20/19 10:02 07/20/19 10:05 Temperature 36.7 C Temperature Source Oral Pulse Rate 120 H 131 H 144 H Pulse Rate from SpO2 Sensor 116 H 144 H Pulse Rhythm Regular Pulse Strength Normal Respiratory Rate 14 20 20 Respiratory Effort / Characteristics Non-Labored Spontaneous Respiratory Depth Normal Blood Pressure 113/68 113/68 Blood Pressure Mean 70 83 Pulse Oximetry 93 94 Oxygen Delivery Method Room Air Room Air Sepsis Recent Fever Within 48 Hours No Sepsis Action Taken by Nursing No Action Required 07/20/19 10:09 07/20/19 10:30 07/20/19 10:42 Temperature Temperature Source Pulse Rate 101 H 108 H Pulse Rate from SpO2 Sensor Pulse Rhythm Pulse Strength Respiratory Rate 24 15 Respiratory Effort / Characteristics Respiratory Depth Blood Pressure 118/71 Blood Pressure Mean 86 Pulse Oximetry Oxygen Delivery Method Room Air Sepsis Recent Fever Within 48 Hours Sepsis Action Taken by Nursing 07/20/19 11:00 07/20/19 11:30 07/20/19 12:00 Temperature Temperature Source Pulse Rate 99 H 93 H 91 H Pulse Rate from SpO2 Sensor Pulse Rhythm Pulse Strength Respiratory Rate 30 H 37 H 19 Respiratory Effort / Characteristics Respiratory Depth Blood Pressure Blood Pressure Mean Pulse Oximetry 92 Oxygen Delivery Method Room Air Sepsis Recent Fever Within 48 Hours Sepsis Action Taken by Nursing 07/20/19 12:30 07/20/19 12:35 07/20/19 13:00 Temperature Temperature Source Pulse Rate 96 H 91 H 94 H Pulse Rate from SpO2 Sensor Pulse Rhythm Pulse Strength Respiratory Rate 19 32 H 38 H Respiratory Effort / Characteristics Respiratory Depth Blood Pressure 114/64 109/64 Blood Pressure Mean 84 73 Pulse Oximetry Oxygen Delivery Method Sepsis Recent Fever Within 48 Hours Sepsis Action Taken by Nursing 07/20/19 13:01 07/20/19 13:11 07/20/19 13:30 Temperature Temperature Source Pulse Rate 93 H 97 H 95 H Pulse Rate from SpO2 Sensor Pulse Rhythm Pulse Strength Respiratory Rate 34 H 26 H 36 H Respiratory Effort / Characteristics Respiratory Depth Blood Pressure 86/54 L Blood Pressure Mean 62 Pulse Oximetry Oxygen Delivery Method Sepsis Recent Fever Within 48 Hours Sepsis Action Taken by Nursing 07/20/19 13:37 Temperature Temperature Source Pulse Rate 91 H Pulse Rate from SpO2 Sensor Pulse Rhythm Pulse Strength Respiratory Rate 35 H Respiratory Effort / Characteristics Respiratory Depth Blood Pressure 101/55 L Blood Pressure Mean 62 Pulse Oximetry Oxygen Delivery Method Sepsis Recent Fever Within 48 Hours Sepsis Action Taken by Nursing GENERAL: The patient is awake and alert. He is somewhat anxious appearing but overall comfortable. EYES: The conjunctivae are clear. The pupils are round and reactive. EARS, NOSE, MOUTH AND THROAT: The nose is without any evidence of any deformity. Mucous membranes are dry. NECK: The neck is nontender and supple. RESPIRATORY: Diminished breath sounds are noted throughout. There are rales at both bases. CARDIOVASCULAR: Tachycardic and irregular rhythm was noted to auscultation. There is no definite murmur. GASTROINTESTINAL: The abdomen is soft. Abdomen is nontender. MUSCULOSKELETAL/EXTREMITIES: There is no evidence of gross deformity full range of motion is noted in the hips and shoulders. SKIN: There is no obvious evidence of any rash. Skin was pale and dry. Trace pedal edema was noted bilaterally. NEUROLOGIC: Patient is awake alert and oriented x3. Course Course 0956: Past medical records reviewed. The patient was evaluated in room B09, and a complete history and physical examination were performed. 1232: I reevaluated the patient and he is resting in bed. I updated him on the test results and we discussed the treatment plan, which he is agreeable to. I spoke to Dr. Felipe Alegria [facility] Hospitalist about the patient's case and he agreed to accept the patient for further evaluation. Consultations Consultation #1: I spoke to Dr. Felipe Alegria [facility] Hospitalist about the patient's case and he agreed to accept the patient for further evaluation. Time: 12:32 Administered Medications Sodium Chloride (Nss 1000ml) 1,000 mls @ 125 mls/hr IV .Q8H [facility] Stop: 08/19/19 14:47 Last Infusion: 07/20/19 16:05 Dose: 0 mls/hr Documented by: [id number] Admin: 07/20/19 16:05 Dose: 125 mls/hr Documented by: [id number] Vancomycin HCl 2,000 mg/ (Sodium Chloride) 540 mls @ 200 mls/hr IV 1600 [facility]GIE Stop: 07/20/19 18:41 Last Admin: 07/20/19 15:59 Dose: 200 mls/hr Documented by: [id number] Piperacillin Sod/Tazobactam (Sod 3.375 gm/ Dextrose) 115 mls @ 28.75 mls/hr IV Q8H [facility]; Protocol Stop: 07/27/19 15:59 Last Admin: 07/20/19 15:59 Dose: 28.8 mls/hr Documented by: [id number] Discontinued Medications Sodium Chloride (Nss 1000ml) 500 mls @ 999 mls/hr IV .Q31M ONE Stop: 07/20/19 10:32 Last Infusion: 07/20/19 11:14 Dose: 0 mls/hr Documented by: [id number] Admin: 07/20/19 10:06 Dose: 999 mls/hr Documented by: [id number] Piperacillin Sod/Tazobactam Sod (Zosyn) 4.5 gm in 120 mls @ 240 mls/hr IV NOW ONE Stop: 07/20/19 11:48 Last Infusion: 07/20/19 13:30 Dose: 0 mls/hr Documented by: [id number] Admin: 07/20/19 11:43 Dose: 240 mls/hr Documented by: [id number] Medical Decision Making Differential Diagnosis Differential diagnosis includes etiologies such as vasovagal event, infection, hypoglycemia, electrolyte abnormalities, cardiac sources, intracerebral event, toxicologic, neurologic, as well as others were entertained. Medical Records Attestation: I reviewed the patient's medical records. Home Medications Current Medication List: was personally reviewed by me Laboratory Data Attestation: I reviewed the patient's lab results. Result diagrams: 07/20/19 10:58 07/20/19 10:58 Lab Results 07/20/19 07/20/19 07/20/19 Range/Units 10:44 10:58 10:58 WBC 4.61 L (4.8-10.8) K/uL RBC 3.54 L (4.7-6.1) M/uL Hgb 10.8 L (14.0-18.0) g/dL POC Hgb 10.5 L (14.0-18.0) g/dl Hct 32.2 L (42-52) % POC Hct 31 L (42-52) % MCV 91.0 (80-100) fL MCH 30.5 (25-34) pg MCHC 33.5 (32-36) g/dL RDW Std Deviation 61.1 H (36.4-46.3) fL RDW Coeff of Emilee 18.3 H (11.5-14.5) % Plt Count 209 (130-400) K/uL MPV 9.9 (7.4-10.4) fL Immature Gran % (Auto) 0.4 % Neut % (Auto) 69.3 % Lymph % (Auto) 8.2 % Tucker % (Auto) 22.1 % Eos % (Auto) 0.0 % Baso % (Auto) 0.0 % Immature Gran # (Auto) 0.02 (0.00-0.02) K/uL Neut # (Auto) 3.19 (1.4-6.5) K/uL Lymph # (Auto) 0.38 L (1.2-3.4) K/uL Tucker # (Auto) 1.02 H (0.11-0.59) K/uL Eos # (Auto) 0.00 (0-0.5) K/uL Baso # (Auto) 0.00 (0-0.2) K/uL Absolute Nucleated RBC 0.03 H (0-0) K/uL Nucleated RBC % (auto) 0.6 % Toxic Granulation 2+ Ovalocytes 1+ ESR > 90 H (0-14) mm/hr PT (9.0-12.0) Seconds INR (0.9-1.1) APTT (21.0-31.0) Seconds PTT Ratio POC Sodium 134 L (135-144) mEq/L Sodium (136-145) mmol/L POC Potassium 4.0 (3.3-5.0) mEq/L Potassium (3.5-5.1) mmol/L POC Chloride 102 (101-112) mEq/L Chloride (98-107) mmol/L Carbon Dioxide (21-32) mmol/L POC Total CO2 24 (24-31) mEq/l Anion Gap (3-11) POC Anion Gap 13.0 L (16-25) mmol/L POC BUN 28 H (7-18) mg/dl BUN (7-18) mg/dl Creatinine (0.6-1.4) mg/dl POC Creatinine 1.1 (0.6-1.3) mg/dl Est Cr Clr Drug Dosing ml/min Est GFR ( Amer) Est GFR (Non-Af Amer) BUN/Creatinine Ratio (10-20) Glucose (70-99) mg/dl POC Glucose (other) 120 H (70-99) mg/dl Lactate (0.4-2.0) mmol/L Calcium (8.5-10.1) mg/dl POC Ioniz Calcium Scarlett 0.98 L (1.12-1.32) mmol/l Magnesium (1.8-2.4) mg/dl Total Bilirubin (0.2-1) mg/dl AST (15-37) U/L ALT (12-78) U/L Alkaline Phosphatase (45-117) U/L Troponin I (0-0.045) ng/ml C-Reactive Protein (0-0.29) mg/dl Total Protein (6.4-8.2) gm/dl Albumin (3.4-5.0) gm/dl Globulin (2.5-4.0) gm/dl Albumin/Globulin Ratio (0.9-2) Procalcitonin (0-0.5) ng/ml Random Cortisol mcg/dl 07/20/19 07/20/19 07/20/19 Range/Units 10:58 10:58 10:58 WBC (4.8-10.8) K/uL RBC (4.7-6.1) M/uL Hgb (14.0-18.0) g/dL POC Hgb (14.0-18.0) g/dl Hct (42-52) % POC Hct (42-52) % MCV (80-100) fL MCH (25-34) pg MCHC (32-36) g/dL RDW Std Deviation (36.4-46.3) fL RDW Coeff of Emilee (11.5-14.5) % Plt Count (130-400) K/uL MPV (7.4-10.4) fL Immature Gran % (Auto) % Neut % (Auto) % Lymph % (Auto) % Tucker % (Auto) % Eos % (Auto) % Baso % (Auto) % Immature Gran # (Auto) (0.00-0.02) K/uL Neut # (Auto) (1.4-6.5) K/uL Lymph # (Auto) (1.2-3.4) K/uL Tucker # (Auto) (0.11-0.59) K/uL Eos # (Auto) (0-0.5) K/uL Baso # (Auto) (0-0.2) K/uL Absolute Nucleated RBC (0-0) K/uL Nucleated RBC % (auto) % Toxic Granulation Ovalocytes ESR (0-14) mm/hr PT 11.3 (9.0-12.0) Seconds INR 1.1 (0.9-1.1) APTT 33.3 H (21.0-31.0) Seconds PTT Ratio 1.2 POC Sodium (135-144) mEq/L Sodium 136 (136-145) mmol/L POC Potassium (3.3-5.0) mEq/L Potassium 4.1 (3.5-5.1) mmol/L POC Chloride (101-112) mEq/L Chloride 103 (98-107) mmol/L Carbon Dioxide 26 (21-32) mmol/L POC Total CO2 (24-31) mEq/l Anion Gap 7.0 (3-11) POC Anion Gap (16-25) mmol/L POC BUN (7-18) mg/dl BUN 31 H (7-18) mg/dl Creatinine 1.14 (0.6-1.4) mg/dl POC Creatinine (0.6-1.3) mg/dl Est Cr Clr Drug Dosing 56.0 ml/min Est GFR ( Amer) 71.5 Est GFR (Non-Af Amer) 61.7 BUN/Creatinine Ratio 27.4 H (10-20) Glucose 116 H (70-99) mg/dl POC Glucose (other) (70-99) mg/dl Lactate 1.9 (0.4-2.0) mmol/L Calcium 8.6 (8.5-10.1) mg/dl POC Ioniz Calcium Scarlett (1.12-1.32) mmol/l Magnesium 2.1 (1.8-2.4) mg/dl Total Bilirubin 1.1 H (0.2-1) mg/dl AST 17 (15-37) U/L ALT 19 (12-78) U/L Alkaline Phosphatase 92 (45-117) U/L Troponin I < 0.015 (0-0.045) ng/ml C-Reactive Protein 22.50 H (0-0.29) mg/dl Total Protein 6.5 (6.4-8.2) gm/dl Albumin 2.5 L (3.4-5.0) gm/dl Globulin 4.0 (2.5-4.0) gm/dl Albumin/Globulin Ratio 0.6 L (0.9-2) Procalcitonin (0-0.5) ng/ml Random Cortisol mcg/dl 07/20/19 07/20/19 Range/Units 10:58 10:58 WBC (4.8-10.8) K/uL RBC (4.7-6.1) M/uL Hgb (14.0-18.0) g/dL POC Hgb (14.0-18.0) g/dl Hct (42-52) % POC Hct (42-52) % MCV (80-100) fL MCH (25-34) pg MCHC (32-36) g/dL RDW Std Deviation (36.4-46.3) fL RDW Coeff of Emilee (11.5-14.5) % Plt Count (130-400) K/uL MPV (7.4-10.4) fL Immature Gran % (Auto) % Neut % (Auto) % Lymph % (Auto) % Tucker % (Auto) % Eos % (Auto) % Baso % (Auto) % Immature Gran # (Auto) (0.00-0.02) K/uL Neut # (Auto) (1.4-6.5) K/uL Lymph # (Auto) (1.2-3.4) K/uL Tucker # (Auto) (0.11-0.59) K/uL Eos # (Auto) (0-0.5) K/uL Baso # (Auto) (0-0.2) K/uL Absolute Nucleated RBC (0-0) K/uL Nucleated RBC % (auto) % Toxic Granulation Ovalocytes ESR (0-14) mm/hr PT (9.0-12.0) Seconds INR (0.9-1.1) APTT (21.0-31.0) Seconds PTT Ratio POC Sodium (135-144) mEq/L Sodium (136-145) mmol/L POC Potassium (3.3-5.0) mEq/L Potassium (3.5-5.1) mmol/L POC Chloride (101-112) mEq/L Chloride (98-107) mmol/L Carbon Dioxide (21-32) mmol/L POC Total CO2 (24-31) mEq/l Anion Gap (3-11) POC Anion Gap (16-25) mmol/L POC BUN (7-18) mg/dl BUN (7-18) mg/dl Creatinine (0.6-1.4) mg/dl POC Creatinine (0.6-1.3) mg/dl Est Cr Clr Drug Dosing ml/min Est GFR ( Amer) Est GFR (Non-Af Amer) BUN/Creatinine Ratio (10-20) Glucose (70-99) mg/dl POC Glucose (other) (70-99) mg/dl Lactate (0.4-2.0) mmol/L Calcium (8.5-10.1) mg/dl POC Ioniz Calcium Scarlett (1.12-1.32) mmol/l Magnesium (1.8-2.4) mg/dl Total Bilirubin (0.2-1) mg/dl AST (15-37) U/L ALT (12-78) U/L Alkaline Phosphatase (45-117) U/L Troponin I (0-0.045) ng/ml C-Reactive Protein (0-0.29) mg/dl Total Protein (6.4-8.2) gm/dl Albumin (3.4-5.0) gm/dl Globulin (2.5-4.0) gm/dl Albumin/Globulin Ratio (0.9-2) Procalcitonin 2.44 H (0-0.5) ng/ml Random Cortisol 59.12 mcg/dl Imaging Data Radiologist's Impression: Radiology results as stated below per my review and the radiologist's interpretation: XR chest 1V portable CLINICAL HISTORY: Sepsis COMPARISON STUDY: PET/CT April 17, 2019. FINDINGS: Left shoulder arthroplasty is noted. There is no pneumothorax or pleural effusion. Interstitial thickening is noted with asymmetric left lung airspace opacities. Cardiac size is normal. Mediastinal contours are normal. IMPRESSION: Asymmetric interstitial thickening and airspace opacities within the left lung. The findings may reflect pneumonia or asymmetric pulmonary edema. Radiographic follow-up is recommended. ACT 112: Negative or not required by law. Electronically signed by: Luis Rajan M.D. 07/20/2019 10:37 AM ECG Data Attestation: I personally reviewed and interpreted this ECG as follows: Indication: + syncope Rate (beats per minute): 126 Rhythm: + atrial fibrillation ECG ST segments: no ST depression and no ST elevation ECG Findings: no PVCs Comparison ECG Date: from (06/03/19) Change: the following changes noted (Afib has replaced sinus rhythm ) Blood Pressure Blood Pressure Findings: Normal blood pressure Blood Pressure Disposition: further management by hospitalist MDM Narrative The patient is a 79-year-old male who presented to the emergency department for generalized weakness. The patient's had a cough recently. He was hypotensive. The patient was treated with IV fluids. He was also found to have signs of pneumonia on chest x-ray. He was further treated with IV antibiotics. The patient was reevaluated multiple times. He was significantly improved on subsequent reevaluation. I discussed the patient's laboratory and radiographic studies with him and his family members. I also discussed his case with the on- call [facility] hospitalist group. They have agreed to evaluate the patient in the emergency department for further management and disposition. Impression & Plan Pneumonia, Syncope, Hypotension Discharge Plan Visit Data *Final* Discharge Date/Time: 07/20/19 14:14 Chief Complaint: Diarrhea ED Provider: Harley Law Discharge Problem: Pneumonia, Syncope, Hypotension Patient Disposition: Admitted As Inpatient Discharge Instructions Interventions: ED Discharge Assessment Last Done: 07/20/19 14:14 Discharge Problem: Pneumonia Qualifiers: Pneumonia type: due to unspecified organism Laterality: unspecified laterality Lung location: unspecified part of lung Qualified Code(s): J18.9 - Pneumonia, unspecified organism Syncope Qualifiers: Syncope type: unspecified Qualified Code(s): R55 - Syncope and collapse Hypotension Qualifiers: Hypotension type: unspecified hypotension type Qualified Code(s): I95.9 - H ypotension, unspecified The scribe's documentation has been prepared under my direction and personally reviewed by me in its entirety. I confirm that the note above accurately reflects all work, treatment, procedures, and medical decision making performed by me.
[2019-07-20 11:16] LABS: Hematocrit (blood only) 32.2 % (42-52); Hemoglobin 10.8 g/dL (14.0-18.0); Mean Corpuscular Hemoglobin 30.5 pg (25-34); Mean Corpuscular Hgb Conc 33.5 g/dL (32-36); Mean Platelet Volume 9.9 fL (7.4-10.4); Nucleated RBC # (auto) 0.03 K/uL (0-0); Nucleated RBC % (auto) 0.6 %; Platelet Count 209 K/uL (130-400); RDW Coefficient of Variation 18.3 % (11.5-14.5); RDW Standard Deviation 61.1 fL (36.4-46.3); Red Blood Count 3.54 M/uL (4.7-6.1); White Blood Count 4.61 K/uL (4.8-10.8)
[2019-07-20] MEDS ORDERED: PIPERACILLIN/TAZOBACTAM 4.5 GM/120 ML BAG IV ONE (11:19)
[2019-07-20] MEDS ORDERED: PIPERACILL/TAZOBAC CONSULT ACTIVE PRN ×2 (11:19→14:48)
[2019-07-20 11:28] LABS: INR 1.1 (0.9-1.1); Partial Thromboplastin Ratio 1.2; Partial Thromboplastin Time 33.3 Seconds (21.0-31.0); Prothrombin Time 11.3 Seconds (9.0-12.0)
[2019-07-20 11:32] LABS: Alanine Aminotransferase 19 U/L (12-78); Albumin Level 2.5 gm/dl (3.4-5.0); Aspartate Aminotransferase 17 U/L (15-37); BUN Creatinine Ratio 27.4 (10-20); Blood Urea Nitrogen 31 mg/dl (7-18); Calcium 8.6 mg/dl (8.5-10.1); Carbon Dioxide 26 mmol/L (21-32); Chloride 103 mmol/L (98-107); Est GFR (African American) 71.5; Est GFR (Non-African American) 61.7; Glucose 116 mg/dl (70-99); Magnesium 2.1 mg/dl (1.8-2.4); Potassium 4.1 mmol/L (3.5-5.1); Sodium 136 mmol/L (136-145)
[2019-07-20 11:38] LABS: Albumin Globulin Ratio 0.6 (0.9-2); Alkaline Phosphatase 92 U/L (45-117); Bilirubin,Total 1.1 mg/dl (0.2-1); Total Protein 6.5 gm/dl (6.4-8.2); Troponin I < 0.015 ng/ml (0-0.045)
[2019-07-20 11:46] LABS: Immature Granulocytes # (auto) 0.02 K/uL (0.00-0.02); Immature Granulocytes % (auto) 0.4 %; Lymphocytes # (auto) 0.38 K/uL (1.2-3.4); Lymphocytes % (auto) 8.2 %; Monocytes # (auto) 1.02 K/uL (0.11-0.59); Monocytes % (auto) 22.1 %; Neutrophils # (auto) 3.19 K/uL (1.4-6.5); Neutrophils % (auto) 69.3 %; Ovalocytes 1+; Toxic Granulation 2+
--- NOTE | 2019-07-20 13:24 | History & Physical Report ---
Date of Service July 20, 2019 Assessment & Plan (1) Prostate cancer metastatic to intrapelvic lymph node: Patient continues to get chemotherapy with oncology. Has a Granger catheter with a leg bag that was placed approximately 3 weeks ago by urology and will need to be replaced within the next week. Will consider oncology and urology consults depending on course. (2) Pneumonia: Per chest x-ray and elevated procalcitonin, I suspect the patient has pneumonia. Consideration to community-acquired versus hospital-acquired considering patient's recent hospital stay. For this reason we should treat with broad-spectrum antibiotics. Patient was given Zosyn in the emergency room which we will continue, will add vancomycin. Check blood and sputum cultures. Seems to be oxygenating well with nasal cannula at this time. (3) Syncope: This is apparently been a ongoing problem with this patient secondary to orthostatic hypotension. It does get worse when the patient gets sick. We will continue to hydrate the patient with normal saline. Check orthostatics. Will likely need to treat patient's atrial fibrillation as noted below as well. Patient should be considered a fall risk and should only ambulate with assistance while in the hospital. I did discuss with the family that I suspect patient will eventually need acute rehab after discharge but that can be discussed at a later date. Of note, the patient is on chronic prednisone of 5 mg daily. Random cortisol was 59.12. Will discontinue prednisone and start stress dose hydrocortisone IV, monitor orthostatics to see if it makes a difference. (4) Atrial fibrillation: Patient was found to be in atrial fibrillation in the [id number]. He does have a history of previous A. fib ablation and had apparently been stable before this. This seems to have resolved prior to my arrival the patient does have some ectopy is seen on monitor. For now, can hold off on further acute treatment at this point the patient's tachycardia is secondary to acute infection. Check 2D echo. Follow electrolytes. [id number] score is 2 from available information, but I am concerned about starting full dose anti coagulation a patient with frequent falls and syncope. Will defer final decision to cardiology. (5) CAD (coronary artery disease): Patient is on simvastatin and low-dose aspirin, will continue both. History of Present Illness Primary Care Provider: Jaime Parham This is a 79-year-old male with past medical history of prostate cancer under the care of Dr. Tobin, hypertension, CAD, and previous syncope that presents today complaining of weakness and ongoing syncope. Patient is accompanied by multiple family members and are all good historians. Patient was treated here on for syncope due to orthostatic hypotension. At that time the patient was offered acute rehab but refused at that time and was discharged home. The family tells me that the patient seems to have a continued weakness. He typically uses a walker for ambulation. He w as also continuing his chemotherapy and has last treatment on 07/13. More recently, the family tells me that he has had some continuing syncopal episodes in the past few days. They have also noticed decreased appetite along with some mild diarrhea. Patient himself exhibits a loose but nonproductive cough. He denied any chest pain, palpitations, or headache. Family did note that he has had multiple falls although has suffered no significant injury from these. EMS was called for ongoing syncope, at that time they found the patient was in rapid atrial fibrillation into the 140s. At time my evaluation, the patient's heart rate is down into the 90s and appears to be sinus with frequent PVCs. However, blood pressure remains in the low 80s. Patient does appear to be weak but is in no cardiopulmonary distress. Family is concerned about eventual discharge back home as they feel he is likely not strong enough to be independent with . Allergies Allergy/AdvReac Type Severity Reaction Status Date / Time tamsulosin [From Flomax] AdvReac Verified 07/20/19 10:23 Home Medications Home Medications Medication Instructions Recorded Confirmed Type aspirin [Aspir-81] 81 mg PO QAM 04/01/19 07/20/19 History cyanocobalamin (vitamin B-12) 1,000 mcg PO QAM 04/01/19 07/20/19 History [Vitamin B-12] finasteride 5 mg PO QAM 04/01/19 07/20/19 History gabapentin 300 mg PO QAM 04/01/19 07/20/19 History garlic 500 mg PO QAM 04/01/19 07/20/19 History simvastatin 20 mg PO QPM 04/01/19 07/20/19 History bicalutamide 50 mg tablet 50 mg PO BID #60 tab 04/02/19 07/20/19 Rx fludrocortisone 0.2 mg PO QAM 30 Days #60 tab 06/09/19 07/20/19 Rx prednisone 5 mg PO BID #60 tab 06/09/19 07/20/19 Rx hydrocortisone 5 mg PO UD 07/20/19 07/20/19 History Past Med/Surg History Medical History Benign 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 (Acute) CAD (coronary artery disease) DJD of left shoulder Dyslipidemia History of atrial fibrillation Left knee DJD Nocturia (Acute) Osteoarthritis (Acute) Peripheral neuropathy (Acute) Prostate cancer metastatic to intrapelvic lymph node Prostate nodule (Acute) Suicide attempt (Acute) Urge incontinence of urine (Acute) Urinary frequency (Acute) Urinary retention Urinary urgency (Acute) Surgical History History of herniorrhaphy History of intravascular stent placement History of PTCA History of radiofrequency ablation procedure for cardiac arrhythmia History of total knee arthroplasty Status post total shoulder arthroplasty Status post trigger finger release Family History Other Family history non-contributory Social History Preferred Language: Polish Communication Ability: Effective 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 Beliefs That Will Affect Care: None Current Living Situation: Spouse Feels Safe at Home: Yes Smoking Status: Never smoker Hx Alcohol Use: No Hx Substance Use: No Review of Systems Constitutional: + chills, + weakness and + anorexia; no fever Ear, Nose, Mouth, Throat: as per Subjective / HPI Respiratory: + cough; no change in sputum, no hemoptysis and no wheezing Cardiovascular: + lightheadedness; no chest pain, no orthopnea, no palpitations, no edema and no calf pain Gastrointestinal: + change in stools and + diarrhea/loose stools; no abdominal pain, no heartburn, no nausea, no vomiting and no constipation Genitourinary: no dysuria, no difficulty urinating and no urinary frequency Musculoskeletal: as per Subjective / HPI Integumentary: no rash Neurologic: + unsteadiness, + generalized weakness and + syncope; no headache(s) Psychiatric: no behavioral changes Physical Exam Constitutional: + frail appearing; no acute distress and no altered mental status ENMT: Mouth: + dry oral mucous membranes Neck: trachea midline, no thyromegaly Respiratory: normal respiratory effort Auscultation: + diminished lung sounds, + crackles and + rales (Best heard at the left base); no wheezes Cardiovascular: Rate/Rhythm: regular rate and + irregularly irregular Heart Sounds: normal S1 and normal S2; no murmur Gastrointestinal (Abdomen): Percussion/Palpation: abdomen soft; abdomen nontender, no guarding, abdomen not rigid and no hepatosplenomegaly Musculoskeletal: no cyanosis or clubbing, extremities motor strength 5/5 Skin: no rashes, warm and dry Neurologic: PERRL, EOMI, accommodation nl, no face palsy, no dysarthria Genitourinary: Granger catheter with a leg bag, concentrated yellow urine without sediment Results & Data Vital Signs (Past 12 Hours) Vital Signs Temp Pulse Resp BP Pulse Ox 07/20/19 12:30 96 H 19 07/20/19 12:00 91 H 19 07/20/19 11:30 93 H 37 H 92 07/20/19 11:00 99 H 30 H 07/20/19 10:42 108 H 15 118/71 07/20/19 10:30 101 H 24 07/20/19 10:05 144 H 20 94 07/20/19 10:02 36.7 C 131 H 20 113/68 93 07/20/19 09:55 120 H 14 113/68 Laboratory Results White count 4.61, hemoglobin 10.8 with hematocrit of 32.2. INR is 1.1. Sodium is 134. BUN is 31 creatinine is 1.14. Glucose is 116. Lactate was 1.9. Cardiac enzymes are nondetectable. Procalcitonin is 2.44. Random cortisol is 59.12. Diagnostic Findings XR chest 1V portable CLINICAL HISTORY: Sepsis COMPARISON STUDY: PET/CT April 17, 2019. FINDINGS: Left shoulder arthroplasty is noted. There is no pneumothorax or pleural effusion. Interstitial thickening is noted with asymmetric left lung airspace opacities. Cardiac size is normal. Mediastinal contours are normal. IMPRESSION: Asymmetric interstitial thickening and airspace opacities within the left lung. The findings may reflect pneumonia or asymmetric pulmonary edema. Radiographic follow-up is recommended. PG Care Time/CCT Total # of Minutes Spent Total Time Spent with Patient: Total time spent is greater than 50% in coordination of care (as documented) at patient's floor/unit and/or counseling patient: (1) Syncope Syncope type: unspecified Qualified Code(s): R55 - Syncope and collapse
[2019-07-20] MEDS ORDERED: VANCOMYCIN HCL 1,000 MG/270 ML BAG IV STA (14:48)
[2019-07-20] MEDS ORDERED: ONDANSETRON INJ 2 MG/ML 2 ML VIAL IV PRN (14:48)
[2019-07-20] MEDS ORDERED: VANCOMYCIN CONSULT ACTIVE PRN (14:48)
[2019-07-20] MEDS ORDERED: HYDROCORTISONE SOD SUCCINATE 100 MG/2 ML VIAL IV SCH (14:48)
[2019-07-20] MEDS ORDERED: ACETAMINOPHEN 325 MG TAB PO PRN (14:48)
[2019-07-20] MEDS ORDERED: PIPERACILLIN/TAZOBACTAM 3.375 GM/115 ML BAG IV SCH (14:48)
--- NOTE | 2019-07-20 15:33 | Pharmacy Report ---
Pharmacy Abx Initial Consult - Date of Service July 20, 2019 - Pharmacy Dosing Scope Date of Consult: 07/20/19 Consultation requested by: Dr. Wang Pharmacy is consulted to initiate VANCOMYCIN/ZOSYN IV dosing therapy, order appropriate labs and adjust drug dose/frequency. - Subjective The patient is a 79 year old M admitted on 07/20/19 13:50. - Objective Height: 5 ft 10 in Weight: 80.9 kg Vital Signs (Past 12hrs): Vital Signs Temp Pulse Resp BP Pulse Ox 07/20/19 14:01 91 H 33 H 07/20/19 14:00 90 36 H 110/72 07/20/19 13:37 91 H 35 H 101/55 L 07/20/19 13:30 95 H 36 H 07/20/19 13:11 97 H 26 H 86/54 L 07/20/19 13:01 93 H 34 H 07/20/19 13:00 94 H 38 H 109/64 07/20/19 12:35 91 H 32 H 114/64 07/20/19 12:30 96 H 19 07/20/19 12:00 91 H 19 07/20/19 11:30 93 H 37 H 92 07/20/19 11:00 99 H 30 H 07/20/19 10:42 108 H 15 118/71 07/20/19 10:30 101 H 24 07/20/19 10:05 144 H 20 94 07/20/19 10:02 36.7 C 131 H 20 113/68 93 07/20/19 09:55 120 H 14 113/68 Lab Results (24hrs): Laboratory Tests (24 Hours) 07/20/19 07/20/19 07/20/19 10:58 10:58 10:58 WBC Neut # (Auto) ESR > 90 H Creatinine 1.14 Est Cr Clr Drug Dosing 56.0 C-Reactive Protein 22.50 H Procalcitonin 2.44 H 07/20/19 10:58 WBC 4.61 L Neut # (Auto) 3.19 ESR Creatinine Est Cr Clr Drug Dosing C-Reactive Protein Procalcitonin Micro Results: 07/20/19 10:58 Aerobic Blood Culture - Pending Blood Anaerobic Blood Culture - Pending 07/20/19 10:42 Aerobic Blood Culture - Pending Blood Anaerobic Blood Culture - Pending - Risk Factors for Resistance * Hospitalization for 48 hours or more within the past 90 days * Immunocompromised, Metastatic prostate CA (on chronic steroid therapy, chemotherapy, immunomodulators) - Assessment & Plan Assessment 79 year old M with metastatic prostate CA, admitted with pneumonia, ordered VANCOMYCIN and ZOSYN. Plan Vancomycin IV * Estimated PK Parameters: Vd 0.7 L/kg, Van 0.051 hr-1, t1/2 ~14 hr * Loading dose: 2000mg (25 mg/kg) * Maintenance dose: 1250mg IV ( ~15 mg/kg) every 14 hours * Goal trough level for PNEUMONIA : 15 to 20 mcg/mL * Trough level ordered for 07/22/19 @ 1000. Piperacillin/tazobactam * 4.5g bolus administered over 30 minutes, then 3.375g IV extended infusion every 8 hours for CrCl greater than 20 mL/min. Pharmacy will continue to follow and will adjust dose/frequency as necessary. Thank you.
[2019-07-20] MEDS: PIPERACILLIN/TAZOBACTAM 3.375 GM in DEXTROSE 5% 100 ML IV SCH ×2 (15:59→23:35)
[2019-07-20] MEDS ORDERED: VANCOMYCIN HCL 2,000 MG in SODIUM CHLORIDE 0.9% 500 ML IV SCH (16:00)
[2019-07-20] MEDS: SODIUM CHLORIDE 0.9% 1000ML 1,000 ML IV SCH (16:05)
[2019-07-20] MEDS: HYDROCORTISONE SOD 100 MG in SYRINGE 0 ML IV SCH ×2 (16:45→23:35)
[2019-07-20] MEDS: ENOXAPARIN INJ 40 MG/0.4 ML SYR SQ SCH (16:45)
[2019-07-20] MEDS: BICALUTAMIDE 50 MG TAB PO SCH (20:12)
[2019-07-20] MEDS ORDERED: HYDROCORTISONE 10 MG TAB PO SCH ×3 (21:00)
[2019-07-20] MEDS ORDERED: SIMVASTATIN 20 MG TAB PO SCH (21:00)
[2019-07-20] MEDS ORDERED: COUGH DROP (SUGAR FREE) LOZ 24 LOZ/1 BOX BUCCAL PRN (22:21)
[2019-07-20] MEDS ORDERED: ALBUT/IPRATROP 3MG/0.5MG NEB 3 ML VIAL NEB ONE (22:24)
[2019-07-21] MEDS: SODIUM CHLORIDE 0.9% 1000ML 1,000 ML IV SCH ×2 (02:21→11:58)
[2019-07-21] MEDS ORDERED: VANCOMYCIN HCL 1,250 MG in SODIUM CHLORIDE 0.9% 250 ML IV SCH (06:00)
[2019-07-21 06:17] LABS: Hematocrit (blood only) 30.2 % (42-52); Hemoglobin 9.8 g/dL (14.0-18.0); Immature Granulocytes # (auto) 0.04 K/uL (0.00-0.02); Immature Granulocytes % (auto) 0.6 %; Lymphocytes # (auto) 0.53 K/uL (1.2-3.4); Lymphocytes % (auto) 8.1 %; Mean Corpuscular Hemoglobin 29.9 pg (25-34); Mean Corpuscular Hgb Conc 32.5 g/dL (32-36); Mean Corpuscular Volume 92.1 fL (80-100); Mean Platelet Volume 10.2 fL (7.4-10.4); Monocytes # (auto) 0.61 K/uL (0.11-0.59); Monocytes % (auto) 9.3 %; Neutrophils # (auto) 5.35 K/uL (1.4-6.5); Nucleated RBC # (auto) 0.02 K/uL (0-0); Nucleated RBC % (auto) 0.3 %; Platelet Count 198 K/uL (130-400); RDW Coefficient of Variation 18.1 % (11.5-14.5); RDW Standard Deviation 61.2 fL (36.4-46.3); Red Blood Count 3.28 M/uL (4.7-6.1); White Blood Count 6.53 K/uL (4.8-10.8)
[2019-07-21 06:54] LABS: BUN Creatinine Ratio 22.6 (10-20); Calcium 8.1 mg/dl (8.5-10.1); Creatinine Clr Calc Pharmacy 58.6 ml/min; Est GFR (African American) 75.5; Est GFR (Non-African American) 65.1; Potassium 3.9 mmol/L (3.5-5.1)
--- NOTE | 2019-07-21 07:34 | Cardiology Consultation ---
Date of Consultation July 21, 2019 Assessment & Plan (1) Syncope: The cause of his syncope is likely multifactorial. Predominantly I agree it would be orthostatic hypotension, however there may well be a contribution at times of his atrial arrhythmia which he does not feel as well as is frequent premature ventricular beats which can result in decreased cardiac output and could certainly potentiate orthostasis. He is not aware of these arrhythmias and they could be occurring at home. I doubt it is a primary arrhythmia although that could be determined by monitoring. (2) Hypotension: He has well-documented orthostatic hypotension, this is sometimes very difficult to treat and his seems to be a resistant case. I would agree with the use of Florinef, possibly increasing it, and agree with the use of salt. I would try compression stockings as well. (3) Atrial fibrillation: He has a history of atrial fibrillation as well as flutter for which he has had ablation in the past, quite a few years ago. He was under the impression that this is a permanent cure, that is rarely the case and recurrence is the norm. It is not surprising that he has a recurrence, it may be related to his acute presentation but I would not expect that to be the case. I suspect he has episodes of this since he does not feel it in a might be contributing to his syncope and falling. I would try to suppress it, and monitor for recurrence. Ideally he would be on an anticoagulant but that is potentially risky with his falls. Aspirin is not an anticoagulant for stroke prevention and atrial fibrillation. My recommendation therefore would be to use an antiarrhythmic agent to try to suppress the atrial fibrillation and to monitor him for recurrence, I would use an implantable loop recorder. He was little bit hesitant about treating it, feeling that he does not have it very often although since he was not aware of it I am not sure why he thinks that. He did agree to medical therapy, I have not talked to him about long-term monitoring with an implantable loop recorder. (4) Frequent unifocal PVCs: He has very frequent premature ventricular beats and this may be contributing to his hypotension and falling. Frequent premature ventricular beats to decreased cardiac output and in the presence of orthostasis that can certainly potentiate. They appear to be unifocal on telemetry, I do not see a twelve-lead documenting his premature beats this admission, however he did have one in May with one premature ventricular beat which had a right bundle bra nch morphology suggesting that it was from the left ventricle. I am going to repeat his electrocardiogram today, hopefully we can get a better sense for where they are originating. I would like to try to suppress them with medications to see if that helps with his symptoms, we should be able to use the same medication for his atrial arrhythmia. With his history of coronary disease I am going to use Multaq. (5) CAD (coronary artery disease): He has coronary artery disease and by his history has had stent placement. He does not appear to have had a myocardial infarction based on his echocardiogram and his electrocardiogram. As such we could probably use most antiarrhythmic medications, however given the fact that he has coronary disease I would like to use Multaq. I would continue aspirin for now for his coronary artery disease, since we are withholding anticoagulant therapy for now. If we need to use an anticoagulant due to frequent atrial arrhythmias then I would recommend switching to clopidogrel and instituting Eliquis. He does not have symptoms to suggest that progressive coronary disease is related so I do not think we should investigate that at this time. History of Present Illness Reason for Consultation: Atrial fibrillation and flutter, coronary artery disease, PVCs, syncope Attending Physician: Vaughn Cornejo, DO History of Present Illness This is a 79-year-old male with a history of prostate cancer and neutropenia, hypertension and a fairly extensive cardiac history followed in [place]. Per his history he has coronary artery disease for which he had stents placed a number of years ago but has not had difficulty recently, he also has a history of atrial fibrillation and atrial flutter for which he has had ablation performed both in [place] and in [place]. He believes that was 10 or 11 years ago and he feels he has not had recurrence. He seems unaware that he can have recurrences, he is surprised that this was not a permanent fix. He also has frequent premature ventricular beats, he seems somewhat aware of them reporting that historically when he would go for walks he would notice them afterwards but he does not seem aware of them now. He also has had multiple episodes of syncope more recently. He presented on July 20, 2019 with weakness and several syncopal events over several days. He has fallen several times but no significant injury. When EMS arrived at his residence he was noted to be in atrial fibrillation with a heart rate in the 140s, he was in atrial flutter on arrival in the emergency room which resolved at about 10:10 AM after he came into the emergency room. His blood pressure was was reported as being low on presentation and he was complaining of weakness, however review of his vital signs suggest that his blood pressure was not low while he was in the atrial arrhythmia, it is reported as 113/68 prior to termination of the arrhythmia. Of note he was hospitalized from June 03 through June 09, 2019 for evaluation of syncope and hypotension. Ultimately it appeared to be due to adrenal insufficiency and dehydration, he did have significant orthostatic changes and he was discharged on Florinef 0.2 mg daily. He does have a history of peripheral neuropathy and is on gabapentin. At the time of my evaluation this morning he is feeling better, he is supine in bed and is not having any difficulty with lightheadedness or palpitations. He denies recent exertional chest discomfort although I do not think he is as active as he used to be, he reiterates the history above notable for periods of syncope which she has with a feeling of lightheadedness initially and then loss of consciousness, usually while standing, occasionally while sitting, never supine that he recalls. He denies recent palpitations. He seems did not have any awareness of the atrial arrhythmia on presentation or the premature ventricular beats here. Allergies Allergy/AdvReac Type Severity Reaction Status Date / Time tamsulosin [From Flomax] AdvReac Verified 07/20/19 10:23 Home Medications Home Medications Medication Instructions Recorded Confirmed Type aspirin [Aspir-81] 81 mg PO QAM 04/01/19 07/20/19 History cyanocobalamin (vitamin B-12) 1,000 mcg PO QAM 04/01/19 07/20/19 History [Vitamin B-12] finasteride 5 mg PO QAM 04/01/19 07/20/19 History gabapentin 300 mg PO QAM 04/01/19 07/20/19 History garlic 500 mg PO QAM 04/01/19 07/20/19 History simvastatin 20 mg PO QPM 04/01/19 07/20/19 History bicalutamide 50 mg tablet 50 mg PO BID #60 tab 04/02/19 07/20/19 Rx fludrocortisone 0.2 mg PO QAM 30 Days #60 tab 11/17/19 12/28/19 Rx prednisone 5 mg PO BID #60 tab 06/09/19 07/20/19 Rx hydrocortisone 5 mg PO UD 07/20/19 07/20/19 History Patient History Medical History Benign 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 (Acute) CAD (coronary artery disease) DJD of left shoulder Dyslipidemia History of atrial fibrillation Left knee DJD Nocturia (Acute) Osteoarthritis (Acute) Peripheral neuropathy (Acute) Prostate cancer metastatic to intrapelvic lymph node Prostate nodule (Acute) Suicide attempt (Acute) Urge incontinence of urine (Acute) Urinary frequency (Acute) Urinary retention Urinary urgency (Acute) Surgical History History of herniorrhaphy History of intravascular stent placement History of PTCA History of radiofrequency ablation procedure for cardiac arrhythmia History of total knee arthroplasty Status post total shoulder arthroplasty Status post trigger finger release Family History Other Family history non-contributory Social History Preferred Language: Libyan Communication Ability: Effective Anesthesiology Teacher Required: No Beliefs That Will Affect Care: None Current Living Situation: Spouse Other Information That Helps Us Care for You: No Feels Safe at Home: Yes Safety Concerns: Feels Safe At This Time Smoking Status: Never smoker Do You Dip or Chew Tobacco: No ; Hx Alcohol Use: No Hx Substance Use: No Review of Systems Review of Systems: All systems reviewed & are unremarkable except as noted in HPI & below Physical Exam Physical Exam: Constitutional: Alert, cooperative and in no distress. HEENT: Unremarkable Neck: No jugular venous distention, carotid pulses are normal and equal bilaterally without bruits. Pulmonary: Clear to auscultation bilaterally. Cardiac: Regular rhythm with frequent premature beats and no murmur, gallop or rub. Abdomen: Soft, nontender with normal bowel sounds. Extremities: No edema. Distal pulses intact. Neurologic: No focal findings. Gait is steady. Skin: No rash, ecchymoses or petechiae. Results & Data Vital Signs (Past 12 Hours) Vital Signs Temp Pulse Resp BP Pulse Ox 07/21/19 07:01 36.6 C 22 97 07/21/19 03:14 36.6 C 74 16 135/76 92 07/20/19 22:55 36.8 C 101 H 18 137/69 96 07/20/19 22:37 85 16 93 07/20/19 19:56 36.7 C 90 18 125/77 91 Laboratory Results Cardiac Enzymes 07/20/19 Range/Units 10:58 AST 17 (15-37) U/L Troponin I < 0.015 (0-0.045) ng/ml Coagulation 07/20/19 Range/Units 10:58 PT 11.3 (9.0-12.0) Seconds APTT 33.3 H (21.0-31.0) Seconds CBC 07/20/19 07/21/19 Range/Units 10:58 05:27 WBC 4.61 L 6.53 (4.8-10.8) K/uL RBC 3.54 L 3.28 L (4.7-6.1) M/uL Hgb 10.8 L 9.8 L (14.0-18.0) g/dL Hct 32.2 L 30.2 L (42-52) % Plt Count 209 198 (130-400) K/uL Neut # (Auto) 3.19 5.35 (1.4-6.5) K/uL Lymph # (Auto) 0.38 L 0.53 L (1.2-3.4) K/uL Morrow # (Auto) 1.02 H 0.61 H (0.11-0.59) K/uL Eos # (Auto) 0.00 0.00 (0-0.5) K/uL Baso # (Auto) 0.00 0.00 (0-0.2) K/uL Comprehensive Metabolic Panel 07/20/19 07/21/19 Range/Units 10:58 05:27 Sodium 136 137 (136-145) mmol/L Potassium 4.1 3.9 (3.5-5.1) mmol/L Chloride 103 105 (98-107) mmol/L Carbon Dioxide 26 24 (21-32) mmol/L BUN 31 H 25 H (7-18) mg/dl Creatinine 1.14 1.09 (0.6-1.4) mg/dl Glucose 116 H 178 H (70-99) mg/dl Calcium 8.6 8.1 L (8.5-10.1) mg/dl AST 17 (15-37) U/L ALT 19 (12-78) U/L Alkaline Phosphatase 92 (45-117) U/L Total Protein 6.5 (6.4-8.2) gm/dl Albumin 2.5 L (3.4-5.0) gm/dl Intake and Output 07/20/19 07/21/19 07/21/19 22:59 06:59 14:59 Intake Total 1345 / 2080 115 / 2080 Output Total 350 / 900 550 / 900 Balance 995 / 1180 -435 / 1180 Intake: IV 655 / 1390 115 / 1390 Zosyn 3.375 gm In D5 100 ml @ 115 / 230 115 / 230 28.75 mls/hr IV Q8H AMGGIE Rx#: [id number] Nss 1000ML 1,000 ml @ 125 mls/ 0 / 0 0 / 0 hr IV .Q8H MAGIGE Rx#:[id number] Vancomycin HCl 2,000 mg In Nss 540 / 540 500 ml @ 200 mls/hr IV 1600 MAGGIE Rx#:[id number] Oral 690 / 690 Output: Urine Amount (Catheter) 350 / 900 550 / 900 Granger/Indwelling 350 / 900 550 / 900 Other: Weight 80.9 kg 79.6 kg Diagnostic Findings Electrocardiogram: His presenting electrocardiogram appears to be atrial fibrillation at a rate of 126 bpm with no acute changes. I do not see a repeat. His echocardiogram done July 20, 2019 shows normal left ventricular size and function with mild concentric left ventricular hypertrophy. Telemetry: Atrial flutter predominantly, possibly some atrial fibrillation, from arrival until termination at 10:11 AM on July 20, 2019. Since then sinus rhythm with very frequent premature ventricular beats. PG Care Time/CCT Total # of Minutes Spent Total Time Spent with Patient: Total time spent is greater than 50% in coordination of care (as documented) at patient's floor/unit and/or counseling patient: (1) Syncope Syncope type: unspecified Qualified Code(s): R55 - Syncope and collapse (2) Hypotension Hypotension type: unspecified hypotension type Qualified Code(s): I95.9 - Hypotension, unspecified
[2019-07-21] MEDS: PIPERACILLIN/TAZOBACTAM 3.375 GM in DEXTROSE 5% 100 ML IV SCH ×2 (08:21→17:13)
[2019-07-21] MEDS: HYDROCORTISONE SOD 100 MG in SYRINGE 0 ML IV SCH ×2 (08:22→17:14)
[2019-07-21] MEDS: BICALUTAMIDE 50 MG TAB PO SCH (08:25)
[2019-07-21] MEDS ORDERED: FINASTERIDE 5 MG TAB PO SCH (09:00)
[2019-07-21] MEDS ORDERED: CYANOCOBALAMIN 500 MCG TABLET (VITAMIN B-12) PO SCH (09:00)
[2019-07-21] MEDS ORDERED: DRONEDARONE HCL 400 MG TAB PO SCH (09:00)
[2019-07-21] MEDS ORDERED: GABAPENTIN 300 MG CAP PO SCH (09:00)
[2019-07-21] MEDS ORDERED: HYDROCORTISONE 10 MG TAB PO SCH (09:00)
[2019-07-21] MEDS ORDERED: ASPIRIN 81 MG ECTAB PO SCH (09:00)
[2019-07-21] MEDS ORDERED: FLUDROCORTISONE ACETATE 0.1 MG TAB PO SCH (09:00)
[2019-07-21 09:28] LABS: Appearance Urine Cloudy (Clear); Bilirubin Urine Negative (Negative); Blood Urine Trace (Negative); Color Urine Dark Yellow; Epithelial Cell Urine Auto 0-5 /lpf (0-5); Glucose Urine UA Negative (Negative); Ketones Urine Negative (Negative); Leukocyte Esterase Urine 2+ (Negative); Nitrite Urine Positive (Negative); Protein Urine 1+ (Negative); Specific Gravity Urine 1.024 (1.000-1.030); Urobilinogen Urine Negative (Negative); WBC Urine Automated >30 /hpf (0-5); pH Urine 5.5 (4.5-7.5)
[2019-07-21 09:48] LABS: Amorphous Sediment Urine Present (None Prsent); Bacteria Urine Automated 1+ (Negative); RBC Urine Automated 0-4 /hpf (0-4)
[2019-07-21] MEDS ORDERED: POLYETHYLENE (MIRALAX) 17 GM PACK PO SCH (14:00)
[2019-07-21] MEDS: ENOXAPARIN INJ 40 MG/0.4 ML SYR SQ SCH (17:14)
[2019-07-21] MEDS ORDERED: XYLOCAINE 1%/SOD BICARB 20 ML VIAL INFIL ONE (18:28)
--- NOTE | 2019-07-21 18:36 | CT Scan Report ---
CT head/brain wo con CLINICAL HISTORY: 79 years-old Male with Fall/ R/O Bleed. Acute head injury status post fall TECHNIQUE: Multiple axial CT images of the head were obtained without contrast. A dose lowering tech nique was utilized adhering to the principles of ALARA. COMPARISON: Brain MRI 08/18/2010. FINDINGS: 5 mm cortically based hyperdense focus is noted involving the anteromedial right frontal lobe, image 17 series 2. Ill-defined hypodensity is noted along the anterior interpeduncular cistern and falx cer ebri as seen on image 15 series 2 and image 13 series 2 suggestive of hemorrhage. No associated midli ne shift or hydrocephalus. Age-related involutional changes. Patchy white matter hypodensities sugges t chronic microvascular ischemic disease. Cerebral vascular calcifications are noted. No acute territ orial infarct. Cephalization malacia of the lateral right cerebellar hemisphere. Mastoid air cells and middle ear cavities are clear. No acute calvarial fracture. 3.1 x 0.7 cm left f rontal scalp hematoma with laceration. IMPRESSION: 1. 5 mm cortically based hyperdense focus along the anteromedial right frontal lobe is suggestive of acute intracranial hemorrhage, likely a small cortical contusion. Mild adjacent subarachnoid hemorrha ge tracks along the anterior interpeduncular cistern. 2. No midline shift or hydrocephalus. 3. Small left frontal scalp hematoma. No acute calvarial fracture. Findings were discussed with Dr. Vaughn Cornejo on 07/21/2019 at 6:25 PM. ACT 112: Negative or not required by law. The above report was generated using voice recognition software. It may contain grammatical, syntax o r spelling errors. Electronically signed by: Kenton Velez M.D. 07/21/2019 6:35 PM
--- NOTE | 2019-07-21 18:39 | Discharge Summary ---
Date of Service July 21, 2019 Admission HPI Per Admitting Provider This is a 79-year-old male with past medical history of prostate cancer under the care of Dr. Tobin, hypertension, CAD, and previous syncope that presents today complaining of weakness and ongoing syncope. Patient is accompanied by multiple family members and are all good historians. Patient was treated here on for syncope due to orthostatic hypotension. At that time the patient was offered acute rehab but refused at that time and was discharged home. The family tells me that the patient seems to have a continued weakness. He typically uses a walker for ambulation. He was also continuing his chemotherapy and has last treatment on 07/13. More recently, the family tells me that he has had some continuing syncopal episodes in the past few days. They have also noticed decreased appetite along with some mild diarrhea. Patient himself exhibits a loose but nonproductive cough. He denied any chest pain, palpitations, or headache. Family did note that he has had multiple falls although has suffered no significant injury from these. EMS was called for ongoing syncope, at that time they found the patient was in rapid atrial fibrillation into the 140s. At time my evaluation, the patient's heart rate is down into the 90s and appears to be sinus with frequent PVCs. However, blood pressure remains in the low 80s. Patient does appear to be weak but is in no cardiopulmonary distress. Family is concerned about eventual discharge back home as they feel he is likely not strong enough to be independent with . Principal Diagnosis Subdural hematoma from fall Discharge Exam Constitutional WD/WN, vitals as above Eyes PERRL, conjunctivae normal, anicteric sclerae ENMT external ear and nose normal, oropharynx normal Neck trachea midline, no thyromegaly Respiratory normal respiratory effort, lungs clear to auscultation Cardiovascular RRR, no murmur, no edema Gastrointestinal (Abdomen) normal bowel sounds, soft, nontender, no hepatosplenomegaly Musculoskeletal no cyanosis or clubbing, extremities motor strength 5/5 Skin + wound (left scalp laceration, sutured and dressed) Neurologic patellar DTR's 2+ bilat, sensation intact and PERRL, EOMI, accommodation nl, no face palsy, no dysarthria Psychiatric A+Ox3, euthymic affect Lymphatic no cervical or axillary lymphadenopathy Discharge Data Allergies Allergy/AdvReac Type Severity Reaction Status Date / Time tamsulosin [From Flomax] AdvReac Verified 07/20/19 10:23 Consultations 07/20/19 12:36 ED Decision to Admit Stat 07/20/19 14:48 Consult Cardiology Routine Ordered Studies 07/21/19 17:56 CT cervical spine wo con Stat CT head/brain wo con Stat Hospital Course (1) Subdural hematoma: due to fall, see the CT report below IMPRESSION: 1. 5 mm cortically based hyperdense focus along the anteromedial right frontal lobe is suggestive of acute intracranial hemorrhage, likely a small cortical contusion. Mild adjacent subarachnoid hemorrhage tracks along the anterior interpeduncular cistern. 2. No midline shift or hydrocephalus. 3. Small left frontal scalp hematoma. No acute calvarial fracture. had Lovenox 40mg SC at 1700 on 07/21 will transfer to surgical/trauma ICU at [facility] (2) Subarachnoid bleed: see above (3) Prostate cancer metastatic to intrapelvic lymph node: has chronic hanna due to retention in the past month on Casodex and Lupron most recent PSA was < 4, has been showing good response had chemotherapy in May which caused pancytopenia evidence of disease in lymph nodes as well as bones (4) Pneumonia: Left lower lobe opacity afebrile, vitals stable, on Zosyn and Vanco would treat for 5 days c/o cough, difficulty getting sputum up (5) Syncope: ongoing for several weeks, intermittent syncope attributed to orthostatic hypotenstion 07/21 had fall after having bowel movement, likely vagal with orthostasis his BP is normal to elevated when laying down no atrial pauses or tachyarrhythmias seen on the monitor when he fell has been on Florinef 0.2mg for a few weeks, trying to eat a lot of salt and stay well hydrated currently on Hydrocortisone 50mg q8 for stress, continue (6) Atrial fibrillation: Patient was found to be in atrial fibrillation in the [id number]. He does have a history of previous A. fib ablation and had apparently been stable before this. cardiology recommends using Multaq to keep him out of atrial fibrillation, on 400mg BID, this is new medication he has been in sinus rhythm all day with occasional PVCs on the monitor NOT on therapeutic dose anticoagulation due to falls received Lovenox at 5pm on 12/29 but it was only 40mg for DVT prophylaxis (7) CAD (coronary artery disease): Patient is on simvastatin and low-dose aspirin hold aspirin on transfer Total Time Total Time Spent Total Time Spent (In Minutes): 60 minutes Discharge Plan Discharge Items Patient Disposition: Transfer Acute Care Hospital Reason For Visit: SNYCOPE,AF,PNA Discharge Diagnosis: Intracranial hematoma due to fall Syncope Pneumonia Metastatic prostate cancer Atrial fibrillation Condition on Discharge: Fair Goals: see neurosurgeon at [facility] Activity: As commented below Activity Comment: per discharge from [facility] Non-emergency contact: Primary Care Provider Call non-emergency contact if: you have any medication questions Follow-up/Referrals: Jaime Parham [Primary Care Provider] - Diet: Regular Addtl Attending Provider Instructions: transfer to [facility] Pending Studies at Discharge: No Stand-Alone Forms: Cancer Genetics Skilled Items Patient informed of condition?: Yes DNR: No Discharge Level of Care: Other Communicable Disease: No Discharge Prognosis: Stable Lines: Peripheral IV Urinary Catheter: Yes Medications and DC Order Prescriptions: Continued bicalutamide [Casodex] 50 mg tablet 50 mg PO BID Qty: 60 RF: 3 cyanocobalamin (vitamin B-12) [Vitamin B-12] 1,000 mcg Tablet 1,000 mcg PO QAM RF: 0 aspirin [Aspir-81] 81 mg Tablet,Delayed Release (Dr/Ec) 81 mg PO QAM RF: 0 simvastatin 20 mg tablet 20 mg PO QPM RF: 0 gabapentin 300 mg capsule 300 mg PO QAM RF: 0 finasteride 5 mg tablet 5 mg PO QAM RF: 0 garlic Tablet 500 mg PO QAM RF: 0 fludrocortisone 0.1 mg Tablet 0.2 mg PO QAM 30 Days Qty: 60 RF: 1 prednisone 5 mg Tablet 5 mg PO BID Qty: 60 RF: 1 hydrocortisone 5 mg tablet 5 mg PO UD RF: 0 Discharge Orders: Discharge Order (Routine); Ordered 07/21/19 Ordered By: Vaughn Cornejo Admission Data Admit Date/Time: 07/20/19 13:50 Attending Provider: Vaughn Cornejo Admit Provider: Patrice Wang Primary Care Provider: Jaime Parham Other Providers: Patrice Wang ; Harley Stephenson
--- NOTE | 2019-07-21 18:42 | CT Scan Report ---
CT cervical spine wo con CT DOSE: 1364.33 mGy.cm CLINICAL HISTORY: 79 years-old Male with Fall; R/O Fx. Acute neck injury status post fall. History o f metastatic prostate cancer. COMPARISON: CT head of same day, bone scan 05/24/2019. TECHNIQUE: Multiple axial CT images of the cervical spine were obtained without contrast. A dose low ering technique was utilized adhering to the principles of ALARA. FINDINGS: Sclerotic metastasis noted within the left occipital condyle, C2 and C4 vertebral bodies, left first and third ribs. Moderate disc space narrowing at C6-C7 with mostly mild multilevel spondylitic spurri ng. Posterior disc osteophyte complex at C6-C7. Moderate multilevel facet arthrosis, right greater th an left. No acute cervical spine fracture or subluxation identified. Evaluation of the central canal and neuroforamina is better assessed by MRI. Multilevel foraminal narrowing is noted. No high-grade c entral canal stenosis identified. No prevertebral soft tissue swelling. The lung apices are clear with mild biapical pleural-parenchyma l scarring. Calcified plaque of the carotid bulbs and proximal internal carotid arteries. IMPRESSION: 1. No acute cervical spine fracture or subluxation. 2. Multifocal osteoblastic metastatic disease redemonstrated. ACT 112: Negative or not required by law. The above report was generated using voice recognition software. It may contain grammatical, syntax o r spelling errors. Electronically signed by: Kenton Velez M.D. 07/21/2019 6:41 PM
--- NOTE | 2019-07-21 18:55 | Emergency Department Note ---
ED Visit Note I was asked to perform a repair of this patient's facial laceration by the patient's attending physician, Dr. Cornejo. Patient is admitted as an inpatient here and reportedly fell, sustaining a head injury. Please see the patient's attending physician's note for any other details regarding the injury. Laceration repair was performed in the emergency department. Examination reveals a 2.8 cm superficial linear laceration to the left frontal scalp. Verbal consent was obtained to perform the procedure. Using sterile technique the wound was cleaned with Betadine. The area was sterilely draped. 2 ml of 1% buffered lidocaine was used to anesthetize the laceration. Once the patient was anesthetized, the wound was copiously irrigated with sterile saline. The laceration was repaired using 8 simple interrupted 6-0 nylon sutures with the wound edges being well approximated. The patient tolerated the procedure well. Hemostasis was achieved. : Pneumonia Qualifiers: Pneumonia type: due to unspecified organism Laterality: unspecified laterality Lung location: unspecified part of lung Qualified Code(s): J18.9 - Pneumonia, unspecified organism Syncope Qualifiers: Syncope type: unspecified Qualified Code(s): R55 - Syncope and collapse Hypotension Qualifiers: Hypotension type: unspecified hypotension type Qualified Code(s): I95.9 - Hypotension, unspecified
[2019-07-22] MEDS ORDERED: VANCOMYCIN TROUGH ONE (09:30)
--- NOTE | 2019-07-24 13:22 | Coding Query ---
PRESENT ON ADMISSION QUERY To promote full compliance with coding requirements relating to pateint care, physician participation is requested in all cases of stile ripsaw operator uncertainty. Please assist us with the question(s) below: Please place an X within the parenthesis (x). The following diagnosis(es) listed in this patient's medical record require physician assistance to determine if they were present on admission (POA) or not. Please advise for each diagnosis whether it was present on admission, not present on admission, or if it was clinically undetermined. 1. Subdural Hematoma, documented on the discharge summary ( ) Present On Admission (x ) Not Present On Admission ( ) Clinically Undetermined Thank you! Shayla Valdez *Definition of the present on admission (POA)-Present on admission is defined as present at the time the order for inpatient admission occurs. Conditions that develop during an outpatient encounter prior to a written order for inpatient admission (including emergency department, observation, or outpatient surgery) are considered present on admission. MTDD
== END 2019-07-21 20:20 | disposition short-term general hospital (02) | DRG 312 ==
LOC: ED 09:47 → 2E 13:50 → SUATTDRO 13:50 → 2E 14:14

== ENCOUNTER 2019-09-04 21:19 | Inpatient (IN) ==
[2019-09-04] MEDS ORDERED: ALBUTEROL 0.083% NEBU SOLN 3 ML VIAL NEB STA (21:37)
[2019-09-04] MEDS ORDERED: SODIUM CHLORIDE 0.9% 1000ML 1,000 ML IV ONE ×2 (21:37→23:11)
[2019-09-04] MEDS ORDERED: ACETAMINOPHEN 1,000 MG/100 ML VIAL IV STA (21:48)
[2019-09-04 21:58] LABS: Appearance Urine Cloudy (Clear); Bacteria Urine Automated Negative (Negative); Blood Urine Negative (Negative); Color Urine Orange; Epithelial Cell Urine Auto 20-30 /lpf (0-5); Glucose Urine UA Negative (Negative); Ketones Urine Trace (Negative); Leukocyte Esterase Urine 1+ (Negative); Nitrite Urine Positive (Negative); Protein Urine 2+ (Negative); RBC Urine Automated 0-4 /hpf (0-4); Specific Gravity Urine 1.026 (1.000-1.030); Urobilinogen Urine Negative (Negative)
[2019-09-04 22:00] LABS: Bilirubin Urine 1+ (Negative)
[2019-09-04 22:02] LABS: Ictotest Urine Positive (Negative)
[2019-09-04 22:28] LABS: Influenza A virus by PCR Neg for Influ A (Neg); Influenza B virus by PCR Neg for Influ B (Neg)
[2019-09-04 22:48] LABS: Basophils # (auto) 0.02 K/uL (0-0.2); Basophils % (auto) 0.1 %; Eosinophils # (auto) 0.01 K/uL (0-0.5); Hematocrit (blood only) 37.1 % (42-52); Hemoglobin 12.4 g/dL (14.0-18.0); Immature Granulocytes # (auto) 0.16 K/uL (0.00-0.02); Immature Granulocytes % (auto) 0.7 %; Lymphocytes # (auto) 1.87 K/uL (1.2-3.4); Lymphocytes % (auto) 8.1 %; Mean Corpuscular Hgb Conc 33.4 g/dL (32-36); Mean Corpuscular Volume 95.6 fL (80-100); Mean Platelet Volume 9.7 fL (7.4-10.4); Monocytes # (auto) 1.96 K/uL (0.11-0.59); Monocytes % (auto) 8.5 %; Neutrophils # (auto) 19.05 K/uL (1.4-6.5); Neutrophils % (auto) 82.6 %; Platelet Count 366 K/uL (130-400); RDW Coefficient of Variation 17.7 % (11.5-14.5); RDW Standard Deviation 61.6 fL (36.4-46.3); Red Blood Count 3.88 M/uL (4.7-6.1); White Blood Count 23.07 K/uL (4.8-10.8)
[2019-09-04 22:57] LABS: INR 1.2 (0.9-1.1); Partial Thromboplastin Time 28.1 Seconds (21.0-31.0); Prothrombin Time 12.3 Seconds (9.0-12.0)
[2019-09-04 23:08] LABS: Alanine Aminotransferase 17 U/L (12-78); Albumin Level 2.4 gm/dl (3.4-5.0); Aspartate Aminotransferase 15 U/L (15-37); BUN Creatinine Ratio 28.2 (10-20); Blood Urea Nitrogen 39 mg/dl (7-18); Calcium 8.9 mg/dl (8.5-10.1); Carbon Dioxide 23 mmol/L (21-32); Chloride 101 mmol/L (98-107); Creatinine Clr Calc Pharmacy 47.7 ml/min; Est GFR (African American) 56.3; Est GFR (Non-African American) 48.5; Glucose 117 mg/dl (70-99); Magnesium 2.2 mg/dl (1.8-2.4); Potassium 4.2 mmol/L (3.5-5.1); Sodium 136 mmol/L (136-145)
[2019-09-04] MEDS ORDERED: SODIUM CHLORIDE 0.9% 1000ML 250 ML IV ONE (23:11)
[2019-09-04] MEDS ORDERED: DAPTOmycin 475 MG in SYRINGE 0 ML IV ONE (23:11)
[2019-09-04] MEDS ORDERED: PIPERACILLIN/TAZOBACTAM 4.5 GM/120 ML BAG IV ONE (23:11)
[2019-09-04] MEDS ORDERED: PIPERACILL/TAZOBAC CONSULT ACTIVE PRN (23:11)
[2019-09-04 23:21] LABS: Albumin Globulin Ratio 0.6 (0.9-2); Alkaline Phosphatase 92 U/L (45-117); Bilirubin,Total 0.9 mg/dl (0.2-1); Creatine Kinase 41 U/L (39-308); Total Protein 6.4 gm/dl (6.4-8.2); Troponin I 0.109 ng/ml (0-0.045)
[2019-09-04 23:38] LABS: Creatine Kinase MB < 1.0 ng/ml (0.5-3.6)
[2019-09-05] MEDS ORDERED: HYDROCORTISONE SOD SUCCINATE 100 MG/2 ML VIAL IV STA (00:23)
--- NOTE | 2019-09-05 00:47 | History & Physical Report ---
Date of Service September 05, 2019 Assessment & Plan (1) Sepsis: Axel is a 79-year-old male with a past medical history of CAD with PCI, prostate cancer with mets, subarachnoid bleed/subdural hematoma, syncope, orthostatic hypotension, adrenal insufficiency, dyslipidemia, hypertension, atrial fibrillation, and degenerative joint disease who presents with several weeks of cough and 1 week of increased weakness and fatigue. He had a fever of 104 on admission. Sepsis 2/2 pneumonia with recent admission to [facility] Pro-Clay mildly elevated Lactate 3.0 on admission, normalized to 1.6 with fluids and treatment as below Several weeks of cough, pulmonary congestion suspicious for atypical pneumonia Received daptomycin/Zosyn on admission to the emergency room. Converted to cefepime/azithromycin on admission MRSA nares ordered, if positive or clinical course worsens initiate vancomycin therapy.IVFM 100 cc/h Tylenol PRN for fever Zofran as needed for nausea Suspected UTI Patient with reports of some urinary urgency, no dysuria and decreased output in the last few days in the setting of poor p.o. intake UA with leukocyte esterase and white blood cells, no overt bacteria, epithelial cells Suspect pulmonary is primary source, although urinary pathogens covered with above Prostate cancer with mets Undergoing active treatment, last chemo in June Follows with Dr. Tobin Bladder scan for urinary output less than 250 per shift, straight cath as needed History of subdural and subarachnoid bleed No antiplatelet or anticoagulation agents per patient's prior follow-up with neurology Clinically stable, no recent bleed History of A. fib Continue metoprolol 12.5 mg p.o. every morning CAD, HLD Metoprolol as above Continue simvastatin 20 mg p.o. every afternoon Adrenal insufficiency Continue hydrocortisone 5 mg a.m., 10 mg every afternoon Received IV hydrocortisone on admission Defer stress dosing at this time Sodium normal, potassium normal, BSG 117 on admission Diet: Heart healthy DVT prophylaxis: For code prophylaxis contraindicated due to intracranial bleed Disposition: Admit to med telemetry. Case management consulted, patient's feels that with his recent levels of strength she is not able to safely care for him at home although she recognizes that his strength in the setting of a illness with sepsis is not reflective of his true baseline. PT/OT. (2) Hypotension: (3) Atrial fibrillation: (4) Pneumonia: (5) Urinary retention: (6) CAD (coronary artery disease): (7) Adrenal insufficiency: (8) Dyslipidemia: (9) Acute dehydration: (10) Prostate cancer metastatic to intrapelvic lymph node: History of Present Illness Chief Complaint: Weakness, cough, fever Primary Care Provider: Jaime Reyna is a 79-year-old male with a past medical history of CAD with PCI, prostate cancer with mets, subarachnoid bleed/subdural hematoma, syncope, orthostatic hypotension, adrenal insufficiency, dyslipidemia, hypertension, atrial fibrillation, and degenerative joint disease who presents with several weeks of cough and 1 week of increased weakness and fatigue. He had a fever of 104 on admission. Patient is seen at the bedside with multiple family members. They report that he was previously at [facility] and was discharged over the weekend. He had difficulty participating in rehab due to weakness. Still he reports that he has been undergoing chemotherapy treatment for prostate cancer with Dr. Tobin with his last treatment in June which she tolerated well. They are unsure how many treatments he has left, they think they have 1 or 2 but are waiting to follow-up with his office. Patient endorses several weeks of nonproductive cough. No attempted treatments. He endorses rash on his left flank for 2 weeks which has crusted over. Denies other cold-like symptoms. He has had diarrhea which is usually loose and sometimes liquid for at least a week. No constipation. No bright red blood per rectum. He has a history of A. fib, no recent chest pain but he has shortness of breath occasionally with his fatigue. He was previously on anticoagulation but this was stopped and he was told he should not be on any anticoagulation including aspirin due to a subdural hematoma and subarachnoid bleed. Medical history: Reviewed in EMR Family history: Reviewed in EMR Surgical history: Reviewed in EMR Allergies: Reviewed in EMR, tamsulosin, no known antibiotic allergies Social: Denies current and former tobacco use, denies alcohol use, denies recreational drug use. Lives at home with his , recently discharged from [facility]. Allergies Allergy/AdvReac Type Severity Reaction Status Date / Time tamsulosin [From Flomax] AdvReac Unknown Verified 09/04/19 22:40 Home Medications Home Medications Medication Instructions Recorded Confirmed Type cyanocobalamin (vitamin B-12) 1,000 mcg PO QAM 04/01/19 09/04/19 History [Vitamin B-12] finasteride 5 mg PO QAM 04/01/19 09/04/19 History gabapentin 300 mg PO HS 04/01/19 09/04/19 History simvastatin 20 mg PO QPM 04/01/19 09/04/19 History bicalutamide 50 mg tablet 50 mg PO BID #60 tab 04/02/19 09/04/19 Rx hydrocortisone 5 mg PO UD 07/20/19 09/04/19 History Robitussin Dm 5 ml PO Q4 PRN 09/04/19 09/04/19 History acetaminophen [Tylenol] 650 mg PO Q4 PRN 09/04/19 09/04/19 History calcium carbonate-vitamin D3 1 tab PO QAM 09/04/19 09/04/19 History [Calcium 600 with Vitamin D3] loratadine-pseudoephedrine 1 tab PO QAM 09/04/19 09/04/19 History [Loratadine-D] metoprolol succinate [Toprol XL] 12.5 mg PO QAM 09/04/19 09/04/19 History midodrine 5 mg PO TID 09/04/19 09/04/19 History nystatin [Nystop] 1 applic TOPICAL BID PRN 09/04/19 09/04/19 History Past Med/Surg History Medical History Benign 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 (Acute) CAD (coronary artery disease) DJD of left shoulder Dyslipidemia History of atrial fibrillation Left knee DJD Nocturia (Acute) Osteoarthritis (Acute) Peripheral neuropathy (Acute) Prostate cancer metastatic to intrapelvic lymph node Prostate nodule (Acute) Suicide attempt (Acute) Urge incontinence of urine (Acute) Urinary frequency (Acute) Urinary retention Urinary urgency (Acute) Surgical History History of herniorrhaphy History of intravascular stent placement History of PTCA History of radiofrequency ablation procedure for cardiac arrhythmia History of total knee arthroplasty Status post total shoulder arthroplasty Status post trigger finger release Family History Other Family history non-contributory Social History Preferred Language: Filipino Communication Ability: Effective Bed And Breakfast Cook Required: No Beliefs That Will Affect Care: None Current Living Situation: Spouse Feels Safe at Home: Yes Smoking Status: Never smoker Hx Alcohol Use: No Hx Substance Use: No Review of Systems Review of Systems: All systems reviewed & are unremarkable except as noted in HPI & below Physical Exam Physical Exam: General: Fatigued, but arouses to verbal stimuli. Alert and oriented. Appears ill but nontoxic. Skin warm, moist HEENT: Atraumatic, normocephalic. Alopecia. Mucous membranes dry. Pulm: His membranes without crackles or rales, diffuse expiratory wheezes appreciated. Symmetrical chest rise, no increased work of breathing. Cardiac: RRR, -mrg. Radial pulses intact and symmetrical. Neck veins flat. Abdominal: Nontender, nondistended, soft. BS present. Results & Data Vital Signs (Past 12 Hours) Vital Signs Temp Pulse Pulse Resp BP Pulse Ox 09/05/19 00:00 96 H 22 87/46 L 91 09/04/19 23:45 94 H 22 80/45 L 94 09/04/19 23:15 100 H 22 77/46 L 97 09/04/19 23:06 102 H 22 75/50 L 09/04/19 23:05 105 H 24 76/45 L 09/04/19 23:00 105 H 25 H 70/52 L 97 09/04/19 22:45 108 H 20 91/53 L 97 09/04/19 22:43 108 H 20 100/56 L 96 09/04/19 22:36 113 H 19 85/57 L 09/04/19 22:35 114 H 19 85/59 L 09/04/19 22:01 113 H 18 94 09/04/19 21:42 39.6 C H 106 H 20 128/63 96 09/04/19 21:41 93 Supervising Physician Co-Signing Physician Notes Patient was seen and examined by me personally. I reviewed the chart, the orders and discussed the case in detail with Dr. Fabricio Rowe MD. I read this H&P and agree with its contents to entirety. Resident Activity Tracking Resident Involvement: Resident Care Provided Care Provided: Adult Hospital Medicine (1) Hypotension Hypotension type: unspecified hypotension type Qualified Code(s): I95.9 - Hypotension, unspecified
--- NOTE | 2019-09-05 02:03 | Emergency Department Note ---
Entered by Gali Trevino acting as a scribe for History of Present Illness General Chief complaint: Diarrhea Stated complaint: WEAKNESS, DIARRHEA, ILLNESS Time Seen by Provider: 09/04/19 21:36 Source: patient and family Mode of arrival: ambulatory Limitations: no limitations History of Present Illness Onset (ago): day(s) 1 Radiation: non-radiation Pain Consistency: + constant Relieved By: + none Exacerbated By: + none Associated symptoms: + cough, + nausea/vomiting (+nausea) and + other (+diarrhea) Treatments prior to arrival: none The patient is a 79 year old male who presents to the Emergency Room with complaints of weakness. He was brought to the ED via EMS and is accompanied by EMS. He is receiving chemotherapy for prostate cancer. He complains of weakness, diarrhea, nausea and a cough. The patient was seen here in the hospital recently after a fall and was transferred to [facility] with a head injury. He was then treated at [facility], but his family states they think he was sent home from [facility] too early as his is not able to care for him and he has been laying around the house. Home Medications Home Medications Medication Instructions Recorded Confirmed Type cyanocobalamin (vitamin B-12) 1,000 mcg PO QAM 04/01/19 09/04/19 History [Vitamin B-12] finasteride 5 mg PO QAM 04/01/19 09/04/19 History gabapentin 300 mg PO HS 04/01/19 09/04/19 History simvastatin 20 mg PO QPM 04/01/19 09/04/19 History bicalutamide 50 mg tablet 50 mg PO BID #60 tab 04/02/19 09/04/19 Rx hydrocortisone 5 mg PO UD 07/20/19 09/04/19 History Robitussin Dm 5 ml PO Q4 PRN 09/04/19 09/04/19 History acetaminophen [Tylenol] 650 mg PO Q4 PRN 09/04/19 09/04/19 History calcium carbonate-vitamin D3 1 tab PO QAM 09/04/19 09/04/19 History [Calcium 600 with Vitamin D3] loratadine-pseudoephedrine 1 tab PO QAM 09/04/19 09/04/19 History [Loratadine-D] metoprolol succinate [Toprol XL] 12.5 mg PO QAM 09/04/19 09/04/19 History midodrine 5 mg PO TID 09/04/19 09/04/19 History nystatin [Nystop] 1 applic TOPICAL BID PRN 09/04/19 09/04/19 History Allergies Allergy/AdvReac Type Severity Reaction Status Date / Time tamsulosin [From Flomax] AdvReac Unknown Verified 09/04/19 22:40 Past Med/Surg History Medical History Benign 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 (Acute) CAD (coronary artery disease) DJD of left shoulder Dyslipidemia History of atrial fibrillation Left knee DJD Nocturia (Acute) Osteoarthritis (Acute) Peripheral neuropathy (Acute) Prostate cancer metastatic to intrapelvic lymph node Prostate nodule (Acute) Suicide attempt (Acute) Urge incontinence of urine (Acute) Urinary frequency (Acute) Urinary retention Urinary urgency (Acute) Surgical History History of herniorrhaphy History of intravascular stent placement History of PTCA History of radiofrequency ablation procedure for cardiac arrhythmia History of total knee arthroplasty Status post total shoulder arthroplasty Status post trigger finger release Family History Other Family history non-contributory Social History Preferred Language: Albanian Communication Ability: Effective 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 and A total of 10 systems reviewed and were otherwise negative Physical Exam Vital Signs Vital Signs - 24 hr 09/04/19 21:41 09/04/19 21:42 09/04/19 22:01 Temperature 39.6 C H Temperature Source Rectal Pulse Rate 106 H Pulse Rate [Right Finger] 113 H Pulse Rate from SpO2 Sensor Respiratory Rate 20 18 Respiratory Effort / Characteristics Non-Labored Spontaneous Blood Pressure 128/63 Blood Pressure Mean 84 Pulse Oximetry 93 96 94 Oxygen Delivery Method Room Air Room Air Room Air Sepsis Recent Fever Within 48 Hours Yes Sepsis New/Unexplained Change in Mental Status No Sepsis Action Taken by Nursing No Action Required 09/04/19 22:35 09/04/19 22:36 09/04/19 22:43 Temperature Temperature Source Pulse Rate 114 H 113 H 108 H Pulse Rate [Right Finger] Pulse Rate from SpO2 Sensor 96 H Respiratory Rate 19 19 20 Respiratory Effort / Characteristics Blood Pressure 85/59 L 85/57 L 100/56 L Blood Pressure Mean 66 62 71 Pulse Oximetry 96 Oxygen Delivery Method Sepsis Recent Fever Within 48 Hours Sepsis New/Unexplained Change in Mental Status Sepsis Action Taken by Nursing 09/04/19 22:45 09/04/19 23:00 09/04/19 23:05 Temperature Temperature Source Pulse Rate 108 H 105 H 105 H Pulse Rate [Right Finger] Pulse Rate from SpO2 Sensor 105 H 105 H Respiratory Rate 20 25 H 24 Respiratory Effort / Characteristics Blood Pressure 91/53 L 70/52 L 76/45 L Blood Pressure Mean 71 62 63 Pulse Oximetry 97 97 Oxygen Delivery Method Sepsis Recent Fever Within 48 Hours Sepsis New/Unexplained Change in Mental Status Sepsis Action Taken by Nursing 09/04/19 23:06 09/04/19 23:15 09/04/19 23:45 Temperature Temperature Source Pulse Rate 102 H 100 H 94 H Pulse Rate [Right Finger] Pulse Rate from SpO2 Sensor 101 H 94 H Respiratory Rate 22 22 22 Respiratory Effort / Characteristics Blood Pressure 75/50 L 77/46 L 80/45 L Blood Pressure Mean 54 56 50 Pulse Oximetry 97 94 Oxygen Delivery Method Sepsis Recent Fever Within 48 Hours Sepsis New/Unexplained Change in Mental Status Sepsis Action Taken by Nursing 09/05/19 00:00 09/05/19 00:15 09/05/19 00:30 Temperature Temperature Source Pulse Rate 96 H 93 H 97 H Pulse Rate [Right Finger] Pulse Rate from SpO2 Sensor 95 H 94 H 98 H Respiratory Rate 22 26 H 26 H Respiratory Effort / Characteristics Blood Pressure 87/46 L 90/54 L 85/47 L Blood Pressure Mean 51 62 52 Pulse Oximetry 91 90 96 Oxygen Delivery Method Sepsis Recent Fever Within 48 Hours Sepsis New/Unexplained Change in Mental Status Sepsis Action Taken by Nursing 09/05/19 00:46 09/05/19 01:00 09/05/19 01:15 Temperature 36.4 C L Temperature Source Oral Pulse Rate 101 H 102 H 104 H Pulse Rate [Right Finger] Pulse Rate from SpO2 Sensor 100 H 101 H 104 H Respiratory Rate 26 H 26 H 25 H Respiratory Effort / Characteristics Blood Pressure 126/57 L 110/56 L 113/64 Blood Pressure Mean 67 87 71 Pulse Oximetry 99 97 97 Oxygen Delivery Method Sepsis Recent Fever Within 48 Hours Sepsis New/Unexplained Change in Mental Status Sepsis Action Taken by Nursing GENERAL: Awake, alert, cachectic-appearing, in no acute distress HENT: Normocephalic, atraumatic. Oropharynx unremarkable. EYES: Normal conjunctiva. Sclera non-icteric. NECK: Supple. No nuchal rigidity. FROM. No JVD. RESPIRATORY: Junky breath sounds. CARDIAC: Regular rate, normal rhythm. Extremities warm and well perfused. Pulses equal. ABDOMEN: Soft, non-distended. No tenderness to palpation. No rebound or guarding. No masses. RECTAL: Deferred. MUSCULOSKELETAL: Chest examination reveals no tenderness. The back is symmetrical on inspection without obvious abnormality. There is no CVA tendern ess to palpation. No joint edema. LOWER EXTREMITIES: Calves are equal size bilaterally and non-tender. No edema. No discoloration. NEURO: Normal sensorium. No sensory or motor deficits noted. SKIN: No rash or jaundice noted. Course Course 214: The patient was evaluated in room B7. A complete history and physical were performed. 2315: I reevaluated the patient. He is resting comfortably. I discussed his results and my recommendation he remain in the hospital for further evaluation and management and he is agreeable with the plan. 2330: I discussed the patients case with Dr. Grove, [facility] Hospitalist. The patient will be further evaluated. Administered Medications Bicalutamide (Casodex) 50 mg PO BID [facility] Stop: 10/05/19 08:59 Last Admin: 09/07/19 08:07 Dose: 50 mg Documented by: [id number] Cosigned by: [id number] Admin: 09/06/19 20:32 Dose: 50 mg Documented by: [id number] Cosigned by: [id number] Admin: 09/06/19 08:07 Dose: 50 mg Documented by: [id number] Cosigned by: [id number] Admin: 09/05/19 21:46 Dose: 50 mg Documented by: [id number] Cosigned by: [id number] Admin: 09/05/19 07:53 Dose: 50 mg Documented by: [id number] Cosigned by: [id number] Cholestyramine Resin (Questran) 4 gm PO BID@1000,2200 [facility] Stop: 10/05/19 09:59 Last Admin: 09/07/19 09:48 Dose: 4 gm Documented by: [id number] Admin: 09/06/19 21:51 Dose: 4 gm Documented by: [id number] Admin: 09/06/19 10:36 Dose: 4 gm Documented by: [id number] Admin: 09/05/19 21:42 Dose: 4 gm Documented by: [id number] Admin: 09/05/19 09:53 Dose: 4 gm Documented by: [id number] C[facility]ocobalamin (Vitamin B-12) [facility] [place]: 10/05/19 08:59 Last Admin: 09/07/19 08:07 Dose: 1,000 mcg Documented by: [id number] Admin: 09/06/19 08:06 Dose: 1,000 mcg Documented by: [id number] Admin: 09/05/19 07:57 Dose: 1,000 mcg Documented by: [id number] [facility]aster[facility] (Proscar) [facility] [place]: 10/05/19 08:59 Last Admin: 09/07/19 08:07 Dose: 5 mg Documented by: [id number] Admin: 09/06/19 08:05 Dose: 5 mg Documented by: [id number] Admin: 09/05/19 07:56 Dose: 5 mg Documented by: [id number] Gabapentin (Neurontin) 300 mg PO HS [facility] Stop: 10/05/19 20:59 Last Admin: 09/06/19 20:30 Dose: 300 mg Documented by: [id number] Admin: 09/05/19 21:46 Dose: 300 mg Documented by: [id number] Hydrocortisone (Cortef) 5 [facility] [place] [place]: 10/05/19 08:59 Last Admin: 09/07/19 08:07 Dose: 5 mg Documented by: [id number] Admin: 09/06/19 08:09 Dose: 5 mg Documented by: [id number] Admin: 09/05/19 07:55 Dose: 5 mg Documented by: [id number] Hydrocortisone (Cortef) 10 mg PO QPM [facility] Stop: 10/05/19 20:59 Last Admin: 09/06/19 20:31 Dose: 10 mg Documented by: [id number] Admin: 09/05/19 21:47 Dose: 10 mg Documented by: [id number] Sodium Chloride (Nss 1000ml) 1,000 mls @ 100 mls/hr IV .Q10H [facility] Stop: 10/05/19 04:04 Last Admin: 09/07/19 16:36 Dose: 100 mls/hr Documented by: [id number] Infusion: 09/07/19 16:36 Dose: 100 mls/hr Documented by: [id number] Admin: 09/07/19 06:48 Dose: 100 mls/hr Documented by: [id number] Infusion: 09/07/19 06:47 Dose: 0 mls/hr Documented by: [id number] Admin: 09/06/19 20:29 Dose: 100 mls/hr Documented by: [id number] Infusion: 09/06/19 20:29 Dose: 100 mls/hr Documented by: [id number] Admin: 09/06/19 10:37 Dose: 100 mls/hr Documented by: [id number] Infusion: 09/06/19 10:37 Dose: 100 mls/hr Documented by: [id number] Admin: 09/06/19 01:25 Dose: 100 mls/hr Documented by: [id number] Infusion: 09/06/19 01:07 Dose: 100 mls/hr Documented by: [id number] Admin: 09/05/19 15:07 Dose: 100 mls/hr Documented by: [id number] Infusion: 09/05/19 14:56 Dose: 100 mls/hr Documented by: [id number] Admin: 09/05/19 04:56 Dose: 100 mls/hr Documented by: [id number] Loratadine/Pseudoephedrine Sulfate (Claritin-D 24 Hour) 1 tab PO QAM [facility] Stop: 10/05/19 08:59 Last Admin: 09/07/19 08:07 Dose: 1 tab Documented by: [id number] Admin: 09/06/19 08:07 Dose: 1 tab Documented by: [id number] Admin: 09/05/19 07:54 Dose: 1 tab Documented by: [id number] Metoprolol Succinate (Toprol Xl) 12.5 mg PO QAM [facility] Stop: 10/05/19 08:59 Last Admin: 09/07/19 08:08 Dose: 12.5 mg Documented by: [id number] Admin: 09/06/19 08:05 Dose: 12.5 mg Documented by: [id number] Admin: 09/05/19 07:57 Dose: 12.5 mg Documented by: [id number] Midodrine (Proamatine) 5 mg PO TID [facility] Stop: 10/05/19 08:59 Last Admin: 09/07/19 14:05 Dose: 5 mg Documented by: [id number] Admin: 09/07/19 08:12 Dose: 5 mg Documented by: [id number] Admin: 09/06/19 20:31 Dose: 5 mg Documented by: [id number] Admin: 09/06/19 13:15 Dose: 5 mg Documented by: [id number] Admin: 09/06/19 08:09 Dose: 5 mg Documented by: [id number] Admin: 09/05/19 21:45 Dose: 5 mg Documented by: [id number] Admin: 09/05/19 14:02 Dose: 5 mg Documented by: [id number] Admin: 09/05/19 07:55 Dose: 5 mg Documented by: [id number] Multivitamins/Minerals (Caltrate Plus) 1 tab PO QAM [facility] Stop: 10/05/19 08:59 Last Admin: 09/07/19 08:08 Dose: 1 tab Documented by: [id number] Admin: 09/06/19 08:05 Dose: 1 tab Documented by: [id number] Admin: 09/05/19 07:52 Dose: 1 tab Documented by: [id number] Mupirocin (Bactroban 2%) 1 appln EXT BID [facility] Stop: 10/09/19 08:59 Last Admin: 09/07/19 08:12 Dose: 1 appln Documented by: [id number] Admin: 09/06/19 20:33 Dose: 1 appln Documented by: [id number] Admin: 09/06/19 08:07 Dose: 1 appln Documented by: [id number] Admin: 09/05/19 21:40 Dose: 1 appln Documented by: [id number] Raspberry (Raspberry) 5 ml PO Q6 [facility] Stop: 09/19/19 05:59 Last Admin: 09/07/19 11:59 Dose: 5 ml Documented by: [id number] Admin: 09/07/19 04:52 Dose: 5 ml Documented by: [id number] Admin: 09/07/19 00:19 Dose: 5 ml Documented by: [id number] Admin: 09/06/19 17:54 Dose: 5 ml Documented by: [id number] Admin: 09/06/19 11:34 Dose: 5 ml Documented by: [id number] Admin: 09/06/19 04:57 Dose: 5 ml Documented by: [id number] Admin: 09/05/19 23:22 Dose: 5 ml Documented by: [id number] Admin: 09/05/19 18:09 Dose: 5 ml Documented by: [id number] Admin: 09/05/19 12:05 Dose: 5 ml Documented by: [id number] Admin: 09/05/19 06:25 Dose: 5 ml Documented by: [id number] Simvastatin (Zocor) 20 mg PO QPM [facility] Stop: 10/05/19 20:59 Last Admin: 09/06/19 20:30 Dose: 20 mg Documented by: [id number] Admin: 09/05/19 21:46 Dose: 20 mg Documented by: [id number] Vancomycin HCl (Vancomycin Hcl) 125 mg PO Q6 [facility]; Protocol Stop: 09/15/19 05:59 Last Admin: 09/07/19 11:59 Dose: 125 mg Documented by: [id number] Admin: 09/07/19 04:52 Dose: 125 mg Documented by: [id number] Admin: 09/07/19 00:20 Dose: 125 mg Documented by: [id number] Admin: 09/06/19 17:54 Dose: 125 mg Documented by: [id number] Admin: 09/06/19 11:34 Dose: 125 mg Documented by: [id number] Admin: 09/06/19 04:55 Dose: 125 mg Documented by: [id number] Admin: 09/05/19 23:22 Dose: 125 mg Documented by: [id number] Admin: 09/05/19 18:09 Dose: 125 mg Documented by: [id number] Admin: 09/05/19 12:05 Dose: 125 mg Documented by: [id number] Admin: 09/05/19 06:26 Dose: 125 mg Documented by: [id number] Discontinued Medications Albuterol (Ventolin 0.083% 2.5mg/3ml) 2.5 mg NEB NOW STA Stop: 09/04/19 21:38 Last Admin: 09/04/19 22:01 Dose: 2.5 mg Documented by: [id number] Hydrocortisone Sodium Succinate (Solu-Cortef) 100 mg IV NOW STA Stop: 09/05/19 00:24 Last Admin: 09/05/19 00:33 Dose: 100 mg Documented by: [id number] Sodium Chloride (Nss 1000ml) 1,000 mls @ 999 mls/hr IV .Q1H1M ONE Stop: 09/04/19 22:37 Last Infusion: 09/04/19 23:49 Dose: 0 mls/hr Documented by: [id number] Admin: 09/04/19 21:57 Dose: 999 mls/hr Documented by: [id number] Acetaminophen (Ofirmev) 1,000 mg in 100 mls @ 400 mls/hr IV NOW STA Stop: 09/04/19 22:02 Last Infusion: 09/04/19 22:40 Dose: 0 mls/hr Documented by: [id number] Admin: 09/04/19 21:57 Dose: 400 mls/hr Documented by: [id number] Sodium Chloride (Nss 1000ml) 1,000 mls @ 999 mls/hr IV .Q1H1M ONE Stop: 09/05/19 00:11 Last Infusion: 09/05/19 00:42 Dose: 0 mls/hr Documented by: [id number] Admin: 09/04/19 23:39 Dose: 999 mls/hr Documented by: [id number] Piperacillin Sod/Tazobactam Sod (Zosyn) 4.5 gm in 120 mls @ 240 mls/hr IV NOW ONE Stop: 09/04/19 23:40 Last Infusion: 09/05/19 00:42 Dose: 0 mls/hr Documented by: [id number] Admin: 09/04/19 23:39 Dose: 240 mls/hr Documented by: [id number] Daptomycin 475 mg/ Syringe 9.5 mls @ 4.75 mls/min IV NOW ONE; Protocol Stop: 09/04/19 23:12 Last Admin: 09/04/19 23:39 Dose: 4.75 mls/min Documented by: [id number] Sodium Chloride (Nss 1000ml) 250 mls @ 999 mls/hr IV .Q16M ONE Stop: 09/04/19 23:26 Last Infusion: 09/05/19 02:36 Dose: 0 mls/hr Documented by: [id number] Admin: 09/04/19 23:39 Dose: 999 mls/hr Documented by: [id number] Azithromycin 500 mg/ Dextrose 255 mls @ 125 mls/hr IV ONE ONE Stop: 09/05/19 06:32 Last Infusion: 09/05/19 07:15 Dose: 0 mls/hr Documented by: [id number] Admin: 09/05/19 05:04 Dose: 125 mls/hr Documented by: [id number] Cefepime HCl 2,000 mg/ Syringe 20 mls @ 5.5 mls/min IV Q12H [facility]; Protocol Stop: 09/12/19 05:59 Last Admin: 09/05/19 05:07 Dose: 5.5 mls/min Documented by: [id number] Midodrine (Proamatine) 5 mg PO ONE STA Stop: 09/05/19 04:06 Last Admin: 09/05/19 05:00 Dose: 5 mg Documented by: [id number] Critical Care Time I have personally spent greater than 30 minutes of critical care time in the direct management of this patient. This includes bedside care, interpretation of diagnostic studies, and testing, discussion with consultants, patient, and family members, and other required patient management activities. This 30 minutes is in excess of all separately billable procedures. Medical Decision Making Differential Diagnosis Differential: Viral, Bacterial, Parasitic, Iatrogenic, C-Diff, Malabsorbtion, Irritable Bowel Disease, IBS, Ischemic Bowel, amongst other pathologies entertained. Medical Records Attestation: I reviewed the patient's medical records. Home Medications Current Medication List: was personally reviewed by me Laboratory Data Attestation: I reviewed the patient's lab results. Result diagrams: 09/07/19 07:25 09/07/19 07:25 Lab Results 09/04/19 09/04/19 09/04/19 Range/Units 21:37 21:45 22:30 WBC 23.07 H (4.8-10.8) K/uL RBC 3.88 L (4.7-6.1) M/uL Hgb 12.4 L (14.0-18.0) g/dL Hct 37.1 L (42-52) % MCV 95.6 (80-100) fL MCH 32.0 (25-34) pg MCHC 33.4 (32-36) g/dL RDW Std Deviation 61.6 H (36.4-46.3) fL RDW Coeff of Emilee 17.7 H (11.5-14.5) % Plt Count 366 (130-400) K/uL MPV 9.7 (7.4-10.4) fL Immature Gran % (Auto) 0.7 % Neut % (Auto) 82.6 % Lymph % (Auto) 8.1 % [place] % (Auto) 8.5 % Eos % (Auto) 0.0 % Baso % (Auto) 0.1 % Immature Gran # (Auto) 0.16 H (0.00-0.02) K/uL Neut # (Auto) 19.05 H (1.4-6.5) K/uL Lymph # (Auto) 1.87 (1.2-3.4) K/uL [place] # (Auto) 1.96 H (0.11-0.59) K/uL Eos # (Auto) 0.01 (0-0.5) K/uL Baso # (Auto) 0.02 (0-0.2) K/uL PT (9.0-12.0) Seconds INR (0.9-1.1) APTT (21.0-31.0) Seconds PTT Ratio Sodium (136-145) mmol/L Potassium (3.5-5.1) mmol/L Chloride (98-107) mmol/L Carbon Dioxide (21-32) mmol/L Anion Gap (3-11) BUN (7-18) mg/dl Creatinine (0.6-1.4) mg/dl Est Cr Clr Drug Dosing ml/min Est GFR ( Amer) Est GFR (Non-Af Amer) BUN/Creatinine Ratio (10-20) Glucose (70-99) mg/dl Lactate (0.4-2.0) mmol/L Calcium (8.5-10.1) mg/dl Magnesium (1.8-2.4) mg/dl Total Bilirubin (0.2-1) mg/dl AST (15-37) U/L ALT (12-78) U/L Alkaline Phosphatase (45-117) U/L Total Creatine Kinase (39-308) U/L CK-MB (CK-2) (0.5-3.6) ng/ml CK/CKMB % Calc Troponin I (0-0.045) ng/ml Total Protein (6.4-8.2) gm/dl Albumin (3.4-5.0) gm/dl Globulin (2.5-4.0) gm/dl Albumin/Globulin Ratio (0.9-2) Procalcitonin (0-0.5) ng/ml Urine Color [place] Urine Appearance Cloudy A (Clear) Urine pH 5.0 (4.5-7.5) Ur Specific [place] 1.026 (1.000-1.030) Urine Protein 2+ H (Negative) Urine Glucose (UA) Negative (Negative) Urine Ketones Trace H (Negative) Urine Blood Negative (Negative) Urine Nitrite Positive A (Negative) Urine Bilirubin 1+ H (Negative) Urine Urobilinogen Negative (Negative) Ur Leukocyte Esterase 1+ H (Negative) Urine WBC (Auto) 1-5 (0-5) /hpf Urine RBC (Auto) 0-4 (0-4) /hpf U Hyaline Cast (Auto) 10-30 H (0-5) /lpf U Epithel Cells (Auto) 20-30 H (0-5) /lpf Urine Bacteria (Auto) Negative (Negative) Granular Casts 5-10 H (0) /lpf Urine Yeast Not Reportable Influenza Type A (PCR) Neg for Influ A (Neg) Influenza Type B (PCR) Neg for Influ B (Neg) 09/04/19 09/04/19 09/04/19 Range/Units 22:30 22:30 22:30 WBC (4.8-10.8) K/uL RBC (4.7-6.1) M/uL Hgb (14.0-18.0) g/dL Hct (42-52) % MCV (80-100) fL MCH (25-34) pg MCHC (32-36) g/dL RDW Std Deviation (36.4-46.3) fL RDW Coeff of Emilee (11.5-14.5) % Plt Count (130-400) K/uL MPV (7.4-10.4) fL Immature Gran % (Auto) % Neut % (Auto) % Lymph % (Auto) % [place] % (Auto) % Eos % (Auto) % Baso % (Auto) % Immature Gran # (Auto) (0.00-0.02) K/uL Neut # (Auto) (1.4-6.5) K/uL Lymph # (Auto) (1.2-3.4) K/uL [place] # (Auto) (0.11-0.59) K/uL Eos # (Auto) (0-0.5) K/uL Baso # (Auto) (0-0.2) K/uL PT 12.3 H (9.0-12.0) Seconds INR 1.2 H (0.9-1.1) APTT 28.1 (21.0-31.0) Seconds PTT Ratio 1.0 Sodium 136 (136-145) mmol/L Potassium 4.2 (3.5-5.1) mmol/L Chloride 101 (98-107) mmol/L Carbon Dioxide 23 (21-32) mmol/L Anion Gap 12.0 H (3-11) BUN 39 H (7-18) mg/dl Creatinine 1.39 (0.6-1.4) mg/dl Est Cr Clr Drug Dosing 47.7 ml/min Est GFR ( Amer) 56.3 Est GFR (Non-Af Amer) 48.5 BUN/Creatinine Ratio 28.2 H (10-20) Glucose 117 H (70-99) mg/dl Lactate (0.4-2.0) mmol/L Calcium 8.9 (8.5-10.1) mg/dl Magnesium 2.2 (1.8-2.4) mg/dl Total Bilirubin 0.9 (0.2-1) mg/dl AST 15 (15-37) U/L ALT 17 (12-78) U/L Alkaline Phosphatase 92 (45-117) U/L Total Creatine Kinase 41 (39-308) U/L CK-MB (CK-2) < 1.0 (0.5-3.6) ng/ml CK/CKMB % Calc TNP Troponin I 0.109 H* (0-0.045) ng/ml Total Protein 6.4 (6.4-8.2) gm/dl Albumin 2.4 L (3.4-5.0) gm/dl Globulin 4.0 (2.5-4.0) gm/dl Albumin/Globulin Ratio 0.6 L (0.9-2) Procalcitonin 0.89 H (0-0.5) ng/ml Urine Color Urine Appearance (Clear) Urine pH (4.5-7.5) Ur Specific [place] (1.000-1.030) Urine Protein (Negative) Urine Glucose (UA) (Negative) Urine Ketones (Negative) Urine Blood (Negative) Urine Nitrite (Negative) Urine Bilirubin (Negative) Urine Urobilinogen (Negative) Ur Leukocyte Esterase (Negative) Urine WBC (Auto) (0-5) /hpf Urine RBC (Auto) (0-4) /hpf U Hyaline Cast (Auto) (0-5) /lpf U Epithel Cells (Auto) (0-5) /lpf Urine Bacteria (Auto) (Negative) Granular Casts (0) /lpf Urine Yeast Influenza Type A (PCR) (Neg) Influenza Type B (PCR) (Neg) 09/04/19 09/05/19 Range/Units 22:37 00:47 WBC (4.8-10.8) K/uL RBC (4.7-6.1) M/uL Hgb (14.0-18.0) g/dL Hct (42-52) % MCV (80-100) fL MCH (25-34) pg MCHC (32-36) g/dL RDW Std Deviation (36.4-46.3) fL RDW Coeff of Emilee (11.5-14.5) % Plt Count (130-400) K/uL MPV (7.4-10.4) fL Immature Gran % (Auto) % Neut % (Auto) % Lymph % (Auto) % [place] % (Auto) % Eos % (Auto) % Baso % (Auto) % Immature Gran # (Auto) (0.00-0.02) K/uL Neut # (Auto) (1.4-6.5) K/uL Lymph # (Auto) (1.2-3.4) K/uL [place] # (Auto) (0.11-0.59) K/uL Eos # (Auto) (0-0.5) K/uL Baso # (Auto) (0-0.2) K/uL PT (9.0-12.0) Seconds INR (0.9-1.1) APTT (21.0-31.0) Seconds PTT Ratio Sodium (136-145) mmol/L Potassium (3.5-5.1) mmol/L Chloride (98-107) mmol/L Carbon Dioxide (21-32) mmol/L Anion Gap (3-11) BUN (7-18) mg/dl Creatinine (0.6-1.4) mg/dl Est Cr Clr Drug Dosing ml/min Est GFR ( Amer) Est GFR (Non-Af Amer) BUN/Creatinine Ratio (10-20) Glucose (70-99) mg/dl Lactate 3.0 H* 1.6 (0.4-2.0) mmol/L Calcium (8.5-10.1) mg/dl Magnesium (1.8-2.4) mg/dl Total Bilirubin (0.2-1) mg/dl AST (15-37) U/L ALT (12-78) U/L Alkaline Phosphatase (45-117) U/L Total Creatine Kinase (39-308) U/L CK-MB (CK-2) (0.5-3.6) ng/ml CK/CKMB % Calc Troponin I (0-0.045) ng/ml Total Protein (6.4-8.2) gm/dl Albumin (3.4-5.0) gm/dl Globulin (2.5-4.0) gm/dl Albumin/Globulin Ratio (0.9-2) Procalcitonin (0-0.5) ng/ml Urine Color Urine Appearance (Clear) Urine pH (4.5-7.5) Ur Specific [place] (1.000-1.030) Urine Protein (Negative) Urine Glucose (UA) (Negative) Urine Ketones (Negative) Urine Blood (Negative) Urine Nitrite (Negative) Urine Bilirubin (Negative) Urine Urobilinogen (Negative) Ur Leukocyte Esterase (Negative) Urine WBC (Auto) (0-5) /hpf Urine RBC (Auto) (0-4) /hpf U Hyaline Cast (Auto) (0-5) /lpf U Epithel Cells (Auto) (0-5) /lpf Urine Bacteria (Auto) (Negative) Granular Casts (0) /lpf Urine Yeast Influenza Type A (PCR) (Neg) Influenza Type B (PCR) (Neg) ECG Data Attestation: I personally reviewed and interpreted this ECG as follows: Indication: + weakness Rate (beats per minute): 117 Rhythm: + sinus tachycardia ECG ST segments: no ST depression and no ST elevation Blood Pressure Blood Pressure Findings: Low blood pressure MDM Narrative This is a 79-year-old male who presents emergency department with a history of p rostate cancer. Upon arrival to the emergency department patient is hypotensive tachycardic and febrile. Based on these findings a sepsis alert was initiated. Patient was given 30 mils per kilogram of fluid. He was started on broad- spectrum antibiotics. It does appear the patient has a urinary tract infection. The patient was found to have an elevation in his lactate as well as his troponin. I did discuss the case with the hospitalist service who did agree to admit the patient. He was also given Solu-Cortef. Impression & Plan Acute hypotension, Acute dehydration, Adrenal insufficiency, Acute UTI Discharge Plan Visit Data *Final* Discharge Date/Time: 09/05/19 02:37 Chief Complaint: Diarrhea Stated Complaint: WEAKNESS, DIARRHEA, ILLNESS ED Provider: Hector Elizabeth Discharge Problem: Acute hypotension, Acute dehydration, Adrenal insufficiency, Acute UTI Patient Disposition: Admitted As Inpatient Discharge Instructions Interventions: ED Discharge Assessment Last Done: 09/05/19 02:37 The scribe's documentation has been prepared under my direction and personally reviewed by me in its entirety. I confirm that the note above accurately reflects all work, treatment, procedures, and medical decision making performed by me.
[2019-09-05] MEDS ORDERED: ONDANSETRON INJ 2 MG/ML 2 ML VIAL IV PRN (04:05)
[2019-09-05] MEDS ORDERED: MIDODRINE HCL 2.5 MG TAB PO STA (04:05)
[2019-09-05] MEDS ORDERED: ACETAMINOPHEN 325 MG TAB PO PRN ×2 (04:05)
[2019-09-05] MEDS ORDERED: GUAIFENESIN/DEXTROM SYRUP 100MG/10MG 5ML UDC PO PRN (04:18)
[2019-09-05] MEDS ORDERED: AZITHROMYCIN 500 MG in DEXTROSE 5% 250 ML IV ONE (04:30)
--- NOTE | 2019-09-05 04:30 | Billing Data ---
Date of Service September 05, 2019 Coding Level of Care Code 02637 Initial Inpt Care Lvl 3
[2019-09-05 04:42] LABS: Cdiff Antigen Positive
[2019-09-05 04:43] LABS: Cdiff Toxin A+B Positive Cdiff Toxin (Negative)
[2019-09-05] MEDS: SODIUM CHLORIDE 0.9% 1000ML 1,000 ML IV SCH ×2 (04:56→15:07)
[2019-09-05] MEDS ORDERED: CEFEPIME 2,000 MG in SYRINGE 7.5 ML IV SCH (06:00)
[2019-09-05] MEDS: RASPBERRY SYRUP 5 ML UDP PO SCH ×4 (06:25→23:22)
[2019-09-05] MEDS: VANCOMYCIN HCL 125 MG/2.5ML SOLN PO SCH ×4 (06:26→23:22)
--- NOTE | 2019-09-05 06:59 | XRay Report ---
XR chest 1V portable CLINICAL HISTORY: 79 years-old Male presenting with SEPSIS. TECHNIQUE: Portable upright AP view of the chest was obtained. COMPARISON: 07/20/2019. FINDINGS: Atherosclerosis of the aortic arch. Cardiac silhouette normal in size. Mildly low lung volumes. Sever al nodules are suspected in the upper lungs, right greater than left. Interstitial prominence. No lar ge effusion or pneumothorax. Degenerative changes of the thoracic spine. Left shoulder arthroplasty. Osteopenia may be present. Upper abdomen normal. IMPRESSION: 1. Nodular opacities in the upper lobes, right greater than left. While this may be artifactual due to overlapping shadows, underlying infiltrate or nodules not excluded. Consider PA and lateral views versus chest CT for better assessment. ACT 112: Negative or not required by law. Electronically signed by: Fabricio Guerrero M.D. 09/05/2019 6:57 AM
[2019-09-05] MEDS: CALCIUM 600MG + VIT D 400 IU TAB PO SCH (07:52)
[2019-09-05] MEDS: BICALUTAMIDE 50 MG TAB PO SCH ×2 (07:53→21:46)
[2019-09-05] MEDS: LORATADINE/PSEUDOEPHEDRINE 1 TABCR PO SCH (07:54)
[2019-09-05] MEDS: HYDROCORTISONE 10 MG TAB PO SCH ×2 (07:55→21:47)
[2019-09-05] MEDS: MIDODRINE HCL 2.5 MG TAB PO SCH ×3 (07:55→21:45)
[2019-09-05] MEDS: FINASTERIDE 5 MG TAB PO SCH (07:56)
[2019-09-05] MEDS: METOPROLOL SUCC 25MG EXT REL TAB PO SCH (07:57)
[2019-09-05] MEDS: CYANOCOBALAMIN 500 MCG TABLET (VITAMIN B-12) PO SCH (07:57)
[2019-09-05] MEDS: CHOLESTYRAMINE LIGHT 4 GM PKT PO SCH ×2 (09:53→21:42)
--- NOTE | 2019-09-05 14:16 | Electrocardiogram Report ---
Test Reason : Blood Pressure : / mmHG Vent. Rate : 117 BPM Atrial Rate : 117 BPM P-R Int : 158 ms QRS Dur : 090 ms QT Int : 316 ms P-R-T Axes : 067 076 065 degrees QTc Int : 440 ms Multifocal atrial tachycardia Abnormal ECG When compared with ECG of 21-JUL-2019 07:53, HR has increased Premature ventricular complexes are no longer Present Nonspecific T wave abnormality now evident in Inferior leads Confirmed by Ronaldo De La Rosa ([id number]) on 09/05/2019 2:16:18 PM Referred By: REFERRED SELF Confirmed By:Ronaldo De La Rosa
--- NOTE | 2019-09-05 14:25 | Electrocardiogram Report ---
Test Reason : Blood Pressure : / mmHG Vent. Rate : 105 BPM Atrial Rate : 105 BPM P-R Int : 174 ms QRS Dur : 088 ms QT Int : 330 ms P-R-T Axes : 055 055 090 degrees QTc Int : 436 ms Sinus tachycardia Otherwise normal ECG When compared with ECG of 04-SEP-2019 21:34, (unconfirmed) No significant change was found Confirmed by Ronaldo De La Rosa ([id number]) on 09/05/2019 2:25:17 PM Referred By: REFERRED SELF Confirmed By:Ronaldo De La Rosa
--- NOTE | 2019-09-05 15:02 | Hospitalist Progress Note ---
Date of Service September 05, 2019 Assessment & Plan (1) Sepsis: Axel is a 79-year-old male with a past medical history of CAD with PCI, prostate cancer with mets, subarachnoid bleed/subdural hematoma, syncope, orthostatic hypotension, adrenal insufficiency, dyslipidemia, hypertension, atrial fibrillation, and degenerative joint disease who presents with several weeks of cough and 1 week of increased weakness and fatigue. He had a fever of 104 on admission. Sepsis: - likely secondary to C. diff colitis in the setting of diarrhea - Pro-Clay 0.89; Lactate 3.0 on admission, normalized to 1.6 with fluids and treatment as below - troponin elevated on admission but normalized; no EKG changes; likely secondary to sepsis - stopped zithromax and cefepime - continued on PO Vancomycin - MRSA nares positive; started on Mupirocin Prostate cancer with mets - Undergoing active treatment, last chemo in June; follows with Dr. Tobin - Bladder scan for urinary output less than 250 per shift, straight cath as needed History of subdural and subarachnoid bleed: - No antiplatelet or anticoagulation agents per patient's prior follow-up with neurology History of A. fib: - Continue metoprolol 12.5 mg p.o. every morning CAD, HLD: - troponin elevated on admission but normalized; no EKG changes; likely secondary to sepsis - Continue simvastatin 20 mg p.o. every afternoon Adrenal insufficiency: Received IV hydrocortisone on admission for stress dose. -Hemodynamically stable Continue home dose hydrocortisone 5 mg a.m., 10 mg every afternoon Sodium normal, potassium normal, BSG 117 on admission Diet: Heart healthy DVT prophylaxis: For code prophylaxis contraindicated due to intracranial bleed Code: DNR/DNI (2) Hypotension: (3) Atrial fibrillation: (4) Pneumonia: (5) Urinary retention: (6) CAD (coronary artery disease): (7) Adrenal insufficiency: (8) Dyslipidemia: (9) Acute dehydration: (10) Prostate cancer metastatic to intrapelvic lymph node: Admission and Anticipated Discharge Date Admission Date: September 05, 2019 Supervising Physician Co-Signing Physician Notes Resident Physician Supervision Note: I independently interviewed and examined the patient and verified the evans history and physical, reviewed labs and image studies, discussed the case with the resident Dr. Kumar and agree with the findings and care plan. Subjective Patient has had about 20 loose bowel movements overnight, and continues to have abdominal discomfort sensation of fullness. Review of Systems Review of Systems: All systems reviewed & are unremarkable except as noted in Subjective Physical Exam Constitutional: WD/WN, vitals as above Eyes: PERRL, conjunctivae normal, anicteric sclerae Respiratory: normal respiratory effort, lungs clear to auscultation Cardiovascular: RRR, no murmur, no edema Gastrointestinal (Abdomen): Inspection/Auscultation: abdomen not distended Percussion/Palpation: + abdomen tender and abdomen soft; no guarding, abdomen not rigid and no hepatosplenomegaly Skin: + turgor decreased Psychiatric: Orientation: alert, oriented to person, oriented to time and cooperative; + not oriented to place Lymphatic: no cervical or axillary lymphadenopathy Results & Data ([facility]) Vital Signs (Past 12 Hours) Vital Signs Temp Pulse Pulse Resp BP Pulse Ox 09/05/19 11:22 36.5 C 108 H 18 113/71 97 09/05/19 08:00 103 H 09/05/19 07:46 36.5 C 09/05/19 07:28 37.7 C H 104 H 18 104/64 94 09/05/19 05:51 94 H 09/05/19 05:14 36.7 C 93 H 18 102/64 93 Laboratory Results 09/05/19 09/05/19 09/05/19 Range/Units 08:00 06:55 02:51 WBC (4.8-10.8) K/uL RBC (4.7-6.1) M/uL Hgb (14.0-18.0) g/dL Hct (42-52) % MCV (80-100) fL MCH (25-34) pg MCHC (32-36) g/dL RDW Std Deviation (36.4-46.3) fL RDW Coeff of [place] (11.5-14.5) % Plt Count (130-400) K/uL MPV (7.4-10.4) fL Immature Gran % (Auto) % Neut % (Auto) % Lymph % (Auto) % [place] % (Auto) % Eos % (Auto) % Baso % (Auto) % Immature Gran # (Auto) (0.00-0.02) K/uL Neut # (Auto) (1.4-6.5) K/uL Lymph # (Auto) (1.2-3.4) K/uL [place] # (Auto) (0.11-0.59) K/uL Eos # (Auto) (0-0.5) K/uL Baso # (Auto) (0-0.2) K/uL PT (9.0-12.0) Seconds INR (0.9-1.1) APTT (21.0-31.0) Seconds PTT Ratio Sodium (136-145) mmol/L Potassium (3.5-5.1) mmol/L Chloride (98-107) mmol/L Carbon Dioxide (21-32) mmol/L Anion Gap (3-11) BUN (7-18) mg/dl Creatinine (0.6-1.4) mg/dl Est Cr Clr Drug Dosing ml/min Est GFR ( Amer) Est GFR (Non-Af Amer) BUN/Creatinine Ratio (10-20) Glucose (70-99) mg/dl Lactate (0.4-2.0) mmol/L Calcium (8.5-10.1) mg/dl Magnesium (1.8-2.4) mg/dl Total Bilirubin (0.2-1) mg/dl AST (15-37) U/L ALT (12-78) U/L Alkaline Phosphatase (45-117) U/L Total Creatine Kinase (39-308) U/L CK-MB (CK-2) (0.5-3.6) ng/ml CK/CKMB % Calc Troponin I 0.058 H* (0-0.045) ng/ml Total Protein (6.4-8.2) gm/dl Albumin (3.4-5.0) gm/dl Globulin (2.5-4.0) gm/dl Albumin/Globulin Ratio (0.9-2) Procalcitonin (0-0.5) ng/ml Urine Color Urine Appearance (Clear) Urine pH (4.5-7.5) Ur Specific [place] (1.000-1.030) Urine Protein (Negative) Urine Glucose (UA) (Negative) Urine Ketones (Negative) Urine Blood (Negative) Urine Nitrite (Negative) Urine Bilirubin (Negative) Urine Urobilinogen (Negative) Ur Leukocyte Esterase (Negative) Urine WBC (Auto) (0-5) /hpf Urine RBC (Auto) (0-4) /hpf U Hyaline Cast (Auto) (0-5) /lpf U Epithel Cells (Auto) (0-5) /lpf Urine Bacteria (Auto) (Negative) Granular Casts (0) /lpf Urine Yeast Nasal Screen MRSA (PCR) Positive A (Negative) Stl C. diff Tox B Gene Positive Cdiff Gene H (Neg) Stl C.difficile Tox A&B Positive Cdiff Toxin A* (Negative) Influenza Type A (PCR) (Neg) Influenza Type B (PCR) (Neg) 09/05/19 09/04/19 09/04/19 Range/Units 00:47 22:37 22:30 WBC (4.8-10.8) K/uL RBC (4.7-6.1) M/uL Hgb (14.0-18.0) g/dL Hct (42-52) % MCV (80-100) fL MCH (25-34) pg MCHC (32-36) g/dL RDW Std Deviation (36.4-46.3) fL RDW Coeff of [place] (11.5-14.5) % Plt Count (130-400) K/uL MPV (7.4-10.4) fL Immature Gran % (Auto) % Neut % (Auto) % Lymph % (Auto) % [place] % (Auto) % Eos % (Auto) % Baso % (Auto) % Immature Gran # (Auto) (0.00-0.02) K/uL Neut # (Auto) (1.4-6.5) K/uL Lymph # (Auto) (1.2-3.4) K/uL [place] # (Auto) (0.11-0.59) K/uL Eos # (Auto) (0-0.5) K/uL Baso # (Auto) (0-0.2) K/uL PT (9.0-12.0) Seconds INR (0.9-1.1) APTT (21.0-31.0) Seconds PTT Ratio Sodium (136-145) mmol/L Potassium (3.5-5.1) mmol/L Chloride (98-107) mmol/L Carbon Dioxide (21-32) mmol/L Anion Gap (3-11) BUN (7-18) mg/dl Creatinine (0.6-1.4) mg/dl Est Cr Clr Drug Dosing ml/min Est GFR ( Amer) Est GFR (Non-Af Amer) BUN/Creatinine Ratio (10-20) Glucose (70-99) mg/dl Lactate 1.6 3.0 H* (0.4-2.0) mmol/L Calcium (8.5-10.1) mg/dl Magnesium (1.8-2.4) mg/dl Total Bilirubin (0.2-1) mg/dl AST (15-37) U/L ALT (12-78) U/L Alkaline Phosphatase (45-117) U/L Total Creatine Kinase (39-308) U/L CK-MB (CK-2) (0.5-3.6) ng/ml CK/CKMB % Calc Troponin I (0-0.045) ng/ml Total Protein (6.4-8.2) gm/dl Albumin (3.4-5.0) gm/dl Globulin (2.5-4.0) gm/dl Albumin/Globulin Ratio (0.9-2) Procalcitonin 0.89 H (0-0.5) ng/ml Urine Color Urine Appearance (Clear) Urine pH (4.5-7.5) Ur Specific [place] (1.000-1.030) Urine Protein (Negative) Urine Glucose (UA) (Negative) Urine Ketones (Negative) Urine Blood (Negative) Urine Nitrite (Negative) Urine Bilirubin (Negative) Urine Urobilinogen (Negative) Ur Leukocyte Esterase (Negative) Urine WBC (Auto) (0-5) /hpf Urine RBC (Auto) (0-4) /hpf U Hyaline Cast (Auto) (0-5) /lpf U Epithel Cells (Auto) (0-5) /lpf Urine Bacteria (Auto) (Negative) Granular Casts (0) /lpf Urine Yeast Nasal Screen MRSA (PCR) (Negative) Stl C. diff Tox B Gene (Neg) Stl C.difficile Tox A&B (Negative) Influenza Type A (PCR) (Neg) Influenza Type B (PCR) (Neg) 09/04/19 09/04/19 09/04/19 Range/Units 22:30 22:30 22:30 WBC 23.07 H (4.8-10.8) K/uL RBC 3.88 L (4.7-6.1) M/uL Hgb 12.4 L (14.0-18.0) g/dL Hct 37.1 L (42-52) % MCV 95.6 (80-100) fL MCH 32.0 (25-34) pg MCHC 33.4 (32-36) g/dL RDW Std Deviation 61.6 H (36.4-46.3) fL RDW Coeff of Emilee 17.7 H (11.5-14.5) % Plt Count 366 (130-400) K/uL MPV 9.7 (7.4-10.4) fL Immature Gran % (Auto) 0.7 % Neut % (Auto) 82.6 % Lymph % (Auto) 8.1 % [place] % (Auto) 8.5 % Eos % (Auto) 0.0 % Baso % (Auto) 0.1 % Immature Gran # (Auto) 0.16 H (0.00-0.02) K/uL Neut # (Auto) 19.05 H (1.4-6.5) K/uL Lymph # (Auto) 1.87 (1.2-3.4) K/uL [place] # (Auto) 1.96 H (0.11-0.59) K/uL Eos # (Auto) 0.01 (0-0.5) K/uL Baso # (Auto) 0.02 (0-0.2) K/uL PT 12.3 H (9.0-12.0) Seconds INR 1.2 H (0.9-1.1) APTT 28.1 (21.0-31.0) Seconds PTT Ratio 1.0 Sodium 136 (136-145) mmol/L Potassium 4.2 (3.5-5.1) mmol/L Chloride 101 (98-107) mmol/L Carbon Dioxide 23 (21-32) mmol/L Anion Gap 12.0 H (3-11) BUN 39 H (7-18) mg/dl Creatinine 1.39 (0.6-1.4) mg/dl Est Cr Clr Drug Dosing 47.7 ml/min Est GFR ( Amer) 56.3 Est GFR (Non-Af Amer) 48.5 BUN/Creatinine Ratio 28.2 H (10-20) Glucose 117 H (70-99) mg/dl Lactate (0.4-2.0) mmol/L Calcium 8.9 (8.5-10.1) mg/dl Magnesium 2.2 (1.8-2.4) mg/dl Total Bilirubin 0.9 (0.2-1) mg/dl AST 15 (15-37) U/L ALT 17 (12-78) U/L Alkaline Phosphatase 92 (45-117) U/L Total Creatine Kinase 41 (39-308) U/L CK-MB (CK-2) < 1.0 (0.5-3.6) ng/ml CK/CKMB % Calc TNP Troponin I 0.109 H* (0-0.045) ng/ml Total Protein 6.4 (6.4-8.2) gm/dl Albumin 2.4 L (3.4-5.0) gm/dl Globulin 4.0 (2.5-4.0) gm/dl Albumin/Globulin Ratio 0.6 L (0.9-2) Procalcitonin (0-0.5) ng/ml Urine Color Urine Appearance (Clear) Urine pH (4.5-7.5) Ur Specific [place] (1.000-1.030) Urine Protein (Negative) Urine Glucose (UA) (Negative) Urine Ketones (Negative) Urine Blood (Negative) Urine Nitrite (Negative) Urine Bilirubin (Negative) Urine Urobilinogen (Negative) Ur Leukocyte Esterase (Negative) Urine WBC (Auto) (0-5) /hpf Urine RBC (Auto) (0-4) /hpf U Hyaline Cast (Auto) (0-5) /lpf U Epithel Cells (Auto) (0-5) /lpf Urine Bacteria (Auto) (Negative) Granular Casts (0) /lpf Urine Yeast Nasal Screen MRSA (PCR) (Negative) Stl C. diff Tox B Gene (Neg) Stl C.difficile Tox A&B (Negative) Influenza Type A (PCR) (Neg) Influenza Type B (PCR) (Neg) 09/04/19 09/04/19 Range/Units 21:45 21:37 WBC (4.8-10.8) K/uL RBC (4.7-6.1) M/uL Hgb (14.0-18.0) g/dL Hct (42-52) % MCV (80-100) fL MCH (25-34) pg MCHC (32-36) g/dL RDW Std Deviation (36.4-46.3) fL RDW Coeff of Emilee (11.5-14.5) % Plt Count (130-400) K/uL MPV (7.4-10.4) fL Immature Gran % (Auto) % Neut % (Auto) % Lymph % (Auto) % [place] % (Auto) % Eos % (Auto) % Baso % (Auto) % Immature Gran # (Auto) (0.00-0.02) K/uL Neut # (Auto) (1.4-6.5) K/uL Lymph # (Auto) (1.2-3.4) K/uL [place] # (Auto) (0.11-0.59) K/uL Eos # (Auto) (0-0.5) K/uL Baso # (Auto) (0-0.2) K/uL PT (9.0-12.0) Seconds INR (0.9-1.1) APTT (21.0-31.0) Seconds PTT Ratio Sodium (136-145) mmol/L Potassium (3.5-5.1) mmol/L Chloride (98-107) mmol/L Carbon Dioxide (21-32) mmol/L Anion Gap (3-11) BUN (7-18) mg/dl Creatinine (0.6-1.4) mg/dl Est Cr Clr Drug Dosing ml/min Est GFR ( Amer) Est GFR (Non-Af Amer) BUN/Creatinine Ratio (10-20) Glucose (70-99) mg/dl Lactate (0.4-2.0) mmol/L Calcium (8.5-10.1) mg/dl Magnesium (1.8-2.4) mg/dl Total Bilirubin (0.2-1) mg/dl AST (15-37) U/L ALT (12-78) U/L Alkaline Phosphatase (45-117) U/L Total Creatine Kinase (39-308) U/L CK-MB (CK-2) (0.5-3.6) ng/ml CK/CKMB % Calc Troponin I (0-0.045) ng/ml Total Protein (6.4-8.2) gm/dl Albumin (3.4-5.0) gm/dl Globulin (2.5-4.0) gm/dl Albumin/Globulin Ratio (0.9-2) Procalcitonin (0-0.5) ng/ml Urine Color [place] Urine Appearance Cloudy A (Clear) Urine pH 5.0 (4.5-7.5) Ur Specific [place] 1.026 (1.000-1.030) Urine Protein 2+ H (Negative) Urine Glucose (UA) Negative (Negative) Urine Ketones Trace H (Negative) Urine Blood Negative (Negative) Urine Nitrite Positive A (Negative) Urine Bilirubin 1+ H (Negative) Urine Urobilinogen Negative (Negative) Ur Leukocyte Esterase 1+ H (Negative) Urine WBC (Auto) 1-5 (0-5) /hpf Urine RBC (Auto) 0-4 (0-4) /hpf U Hyaline Cast (Auto) 10-30 H (0-5) /lpf U Epithel Cells (Auto) 20-30 H (0-5) /lpf Urine Bacteria (Auto) Negative (Negative) Granular Casts 5-10 H (0) /lpf Urine Yeast Not Reportable Nasal Screen MRSA (PCR) (Negative) Stl C. diff Tox B Gene (Neg) Stl C.difficile Tox A&B (Negative) Influenza Type A (PCR) Neg for Influ A (Neg) Influenza Type B (PCR) Neg for Influ B (Neg) Medications Administered Current Inpatient Medications Acetaminophen (Tylenol) 650 mg PO Q4H PRN PRN Reason: Pain or Fever Stop: 10/05/19 04:04 Bicalutamide (Casodex) 50 mg PO BID [facility] Stop: 10/05/19 08:59 Last Admin: 09/05/19 07:53 Dose: 50 mg Documented by: Cholestyramine Resin (Questran) 4 gm PO BID@1000,2200 [facility] Stop: 10/05/19 09:59 Last Admin: 09/05/19 09:53 Dose: 4 gm Documented by: Cyanocobalamin (Vitamin B-12) 1,000 mcg PO QAM [facility] Stop: 10/05/19 08:59 Last Admin: 09/05/19 07:57 Dose: 1,000 mcg Documented by: Finasteride (Proscar) 5 mg PO QAM [facility] Stop: 10/05/19 08:59 Last Admin: 09/05/19 07:56 Dose: 5 mg Documented by: Gabapentin (Neurontin) 300 mg PO HS [facility] Stop: 10/05/19 20:59 Guaifenesin/Dextromethorphan (Robitussin Cough-Chest Dm) 5 ml PO Q4 PRN PRN Reason: Cough Stop: 10/05/19 04:17 Hydrocortisone (Cortef) 5 mg PO QAM [facility] Stop: 10/05/19 08:59 Last Admin: 09/05/19 07:55 Dose: 5 mg Documented by: Hydrocortisone (Cortef) 10 mg PO QPM [facility] Stop: 10/05/19 20:59 Sodium Chloride (Nss 1000ml) 1,000 mls @ 100 mls/hr IV .Q10H [facility] Stop: 10/05/19 04:04 Last Admin: 09/05/19 15:07 Dose: 100 mls/hr Documented by: Loratadine/Pseudoephedrine Sulfate (Claritin-D 24 Hour) 1 tab PO QAM [facility] Stop: 10/05/19 08:59 Last Admin: 09/05/19 07:54 Dose: 1 tab Documented by: Metoprolol Succinate (Toprol Xl) 12.5 mg PO QAM [facility] Stop: 10/05/19 08:59 Last Admin: 09/05/19 07:57 Dose: 12.5 mg Documented by: Midodrine (Proamatine) 5 mg PO TID [facility] Stop: 10/05/19 08:59 Last Admin: 09/05/19 14:02 Dose: 5 mg Documented by: Multivitamins/Minerals (Caltrate Plus) 1 tab PO QAM [facility] Stop: 10/05/19 08:59 Last Admin: 09/05/19 07:52 Dose: 1 tab Documented by: Mupirocin (Bactroban 2%) 1 appln EXT BID [facility] Stop: 10/09/19 08:59 Ondansetron HCl (Zofran) 4 mg IV Q6H PRN PRN Reason: Nausea Stop: 10/05/19 04:04 Raspberry (Raspberry) 5 ml PO Q6 [facility] Stop: 09/19/19 05:59 Last Admin: 09/05/19 18:09 Dose: 5 ml Documented by: Simvastatin (Zocor) 20 mg PO QPM [facility] Stop: 10/05/19 20:59 Vancomycin HCl (Vancomycin Hcl) 125 mg PO Q6 [facility]; Protocol Stop: 09/15/19 05:59 Last Admin: 09/05/19 18:09 Dose: 125 mg Documented by: Resident Activity Tracking Resident Involvement: Resident Care Provided Care Provided: Adult Hospital Medicine (1) Hypotension Hypotension type: unspecified hypotension type Qualified Code(s): I95.9 - Hypotension, unspecified
[2019-09-05] MEDS: MUPIROCIN 2% OINT 22 GM TUBE EXT SCH (21:40)
[2019-09-05] MEDS: SIMVASTATIN 20 MG TAB PO SCH (21:46)
[2019-09-05] MEDS: GABAPENTIN 300 MG CAP PO SCH (21:46)
[2019-09-06] MEDS: SODIUM CHLORIDE 0.9% 1000ML 1,000 ML IV SCH ×3 (01:25→20:29)
[2019-09-06] MEDS: VANCOMYCIN HCL 125 MG/2.5ML SOLN PO SCH ×3 (04:55→17:54)
[2019-09-06] MEDS: RASPBERRY SYRUP 5 ML UDP PO SCH ×3 (04:57→17:54)
[2019-09-06 07:49] LABS: Hematocrit (blood only) 38.7 % (42-52); Hemoglobin 12.7 g/dL (14.0-18.0); Mean Corpuscular Hemoglobin 31.3 pg (25-34); Mean Corpuscular Hgb Conc 32.8 g/dL (32-36); Mean Corpuscular Volume 95.3 fL (80-100); Mean Platelet Volume 10.3 fL (7.4-10.4); Platelet Count 273 K/uL (130-400); RDW Coefficient of Variation 17.4 % (11.5-14.5); RDW Standard Deviation 60.5 fL (36.4-46.3); Red Blood Count 4.06 M/uL (4.7-6.1); White Blood Count 24.11 K/uL (4.8-10.8)
[2019-09-06] MEDS: CALCIUM 600MG + VIT D 400 IU TAB PO SCH (08:05)
[2019-09-06] MEDS: FINASTERIDE 5 MG TAB PO SCH (08:05)
[2019-09-06] MEDS: METOPROLOL SUCC 25MG EXT REL TAB PO SCH (08:05)
[2019-09-06] MEDS: CYANOCOBALAMIN 500 MCG TABLET (VITAMIN B-12) PO SCH (08:06)
[2019-09-06] MEDS: LORATADINE/PSEUDOEPHEDRINE 1 TABCR PO SCH (08:07)
[2019-09-06] MEDS: MUPIROCIN 2% OINT 22 GM TUBE EXT SCH ×2 (08:07→20:33)
[2019-09-06] MEDS: BICALUTAMIDE 50 MG TAB PO SCH ×2 (08:07→20:32)
[2019-09-06] MEDS: HYDROCORTISONE 10 MG TAB PO SCH ×2 (08:09→20:31)
[2019-09-06] MEDS: MIDODRINE HCL 2.5 MG TAB PO SCH ×3 (08:09→20:31)
[2019-09-06 08:25] LABS: Albumin Level 1.9 gm/dl (3.4-5.0); BUN Creatinine Ratio 28.4 (10-20); Basophils # (auto) 0.01 K/uL (0-0.2); Calcium 8.8 mg/dl (8.5-10.1); Creatinine Clr Calc Pharmacy 39.7 ml/min; Eosinophils # (auto) 0.01 K/uL (0-0.5); Est GFR (African American) 42.3; Est GFR (Non-African American) 36.5; Immature Granulocytes # (auto) 0.52 K/uL (0.00-0.02); Immature Granulocytes % (auto) 2.2 %; Lymphocytes # (auto) 1.17 K/uL (1.2-3.4); Lymphocytes % (auto) 4.9 %; Monocytes # (auto) 2.38 K/uL (0.11-0.59); Monocytes % (auto) 9.9 %; Neutrophils # (auto) 20.02 K/uL (1.4-6.5); Potassium 4.5 mmol/L (3.5-5.1)
[2019-09-06 08:28] LABS: Albumin Globulin Ratio 0.5 (0.9-2); Bilirubin,Total 0.4 mg/dl (0.2-1); Globulin 3.9 gm/dl (2.5-4.0); Total Protein 5.8 gm/dl (6.4-8.2)
[2019-09-06] MEDS ORDERED: AZITHROMYCIN 250 MG in DEXTROSE 5% 250 ML IV SCH (09:00)
[2019-09-06] MEDS: CHOLESTYRAMINE LIGHT 4 GM PKT PO SCH ×2 (10:36→21:51)
--- NOTE | 2019-09-06 17:46 | Hospitalist Progress Note ---
Date of Service September 06, 2019 Assessment & Plan (1) Sepsis: Axel is a 79-year-old male with a past medical history of CAD with PCI, prostate cancer with mets, subarachnoid bleed/subdural hematoma, syncope, orthostatic hypotension, adrenal insufficiency, dyslipidemia, hypertension, atrial fibrillation, and degenerative joint disease who presents with several weeks of cough and 1 week of increased weakness and fatigue. He had a fever of 104 on admission. Sepsis: - secondary to C. diff colitis in the setting of diarrhea - Pro-Clay 0.89; Lactate 3.0 on admission, normalized to 1.6 with fluids and treatment as below - troponin elevated on admission but normalized; no EKG changes; likely secondary to sepsis - less number of stools. - continued on PO Vancomycin; if patient worsens then consider addition of IV flagyl before progression to Difficin Prostate cancer with mets - Undergoing active treatment, last chemo in June; follows with Dr. Tobin - Bladder scan for urinary output less than 250 per shift, straight cath as nee ded History of subdural and subarachnoid bleed: - No antiplatelet or anticoagulation agents per patient's prior follow-up with neurology History of A. fib: - Continue metoprolol 12.5 mg p.o. every morning CAD, HLD: - troponin elevated on admission but normalized; no EKG changes; likely secondary to sepsis - Continue simvastatin 20 mg p.o. every afternoon Adrenal insufficiency: Continue hydrocortisone 5 mg a.m., 10 mg every afternoon Received IV hydrocortisone on admission Defer further stress dosing at this time Sodium normal, potassium normal, BSG 117 on admission MRSA nares positive - MRSA nares positive; continued on Mupirocin Diet: Heart healthy DVT prophylaxis: For code prophylaxis contraindicated due to intracranial bleed Code: DNR/DNI Admission and Anticipated Discharge Date Admission Date: September 05, 2019 Supervising Physician Co-Signing Physician Notes Resident Physician Supervision Note: I independently interviewed and examined the patient and verified the evans history and physical, reviewed labs and image studies, discussed the case with the resident Dr. Kumar and agree with the findings and care plan. Subjective Patient has had about 10 loose bowel movements overnight; does not have continued abdominal pain. This morning while walking to the bathroom with staff, he started to feel like his legs could not support him and had to be guided to the floor by staff. He did not lose consciousness, feel dizzy, or have changes to his heart rate either before or after. Remembers the entirety of the event and remained alert and oriented to the entire event. Has had improved oral intake but it remains minimal, in the setting of how much continued lost volume he has had with these bowel movement. Review of Systems Review of Systems: All systems reviewed & are unremarkable except as noted in Subjective Physical Exam Constitutional: WD/WN, vitals as above Eyes: PERRL, conjunctivae normal, anicteric sclerae Respiratory: normal respiratory effort, lungs clear to auscultation Cardiovascular: RRR, no murmur, no edema Gastrointestinal (Abdomen): Inspection/Auscultation: abdomen not distended Percussion/Palpation: abdomen soft; abdomen nontender, no guarding, abdomen not rigid and no hepatosplenomegaly Skin: + turgor decreased Psychiatric: Orientation: alert, oriented to person, oriented to place, oriented to time and cooperative Lymphatic: no cervical or axillary lymphadenopathy Results & Data ([facility]) Vital Signs (Past 12 Hours) Vital Signs Temp Pulse Pulse Resp BP BP Pulse Ox 09/06/19 15:38 91 H 09/06/19 15:30 37.0 C 90 22 144/81 H 95 09/06/19 11:33 37.1 C 93 H 18 114/74 97 09/06/19 08:15 101 H 09/06/19 08:14 36.4 C L 105 H 18 166/99 H 95 09/06/19 07:23 36.5 C 100 H 20 117/74 96 Laboratory Results 09/06/19 09/06/19 Range/Units 07:34 07:34 WBC 24.11 H (4.8-10.8) K/uL RBC 4.06 L (4.7-6.1) M/uL Hgb 12.7 L (14.0-18.0) g/dL Hct 38.7 L (42-52) % MCV 95.3 (80-100) fL MCH 31.3 (25-34) pg MCHC 32.8 (32-36) g/dL RDW Std Deviation 60.5 H (36.4-46.3) fL RDW Coeff of Emilee 17.4 H (11.5-14.5) % Plt Count 273 (130-400) K/uL MPV 10.3 (7.4-10.4) fL Immature Gran % (Auto) 2.2 % Neut % (Auto) 83.0 % Lymph % (Auto) 4.9 % Graham % (Auto) 9.9 % Eos % (Auto) 0.0 % Baso % (Auto) 0.0 % Immature Gran # (Auto) 0.52 H (0.00-0.02) K/uL Neut # (Auto) 20.02 H (1.4-6.5) K/uL Lymph # (Auto) 1.17 L (1.2-3.4) K/uL Graham # (Auto) 2.38 H (0.11-0.59) K/uL Eos # (Auto) 0.01 (0-0.5) K/uL Baso # (Auto) 0.01 (0-0.2) K/uL Sodium 133 L (136-145) mmol/L Potassium 4.5 (3.5-5.1) mmol/L Chloride 104 (98-107) mmol/L Carbon Dioxide 19 L (21-32) mmol/L Anion Gap 10.0 (3-11) BUN 50 H (7-18) mg/dl Creatinine 1.76 H D (0.6-1.4) mg/dl Est Cr Clr Drug Dosing 39.7 ml/min Est GFR ( Amer) 42.3 Est GFR (Non-Af Amer) 36.5 BUN/Creatinine Ratio 28.4 H (10-20) Glucose 142 H (70-99) mg/dl Calcium 8.8 (8.5-10.1) mg/dl Total Bilirubin 0.4 D (0.2-1) mg/dl AST 29 (15-37) U/L ALT 27 (12-78) U/L Alkaline Phosphatase 102 (45-117) U/L Total Protein 5.8 L (6.4-8.2) gm/dl Albumin 1.9 L (3.4-5.0) gm/dl Globulin 3.9 (2.5-4.0) gm/dl Albumin/Globulin Ratio 0.5 L (0.9-2) Medications Administered Current Inpatient Medications Acetaminophen (Tylenol) 650 mg PO Q4H PRN PRN Reason: Pain or Fever Stop: 10/05/19 04:04 Bicalutamide (Casodex) 50 mg PO BID MAGGIE Stop: 10/05/19 08:59 Last Admin: 09/06/19 08:07 Dose: 50 mg Documented by: Cholestyramine Resin (Questran) 4 gm PO BID@1000,2200 [facility] Stop: 10/05/19 09:59 Last Admin: 09/06/19 10:36 Dose: 4 gm Documented by: Cyanocobalamin (Vitamin B-12) 1,000 mcg PO QAM [facility] Stop: 10/05/19 08:59 Last Admin: 09/06/19 08:06 Dose: 1,000 mcg Documented by: Finasteride (Proscar) 5 mg PO QAM [facility] Stop: 10/05/19 08:59 Last Admin: 09/06/19 08:05 Dose: 5 mg Documented by: Gabapentin (Neurontin) 300 mg PO HS [facility] Stop: 10/05/19 20:59 Last Admin: 09/05/19 21:46 Dose: 300 mg Documented by: Guaifenesin/Dextromethorphan (Robitussin Cough-Chest Dm) 5 ml PO Q4 PRN PRN Reason: Cough Stop: 10/05/19 04:17 Hydrocortisone (Cortef) 5 mg PO QAM [facility] Stop: 10/05/19 08:59 Last Admin: 09/06/19 08:09 Dose: 5 mg Documented by: Hydrocortisone (Cortef) 10 mg PO QPM [facility] Stop: 10/05/19 20:59 Last Admin: 09/05/19 21:47 Dose: 10 mg Documented by: Sodium Chloride (Nss 1000ml) 1,000 mls @ 100 mls/hr IV .Q10H [facility] Stop: 10/05/19 04:04 Last Admin: 09/06/19 10:37 Dose: 100 mls/hr Documented by: Loratadine/Pseudoephedrine Sulfate (Claritin-D 24 Hour) 1 tab PO QAM [facility] Stop: 10/05/19 08:59 Last Admin: 09/06/19 08:07 Dose: 1 tab Documented by: Metoprolol Succinate (Toprol Xl) 12.5 mg PO QAM [facility] Stop: 10/05/19 08:59 Last Admin: 09/06/19 08:05 Dose: 12.5 mg Documented by: Midodrine (Proamatine) 5 mg PO TID [facility] Stop: 10/05/19 08:59 Last Admin: 02/14/20 13:15 Dose: 5 mg Documented by: Multivitamins/Minerals (Caltrate Plus) 1 tab PO QAM [facility] Stop: 10/05/19 08:59 Last Admin: 09/06/19 08:05 Dose: 1 tab Documented by: Mupirocin (Bactroban 2%) 1 appln EXT BID [facility]GIE Stop: 10/09/19 08:59 Last Admin: 09/06/19 08:07 Dose: 1 appln Documented by: Ondansetron HCl (Zofran) 4 mg IV Q6H PRN PRN Reason: Nausea Stop: 10/05/19 04:04 Raspberry (Raspberry) 5 ml PO Q6 [facility] Stop: 09/19/19 05:59 Last Admin: 09/06/19 11:34 Dose: 5 ml Documented by: Simvastatin (Zocor) 20 mg PO QPM [facility] Stop: 10/05/19 20:59 Last Admin: 09/05/19 21:46 Dose: 20 mg Documented by: Vancomycin HCl (Vancomycin Hcl) 125 mg PO Q6 [facility]; Protocol Stop: 09/15/19 05:59 Last Admin: 09/06/19 11:34 Dose: 125 mg Documented by: Resident Activity Tracking Resident Involvement: Resident Care Provided Care Provided: Adult Hospital Medicine
[2019-09-06] MEDS: SIMVASTATIN 20 MG TAB PO SCH (20:30)
[2019-09-06] MEDS: GABAPENTIN 300 MG CAP PO SCH (20:30)
[2019-09-07] MEDS: RASPBERRY SYRUP 5 ML UDP PO SCH ×5 (00:19→22:45)
[2019-09-07] MEDS: VANCOMYCIN HCL 125 MG/2.5ML SOLN PO SCH ×5 (00:20→22:45)
[2019-09-07] MEDS: SODIUM CHLORIDE 0.9% 1000ML 1,000 ML IV SCH ×2 (06:48→16:36)
[2019-09-07 07:44] LABS: Mean Corpuscular Hgb Conc 32.3 g/dL (32-36); Mean Platelet Volume 10.2 fL (7.4-10.4); Platelet Count 259 K/uL (130-400)
[2019-09-07] MEDS: BICALUTAMIDE 50 MG TAB PO SCH ×2 (08:07→22:41)
[2019-09-07] MEDS: CYANOCOBALAMIN 500 MCG TABLET (VITAMIN B-12) PO SCH (08:07)
[2019-09-07] MEDS: FINASTERIDE 5 MG TAB PO SCH (08:07)
[2019-09-07] MEDS: HYDROCORTISONE 10 MG TAB PO SCH ×2 (08:07→22:42)
[2019-09-07] MEDS: LORATADINE/PSEUDOEPHEDRINE 1 TABCR PO SCH (08:07)
[2019-09-07 08:08] LABS: Basophils # (auto) 0.01 K/uL (0-0.2); Basophils % (auto) 0.1 %; Eosinophils # (auto) 0.05 K/uL (0-0.5); Eosinophils % (auto) 0.3 %; Hematocrit (blood only) 37.5 % (42-52); Hemoglobin 12.1 g/dL (14.0-18.0); Immature Granulocytes # (auto) 0.16 K/uL (0.00-0.02); Lymphocytes # (auto) 0.89 K/uL (1.2-3.4); Lymphocytes % (auto) 5.5 %; Mean Corpuscular Hemoglobin 30.9 pg (25-34); Mean Corpuscular Volume 95.7 fL (80-100); Monocytes # (auto) 1.74 K/uL (0.11-0.59); Monocytes % (auto) 10.8 %; Neutrophils # (auto) 13.21 K/uL (1.4-6.5); Neutrophils % (auto) 82.3 %; RDW Coefficient of Variation 17.4 % (11.5-14.5); RDW Standard Deviation 61.9 fL (36.4-46.3); Red Blood Count 3.92 M/uL (4.7-6.1); Toxic Granulation 1+; Toxic Vacuolation 2+; White Blood Count 16.06 K/uL (4.8-10.8)
[2019-09-07] MEDS: CALCIUM 600MG + VIT D 400 IU TAB PO SCH (08:08)
[2019-09-07] MEDS: METOPROLOL SUCC 25MG EXT REL TAB PO SCH (08:08)
[2019-09-07] MEDS: MIDODRINE HCL 2.5 MG TAB PO SCH ×3 (08:12→22:43)
[2019-09-07] MEDS: MUPIROCIN 2% OINT 22 GM TUBE EXT SCH ×2 (08:12→22:22)
[2019-09-07 08:18] LABS: Albumin Level 1.9 gm/dl (3.4-5.0); BUN Creatinine Ratio 34.3 (10-20); Calcium 8.8 mg/dl (8.5-10.1); Creatinine Clr Calc Pharmacy 43.4 ml/min; Est GFR (African American) 47.1; Est GFR (Non-African American) 40.6; Potassium 4.6 mmol/L (3.5-5.1)
[2019-09-07 08:21] LABS: Albumin Globulin Ratio 0.5 (0.9-2); Bilirubin,Total 0.3 mg/dl (0.2-1); Globulin 3.8 gm/dl (2.5-4.0); Total Protein 5.7 gm/dl (6.4-8.2)
[2019-09-07] MEDS: CHOLESTYRAMINE LIGHT 4 GM PKT PO SCH (09:48)
--- NOTE | 2019-09-07 10:47 | Hospitalist Progress Note ---
Date of Service September 07, 2019 Assessment & Plan (1) Sepsis: Axel is a 79-year-old male admitted on 09/05/19 for severe C. difficle infection; currently improving with oral Vancomycin therapy. Severe C.difficle infection - Gene and toxin + on admission - WBC 16 today, down from 24 on 09/06. - patient reports diarrhea is slowing - currently on Day 3 of vancomycin therapy - on contact precautions - daily CBC - risk factors for exposure include recent hospitalizations and acute rehab stay Sepsis: resolved - patient met SIRS criteria on admission. No longer meeting criteria. - likely secondary to C. diff colitis; vancomycin as above - MRSA nares positive; continued on Mupirocin ointment Elevated Creatinine - Cr 1.61 today, down from 1.76 09/06; 1.39 on admission. - likely pre-renal in origin in the setting of diarrheal volume loss - continue IV hydration - trend daily Prostate cancer with mets - Undergoing active treatment, last chemo in June; follows with Dr. Tobin - Bladder scan for urinary output less than 250 per shift, straight cath as needed History of subdural and subarachnoid bleed: - No antiplatelet or anticoagulation agents per patient's prior follow-up with neurology - patient's disorientation felt to be secondary to delirium rather than recurrent bled History of A. fib: - Continue metoprolol 12.5 mg p.o. every morning CAD, HLD: - troponin elevated on admission but has since trended down; likley secondary to demand ischemia in the setting of sepsis - no EKG changes - Continue simvastatin 20 mg p.o. daily Adrenal insufficiency: Continue hydrocortisone 5 mg a.m., 10 mg every afternoon Defer stress dosing at this time Diet: Heart healthy DVT prophylaxis: For code prophylaxis contraindicated due to intracranial bleed Dispo: PT recommending SNF upon discharge; Case management consulted Code: DNR/DNI Admission and Anticipated Discharge Date Admission Date: September 05, 2019 Supervising Physician Co-Signing Physician Notes Resident Physician Supervision Note: I independently interviewed and examined the patient and verified the evans history and physical, reviewed labs and image studies, discussed the case with the resident Dr. Sampson and agree with the findings and care plan. Subjective No acute events overnight. Has not had diarrhea so far today - most recent episode was last night. Denies abdominal pain. Frustrated with being in hospital Review of Systems Review of Systems: All systems reviewed & are unremarkable except as noted in HPI & below Physical Exam Constitutional: WD/WN, vitals as above + altered mental status (Awake, alert and oriented x 2 (to person and date) ) Eyes: + anicteric sclerae ENMT: external ear and nose normal, oropharynx normal Neck: normal visual inspection and trachea midline Respiratory: normal respiratory effort, lungs clear to auscultation Cardiovascular: RRR, no murmur, no edema Heart Sounds: normal S1 and normal S2 Gastrointestinal (Abdomen): Inspection/Auscultation: + abdomen distended and normal bowel sounds Percussion/Palpation: abdomen soft; abdomen nontender, no guarding and no hepatosplenomegaly Skin: no rashes, warm and dry Results & Data ([facility]) Vital Signs (Past 12 Hours) Vital Signs Temp Pulse Pulse Resp BP BP Pulse Ox 09/07/19 09:00 89 09/07/19 07:56 36.0 C L 84 20 128/74 98 09/07/19 04:34 36.5 C 90 20 129/79 95 09/07/19 00:29 36.5 C 83 18 155/86 H 90 Resident Activity Tracking Resident Involvement: Resident Care Provided Care Provided: Adult Hospital Medicine
[2019-09-07] MEDS: GABAPENTIN 300 MG CAP PO SCH (22:42)
[2019-09-07] MEDS: SIMVASTATIN 20 MG TAB PO SCH (22:43)
[2019-09-08] MEDS: CHOLESTYRAMINE LIGHT 4 GM PKT PO SCH ×3 (00:41→22:47)
[2019-09-08] MEDS: SODIUM CHLORIDE 0.9% 1000ML 1,000 ML IV SCH ×3 (04:43→22:47)
[2019-09-08] MEDS: VANCOMYCIN HCL 125 MG/2.5ML SOLN PO SCH ×3 (06:03→17:14)
[2019-09-08] MEDS: RASPBERRY SYRUP 5 ML UDP PO SCH ×3 (06:04→17:14)
[2019-09-08 06:40] LABS: Hematocrit (blood only) 36.9 % (42-52); Mean Corpuscular Hemoglobin 31.4 pg (25-34); Mean Corpuscular Hgb Conc 32.5 g/dL (32-36); Mean Corpuscular Volume 96.6 fL (80-100); Mean Platelet Volume 10.1 fL (7.4-10.4); Platelet Count 231 K/uL (130-400); RDW Coefficient of Variation 17.5 % (11.5-14.5); RDW Standard Deviation 61.8 fL (36.4-46.3); Red Blood Count 3.82 M/uL (4.7-6.1); White Blood Count 11.29 K/uL (4.8-10.8)
[2019-09-08 07:10] LABS: Dohle Bodies 1+; Eosinophils # (auto) 0.02 K/uL (0-0.5); Eosinophils % (auto) 0.2 %; Immature Granulocytes # (auto) 0.05 K/uL (0.00-0.02); Immature Granulocytes % (auto) 0.4 %; Lymphocytes # (auto) 0.84 K/uL (1.2-3.4); Lymphocytes % (auto) 7.4 %; Monocytes # (auto) 1.56 K/uL (0.11-0.59); Monocytes % (auto) 13.8 %; Neutrophils # (auto) 8.82 K/uL (1.4-6.5); Neutrophils % (auto) 78.2 %; Toxic Vacuolation 1+
[2019-09-08 07:27] LABS: Albumin Level 1.8 gm/dl (3.4-5.0); BUN Creatinine Ratio 40.6 (10-20); Calcium 8.6 mg/dl (8.5-10.1); Creatinine Clr Calc Pharmacy 65.3 ml/min; Est GFR (African American) 77.2; Est GFR (Non-African American) 66.6; Potassium 4.2 mmol/L (3.5-5.1)
[2019-09-08 07:36] LABS: Albumin Globulin Ratio 0.5 (0.9-2); Bilirubin,Total 0.4 mg/dl (0.2-1); Globulin 3.5 gm/dl (2.5-4.0); Total Protein 5.3 gm/dl (6.4-8.2)
[2019-09-08] MEDS: CALCIUM 600MG + VIT D 400 IU TAB PO SCH (08:31)
[2019-09-08] MEDS: LORATADINE/PSEUDOEPHEDRINE 1 TABCR PO SCH (08:31)
[2019-09-08] MEDS: MIDODRINE HCL 2.5 MG TAB PO SCH ×3 (08:31→21:44)
[2019-09-08] MEDS: METOPROLOL SUCC 25MG EXT REL TAB PO SCH (08:31)
[2019-09-08] MEDS: FINASTERIDE 5 MG TAB PO SCH (08:32)
[2019-09-08] MEDS: MUPIROCIN 2% OINT 22 GM TUBE EXT SCH ×2 (08:46→21:40)
[2019-09-08] MEDS: BICALUTAMIDE 50 MG TAB PO SCH ×2 (09:02→21:43)
[2019-09-08] MEDS: HYDROCORTISONE 10 MG TAB PO SCH ×2 (09:02→21:42)
[2019-09-08] MEDS: CYANOCOBALAMIN 500 MCG TABLET (VITAMIN B-12) PO SCH (09:02)
--- NOTE | 2019-09-08 10:34 | Hospitalist Progress Note ---
Date of Service September 08, 2019 Assessment & Plan (1) Sepsis: Axel is a 79-year-old male admitted on 09/05/19 for severe C. difficle infection; with continued clinical improvement on oral vancomycin therapy. Severe C.difficle infection - Gene and toxin + on admission - WBC continues to trend down; at 11 today, down from 24 on 09/06 - patient reports diarrhea is slowing - currently on Day 10/31 of vancomycin therapy - on contact precautions - risk factors for c.diff exposure includes recent hospitalizations and acute rehab stay Sepsis: resolved - patient met SIRS criteria on admission. No longer meeting criteria. - likely secondary to C. diff colitis; vancomycin as above - MRSA nares positive; continued on Mupirocin ointment Elevated Creatinine: resolved - Cr returned to baseline today at 1.07, down from 1.76 on 09/06; - likely pre-renal in origin in the setting of diarrheal volume loss - continue maintenance IV fluids Altered Mental Status: improving - patient nearly oriented x 3 today (able to state year but not month); improved from exam yesterday - likely related to acute delirium in the setting of acute infection and hospitalization (unfamiliar environment) Prostate cancer with mets - Undergoing active treatment, last chemo in June; follows with Dr. Tobin - Bladder scan for urinary output less than 250 per shift, straight cath as needed History of subdural and subarachnoid bleed: - No antiplatelet or anticoagulation agents per patient's prior follow-up with neurology - patient's disorientation felt to be secondary to acute delirium rather than recurrent bled History of A. fib: - Continue metoprolol 12.5 mg p.o. every morning for rate control - EKG from 09/05 showed sinus rhythm CAD, HLD: - troponin elevated on admission but has since trended down; likely secondary to demand ischemia in the setting of sepsis - no EKG changes concerning for ischemia - Continue simvastatin 20 mg p.o. daily Adrenal insufficiency: Continue hydrocortisone 5 mg a.m., 10 mg every afternoon - electrolytes normal: Na at 136 and K at 4.2 today Defer stress dosing at this time Diet: Heart healthy DVT prophylaxis: contraindicated due to recent intracranial bleed; bilateral SCDs Dispo: PT recommending SNF upon discharge; Case management consulted - working to arrange; patient is medically ready for discharge, awaiting SNF placement Code: DNR/DNI Admission and Anticipated Discharge Date Admission Date: September 05, 2019 Supervising Physician Co-Signing Physician Notes Resident Physician Supervision Note: I independently interviewed and examined the patient and verified the evans history and physical, reviewed labs and image studies, discussed the case with the resident Dr. Sampson and agree with the findings and care plan. Subjective No acute events overnight. Denies abdominal pain. Reports no diarrheal episodes so far this morning - last one was afternoon Review of Systems Review of Systems: All systems reviewed & are unremarkable except as noted in HPI & below Physical Exam Constitutional: WD/WN, vitals as above + altered mental status (Awake, alert and oriented x 2 (to person, place and year but not month) ) Eyes: + anicteric sclerae ENMT: external ear and nose normal, oropharynx normal Neck: normal visual inspection and trachea midline Respiratory: normal respiratory effort, lungs clear to auscultation Cardiovascular: RRR, no murmur, no edema Heart Sounds: normal S1 and normal S2 Gastrointestinal (Abdomen): Inspection/Auscultation: + abdomen distended and normal bowel sounds Percussion/Palpation: abdomen soft; abdomen nontender, no guarding and no hepatosplenomegaly Skin: no rashes, warm and dry Results & Data ([facility]) Vital Signs (Past 12 Hours) Vital Signs Temp Pulse Pulse Resp BP BP Pulse Ox 09/08/19 08:51 94 H 09/08/19 07:57 36.3 C L 89 20 133/78 94 09/08/19 04:00 36.9 C 86 20 137/74 94 09/07/19 22:59 37.1 C 95 H 20 133/77 95 Resident Activity Tracking Resident Involvement: Resident Care Provided Care Provided: Adult Hospital Medicine
[2019-09-08] MEDS ORDERED: GUAIFENESIN/DEXTROM SYRUP 100MG/10MG 5ML UDC PO PRN (14:07)
[2019-09-08] MEDS: GABAPENTIN 300 MG CAP PO SCH (21:44)
[2019-09-08] MEDS: SIMVASTATIN 20 MG TAB PO SCH (21:45)
[2019-09-09] MEDS: VANCOMYCIN HCL 125 MG/2.5ML SOLN PO SCH ×4 (00:22→19:11)
[2019-09-09] MEDS: RASPBERRY SYRUP 5 ML UDP PO SCH ×4 (00:23→18:44)
[2019-09-09] MEDS ORDERED: OLANZapine 5 MG TABLET PO ONE (00:38)
[2019-09-09] MEDS: SODIUM CHLORIDE 0.9% 1000ML 1,000 ML IV SCH ×2 (08:32→18:44)
[2019-09-09] MEDS: HYDROCORTISONE 10 MG TAB PO SCH ×2 (08:33→20:31)
[2019-09-09] MEDS: CYANOCOBALAMIN 500 MCG TABLET (VITAMIN B-12) PO SCH (08:33)
[2019-09-09] MEDS: LORATADINE/PSEUDOEPHEDRINE 1 TABCR PO SCH (08:35)
[2019-09-09] MEDS: MIDODRINE HCL 2.5 MG TAB PO SCH ×3 (08:35→19:11)
[2019-09-09] MEDS: FINASTERIDE 5 MG TAB PO SCH (08:36)
[2019-09-09] MEDS: METOPROLOL SUCC 25MG EXT REL TAB PO SCH (08:37)
[2019-09-09] MEDS: CALCIUM 600MG + VIT D 400 IU TAB PO SCH ×2 (08:37→13:21)
[2019-09-09] MEDS: MUPIROCIN 2% OINT 22 GM TUBE EXT SCH ×2 (08:37→20:38)
[2019-09-09] MEDS: BICALUTAMIDE 50 MG TAB PO SCH ×2 (08:39→20:32)
--- NOTE | 2019-09-09 12:38 | Discharge Summary ---
Date of Service September 09, 2019 Admission HPI Per Admitting Provider Axel is a 79-year-old male with a past medical history of CAD with PCI, prostate cancer with mets, subarachnoid bleed/subdural hematoma, syncope, orthostatic hypotension, adrenal insufficiency, dyslipidemia, hypertension, atrial fibrillation, and degenerative joint disease who presents with several weeks of cough and 1 week of increased weakness and fatigue. He had a fever of 104 on admission. Patient is seen at the bedside with multiple family members. They report that he was previously at [facility] and was discharged over the weekend. He had difficulty participating in rehab due to weakness. Still he reports that he has been undergoing chemotherapy treatment for prostate cancer with Dr. Tobin with his last treatment in June which she tolerated well. They are unsure how many treatments he has left, they think they have 1 or 2 but are waiting to follow-up with his office. Patient endorses several weeks of nonproductive cough. No attempted treatments. He endorses rash on his left flank for 2 weeks which has crusted over. Denies other cold-like symptoms. He has had diarrhea which is usually loose and sometimes liquid for at least a week. No constipation. No bright red blood per rectum. He has a history of A. fib, no recent chest pain but he has shortness of breath occasionally with his fatigue. He was previously on anticoagulation but this was stopped and he was told he should not be on any anticoagulation including aspirin due to a subdural hematoma and subarachnoid bleed. Medical history: Reviewed in EMR Family history: Reviewed in EMR Surgical history: Reviewed in EMR Allergies: Reviewed in EMR, tamsulosin, no known antibiotic allergies Social: Denies current and former tobacco use, denies alcohol use, denies recreational drug use. Lives at home with his , recently discharged from [facility]. Principal Diagnosis C. difficile colitis Discharge Exam Constitutional WD/WN, vitals as above Eyes PERRL, conjunctivae normal, anicteric sclerae Respiratory normal respiratory effort, lungs clear to auscultation Cardiovascular RRR, no murmur, no edema Gastrointestinal (Abdomen) Inspection/Auscultation: abdomen not distended Percussion/Palpation: abdomen soft; abdomen nontender, no guarding, abdomen not rigid and no hepatosplenomegaly Psychiatric Orientation: alert, oriented to person, oriented to place, oriented to time and cooperative Lymphatic no cervical or axillary lymphadenopathy Discharge Data Allergies Allergy/AdvReac Type Severity Reaction Status Date / Time tamsulosin [From Flomax] AdvReac Unknown Verified 09/04/19 22:40 Consultations 09/04/19 23:11 ED Decision to Admit Stat 09/05/19 04:05 Consult Case Management - Discharge Planning Routine Hospital Course (1) Sepsis: Axel is a 79-year-old male admitted on 09/05/19 for severe C. difficle infection; with continued clinical improvement on oral vancomycin therapy. Severe C.difficle infection - Gene and toxin + on admission; continued improvement in diarrhea - continue oral vancomycin 125mg Q6h for a total of 10 days (currently 5/10) - MRSA nares positive; continue Mupirocin ointment for a total of 5 days (currently 4/5) Prostate cancer with mets - Undergoing active treatment, last chemo in June; follows with Dr. Tobin History of subdural and subarachnoid bleed: - No antiplatelet or anticoagulation agents per patient's prior follow-up with neurology - patient's disorientation felt to be secondary to acute delirium rather than recurrent bled History of A. fib: - Continue metoprolol 12.5 mg p.o. every morning for rate control - EKG from 09/05 showed sinus rhythm CAD, HLD: - no EKG changes concerning for ischemia - Continue simvastatin 20 mg p.o. daily Adrenal insufficiency: Continue hydrocortisone 5 mg a.m., 10 mg every afternoon Code: DNR/DNI Total Time Total Time Spent Total Time Spent (In Minutes): 30 Discharge Plan Discharge Items Patient Disposition: Transfer [facility] Reason For Visit: FEVER, WEAKNESS Discharge Diagnosis: C. difficile Activity: Per Instructions section Non-emergency contact: Primary Care Provider Call non-emergency contact if: you have any medication questions and your symptoms worsen Follow-up/Referrals: Jaime Parham [Primary Care Provider] - Diet: Heart Healthy Addtl Attending Provider Instructions: You were admitted following continued to have an increase in the amount of loose bowel movements you were having, and with continued weakening in your strength. During this admission, you had a positive test for an infection of your colon; this is called C. difficile colitis. Importantly you responded very well to the oral treatment of this infection, and subsequently as your strength has improved we are discharging you to custodial facility for your continued care. Pending Studies at Discharge: No Stand-Alone Forms: [facility] Skilled Items Patient informed of condition?: Yes DNR: Yes Discharge Level of Care: Skilled Communicable Disease: Yes (C. difficile) Discharge Prognosis: Improving Lines: PICC Urinary Catheter: No Medications and DC Order Prescriptions: New vancomycin 1,000 mg Recon Soln 125 mg PO Q6 6 Days Qty: 1 RF: 0 mupirocin 2 % Ointment 1 applic EXT BID 2 Days Qty: 15 RF: 0 Continued bicalutamide [Casodex] 50 mg tablet 50 mg PO BID Qty: 60 RF: 3 cyanocobalamin (vitamin B-12) [Vitamin B-12] 1,000 mcg Tablet 1,000 mcg PO QAM RF: 0 simvastatin 20 mg tablet 20 mg PO QPM RF: 0 gabapentin 300 mg capsule 300 mg PO HS RF: 0 finasteride 5 mg tablet 5 mg PO QAM RF: 0 hydrocortisone 5 mg tablet 5 mg PO UD RF: 0 acetaminophen [Tylenol] 325 mg Tablet 650 mg PO Q4 PRN (Reason: Pain) RF: 0 midodrine 5 mg tablet 5 mg PO TID RF: 0 Loratadine-D 5-120 mg Tablet Extended Release 12 Hr 1 tab PO QAM RF: 0 metoprolol succinate [Toprol XL] 25 mg tablet extended release 24 hr 12.5 mg PO QAM RF: 0 nystatin [Nystop] 100,000 unit/gram powder 1 applic TOPICAL BID PRN (Reason: ..) RF: 0 Calcium 600 with Vitamin D3 600 mg(1,500mg) -400 unit Tablet,Chewable 1 tab PO QAM RF: 0 Robitussin Dm 5 ml PO Q4 PRN (Reason: Cough) RF: 0 Discharge Orders: Discharge Order (Routine); Ordered 09/09/19 Ordered By: Evan Kumar Admission Data Admit Date/Time: 09/05/19 01:02 Attending Provider: Rafael Knox Admit Provider: Fabricio Rowe Primary Care Provider: Jaime Parham Other Providers: Oleg Grove ; Rosangela Bernardo Resident Activity Tracking Resident Involvement: Resident Care Provided Care Provided: Adult Hospital Medicine
[2019-09-09] MEDS: CHOLESTYRAMINE LIGHT 4 GM PKT PO SCH ×2 (13:20→22:03)
--- NOTE | 2019-09-09 17:16 | Hospitalist Progress Note ---
Date of Service September 09, 2019 Assessment & Plan (1) Sepsis: Axel is a 79-year-old male admitted on 09/05/19 for severe C. difficle infection; with continued clinical improvement on oral vancomycin therapy. Severe C.difficle infection - Gene and toxin + on admission; continued improvement in diarrhea - continue oral vancomycin 125mg Q6h for a total of 10 days (currently 5/10) - MRSA nares positive; continue Mupirocin ointment for a total of 5 days (currently 4/5) Prostate cancer with mets - Undergoing active treatment, last chemo in June; follows with Dr. Tobin History of subdural and subarachnoid bleed: - No antiplatelet or anticoagulation agents per patient's prior follow-up with neurology - patient's disorientation felt to be secondary to acute delirium rather than recurrent bled History of A. fib: - Continue metoprolol 12.5 mg p.o. every morning for rate control - EKG from 09/05 showed sinus rhythm CAD, HLD: - no EKG changes concerning for ischemia - Continue simvastatin 20 mg p.o. daily Adrenal insufficiency: Continue hydrocortisone 5 mg a.m., 10 mg every afternoon Code: DNR/DNI Admission and Anticipated Discharge Date Admission Date: September 05, 2019 Supervising Physician Co-Signing Physician Notes I personally examined the patient and verified all evans points of history and exam, discussed case, and agree with decision making with Dr Kumar. feeling bettter ovreall, does have cough ongoing for weeks. no sob. not worse when lays down, not productive. vitals noted nad lungs cta b/l no r/r/w good effort skin no pallor or icterus Cdiff w sepsis - improved. continue Rx cough - ?PND vs mild aspiration - follow clinically, ongoing speech eval and treat at SNF. trial of flonase. otherwise as above Subjective Has had continued improvement in the amount of loose stools that he is having; has continued to be able to tolerate oral intake and feels like his appetite is improving slowly. Patient was accepted to [facility] but due to transportation issues could not be discharged today. Review of Systems Review of Systems: All systems reviewed & are unremarkable except as noted in Subjective Physical Exam Constitutional: WD/WN, vitals as above Eyes: PERRL, conjunctivae normal, anicteric sclerae Respiratory: normal respiratory effort, lungs clear to auscultation Cardiovascular: RRR, no murmur, no edema Gastrointestinal (Abdomen): Inspection/Auscultation: abdomen not distended Percussion/Palpation: abdomen soft; abdomen nontender, no guarding, abdomen not rigid and no hepatosplenomegaly Psychiatric: Orientation: alert, oriented to person, oriented to place, oriented to time and cooperative Lymphatic: no cervical or axillary lymphadenopathy Results & Data ([facility]) Vital Signs (Past 12 Hours) Vital Signs Temp Pulse Pulse Resp BP Pulse Ox 09/09/19 13:49 36.0 C L 92 H 18 110/59 L 96 09/09/19 08:00 36.0 C L 92 H 18 110/59 L 96 09/09/19 07:29 92 H Medications Administered Current Inpatient Medications Acetaminophen (Tylenol) 650 mg PO Q4H PRN PRN Reason: Pain or Fever Stop: 10/05/19 04:04 Bicalutamide (Casodex) 50 mg PO BID MAGGIE Stop: 10/05/19 08:59 Last Admin: 09/09/19 08:39 Dose: 50 mg Documented by: Cholestyramine Resin (Questran) 4 gm PO BID@1000,2200 MAGGIE Stop: 10/05/19 09:59 Last Admin: 09/09/19 13:20 Dose: Not Given Documented by: Cyanocobalamin (Vitamin B-12) 1,000 mcg PO QAM [facility] Stop: 10/05/19 08:59 Last Admin: 09/09/19 08:33 Dose: 1,000 mcg Documented by: Finasteride (Proscar) 5 mg PO QAM [facility] Stop: 10/05/19 08:59 Last Admin: 09/09/19 08:36 Dose: 5 mg Documented by: Gabapentin (Neurontin) 300 mg PO HS [facility] Stop: 10/05/19 20:59 Last Admin: 09/08/19 21:44 Dose: 300 mg Documented by: Guaifenesin/Dextromethorphan (Robitussin Cough-Chest Dm) 5 ml PO Q4 PRN PRN Reason: Cough Stop: 10/05/19 04:17 Hydrocortisone (Cortef) 5 mg PO QAM [facility] Stop: 10/05/19 08:59 Last Admin: 09/09/19 08:33 Dose: 5 mg Documented by: Hydrocortisone (Cortef) 10 mg PO QPM MAGGIE Stop: 10/05/19 20:59 Last Admin: 09/08/19 21:42 Dose: 10 mg Documented by: Sodium Chloride (Nss 1000ml) 1,000 mls @ 100 mls/hr IV .Q10H [facility] Stop: 10/05/19 04:04 Last Admin: 09/09/19 08:32 Dose: 100 mls/hr Documented by: Loratadine/Pseudoephedrine Sulfate (Claritin-D 24 Hour) 1 tab PO QAM [facility] Stop: 10/05/19 08:59 Last Admin: 09/09/19 08:35 Dose: 1 tab Documented by: Metoprolol Succinate (Toprol Xl) 12.5 mg PO QAM [facility] Stop: 10/05/19 08:59 Last Admin: 09/09/19 08:37 Dose: 12.5 mg Documented by: Midodrine (Proamatine) 5 mg PO TID@0700,1200,1800 [facility] Stop: 10/09/19 11:59 Last Admin: 09/09/19 13:25 Dose: 5 mg Documented by: Multivitamins/Minerals (Caltrate Plus) 1 tab PO QAM [facility] Stop: 10/05/19 08:59 Last Admin: 09/09/19 13:21 Dose: Not Given Documented by: Mupirocin (Bactroban 2%) 1 appln EXT BID [facility] Stop: 10/09/19 08:59 Last Admin: 09/09/19 08:37 Dose: 1 appln Documented by: Ondansetron HCl (Zofran) 4 mg IV Q6H PRN PRN Reason: Nausea Stop: 10/05/19 04:04 Raspberry (Raspberry) 5 ml PO Q6 [facility] Stop: 09/19/19 05:59 Last Admin: 09/09/19 13:24 Dose: 5 ml Documented by: Simvastatin (Zocor) 20 mg PO QPM [facility] Stop: 10/05/19 20:59 Last Admin: 09/08/19 21:45 Dose: 20 mg Documented by: Vancomycin HCl (Vancomycin Hcl) 125 mg PO Q6 [facility]; Protocol Stop: 09/15/19 05:59 Last Admin: 09/09/19 13:24 Dose: 125 mg Documented by: Resident Activity Tracking Resident Involvement: Resident Care Provided Care Provided: Adult [facility] Medicine
--- NOTE | 2019-09-09 17:43 | Billing Data ---
Date of Service September 09, 2019 Coding Level of Care Code 63454 Subseq Hosp Care Lvl 2
[2019-09-09] MEDS ORDERED: NURSING DECISION MEDICATION ONE (20:15)
[2019-09-09] MEDS ORDERED: COUGH DROP (SUGAR FREE) LOZ 24 LOZ/1 BOX BUCCAL PRN (20:21)
[2019-09-09] MEDS: SIMVASTATIN 20 MG TAB PO SCH (20:31)
[2019-09-09] MEDS: GABAPENTIN 300 MG CAP PO SCH (20:32)
[2019-09-10] MEDS: VANCOMYCIN HCL 125 MG/2.5ML SOLN PO SCH ×3 (00:26→12:38)
[2019-09-10] MEDS: RASPBERRY SYRUP 5 ML UDP PO SCH ×3 (00:26→12:37)
[2019-09-10] MEDS: SODIUM CHLORIDE 0.9% 1000ML 1,000 ML IV SCH ×2 (05:32→14:27)
[2019-09-10] MEDS: MIDODRINE HCL 2.5 MG TAB PO SCH ×2 (05:44→12:37)
[2019-09-10] MEDS: HYDROCORTISONE 10 MG TAB PO SCH (08:18)
[2019-09-10] MEDS: CYANOCOBALAMIN 500 MCG TABLET (VITAMIN B-12) PO SCH (08:19)
[2019-09-10] MEDS: CALCIUM 600MG + VIT D 400 IU TAB PO SCH (08:19)
[2019-09-10] MEDS: LORATADINE/PSEUDOEPHEDRINE 1 TABCR PO SCH (08:19)
[2019-09-10] MEDS: MUPIROCIN 2% OINT 22 GM TUBE EXT SCH (08:20)
[2019-09-10] MEDS: METOPROLOL SUCC 25MG EXT REL TAB PO SCH (08:20)
[2019-09-10] MEDS: BICALUTAMIDE 50 MG TAB PO SCH (08:20)
[2019-09-10] MEDS: FINASTERIDE 5 MG TAB PO SCH (08:21)
[2019-09-10] MEDS: CHOLESTYRAMINE LIGHT 4 GM PKT PO SCH (11:25)
--- NOTE | 2019-09-10 11:50 | Discharge Summary ---
Date of Service September 10, 2019 Admission HPI Per Admitting Provider Axel is a 79-year-old male with a past medical history of CAD with PCI, prostate cancer with mets, subarachnoid bleed/subdural hematoma, syncope, orthostatic hypotension, adrenal insufficiency, dyslipidemia, hypertension, atrial fibrillation, and degenerative joint disease who presents with several weeks of cough and 1 week of increased weakness and fatigue. He had a fever of 104 on admission. Patient is seen at the bedside with multiple family members. They report that he was previously at [facility] and was discharged over the weekend. He had difficulty participating in rehab due to weakness. Still he reports that he has been undergoing chemotherapy treatment for prostate cancer with Dr. Tobin with his last treatment in June which she tolerated well. They are unsure how many treatments he has left, they think they have 1 or 2 but are waiting to follow-up with his office. Patient endorses several weeks of nonproductive cough. No attempted treatments. He endorses rash on his left flank for 2 weeks which has crusted over. Denies other cold-like symptoms. He has had diarrhea which is usually loose and sometimes liquid for at least a week. No constipation. No bright red blood per rectum. He has a history of A. fib, no recent chest pain but he has shortness of breath occasionally with his fatigue. He was previously on anticoagulation but this was stopped and he was told he should not be on any anticoagulation including aspirin due to a subdural hematoma and subarachnoid bleed. Medical history: Reviewed in EMR Family history: Reviewed in EMR Surgical history: Reviewed in EMR Allergies: Reviewed in EMR, tamsulosin, no known antibiotic allergies Social: Denies current and former tobacco use, denies alcohol use, denies recreational drug use. Lives at home with his , recently discharged from [facility]. Principal Diagnosis C. difficile colitis Discharge Exam Constitutional WD/WN, vitals as above Eyes PERRL, conjunctivae normal, anicteric sclerae Respiratory normal respiratory effort, lungs clear to auscultation Cardiovascular RRR, no murmur, no edema Gastrointestinal (Abdomen) Inspection/Auscultation: abdomen not distended Percussion/Palpation: abdomen soft; abdomen nontender, no guarding, abdomen not rigid and no hepatosplenomegaly Psychiatric Orientation: alert, oriented to person, oriented to place, oriented to time and cooperative Lymphatic no cervical or axillary lymphadenopathy Discharge Data Allergies Allergy/AdvReac Type Severity Reaction Status Date / Time tamsulosin [From Flomax] AdvReac Unknown Verified 09/04/19 22:40 Consultations 09/04/19 23:11 ED Decision to Admit Stat 09/05/19 04:05 Consult Case Management - Discharge Planning Routine Hospital Course (1) Sepsis: Axel is a 79-year-old male admitted on 09/05/19 for severe C. difficle infection; with continued clinical improvement on oral vancomycin therapy. Severe C.difficle infection - Gene and toxin + on admission; continued improvement in diarrhea - continue oral vancomycin 125mg Q6h for a total of 10 days (currently 12/31) - MRSA nares positive; completed treatment with 5 days of Mupirocin Prostate cancer with mets - Undergoing active treatment, last chemo in June; follows with Dr. Tobin History of subdural and subarachnoid bleed: - No antiplatelet or anticoagulation agents per patient's prior follow-up with neurology - patient's disorientation felt to be secondary to acute delirium rather than recurrent bled History of A. fib: - Continue metoprolol 12.5 mg p.o. every morning for rate control - EKG from 09/05 showed sinus rhythm CAD, HLD: - no EKG changes concerning for ischemia - Continue simvastatin 20 mg p.o. daily Adrenal insufficiency: Continue hydrocortisone 5 mg a.m., 10 mg every afternoon Code: DNR/DNI Total Time Total Time Spent Total Time Spent (In Minutes): <30 Discharge Plan Discharge Items Patient Disposition: Transfer Correction Fac Reason For Visit: FEVER, WEAKNESS Discharge Diagnosis: C. difficile Activity: Per Instructions section Non-emergency contact: Primary Care Provider Call non-emergency contact if: you have any medication questions and your symptoms worsen Follow-up/Referrals: Jaime Parham [Primary Care Provider] - Diet: Heart Healthy Addtl Attending Provider Instructions: You were seen and evaluated following a period of seven days of intense large volume diarrhea that was persistent throughout the day; during this admission, it was discovered that this diarrhea was caused by an infection of your colon, this infection is called C. difficile colitis. After starting you on anti- biotics, you had considerable improvement during the remainder of your hospital stay. As you are still requiring large amounts of assistance in order to move, it was determined that you would benefit from going to a intermediate facility at this time. We are transferring you to their care today. Cdiff colitis - improving. continue vanco as prescribed, follow closely once vanco has been stopped given ~20% recurrence rate with Cdiff concern on aspiration - no overt pneumonia. would exercise basic aspiration precautions (upright during and after meals, no straws) and ask that speech therapy work with patient ongoing. Pending Studies at Discharge: No Stand-Alone Forms: My [facility] Skilled Items Patient informed of condition?: Yes DNR: Yes Discharge Level of Care: Skilled Communicable Disease: Yes (C. difficile) Discharge Prognosis: Improving Lines: PICC Urinary Catheter: No Medications and DC Order Prescriptions: New vancomycin 1,000 mg Recon Soln 125 mg PO Q6 6 Days Qty: 1 RF: 0 Continued bicalutamide [Casodex] 50 mg tablet 50 mg PO BID Qty: 60 RF: 3 cyanocobalamin (vitamin B-12) [Vitamin B-12] 1,000 mcg Tablet 1,000 mcg PO QAM RF: 0 simvastatin 20 mg tablet 20 mg PO QPM RF: 0 gabapentin 300 mg capsule 300 mg PO HS RF: 0 finasteride 5 mg tablet 5 mg PO QAM RF: 0 hydrocortisone 5 mg tablet 5 mg PO UD RF: 0 acetaminophen [Tylenol] 325 mg Tablet 650 mg PO Q4 PRN (Reason: Pain) RF: 0 midodrine 5 mg tablet 5 mg PO TID RF: 0 Loratadine-D 5-120 mg Tablet Extended Release 12 Hr 1 tab PO QAM RF: 0 metoprolol succinate [Toprol XL] 25 mg tablet extended release 24 hr 12.5 mg PO QAM RF: 0 nystatin [Nystop] 100,000 unit/gram powder 1 applic TOPICAL BID PRN (Reason: ..) RF: 0 Calcium 600 with Vitamin D3 600 mg(1,500mg) -400 unit Tablet,Chewable 1 tab PO QAM RF: 0 Robitussin Dm 5 ml PO Q4 PRN (Reason: Cough) RF: 0 Discharge Orders: Discharge Order (Routine); Ordered 09/10/19 Ordered By: Evan Kumar Admission Data Admit Date/Time: 09/05/19 01:02 Attending Provider: Rafael Knox Admit Provider: Fabricio Rowe Primary Care Provider: Jaime Parham Other Providers: Oleg Grove ; Rosangela Bernardo Other Interventions: Discharge Summary Assessment (RN) Last Done: 09/09/19 13:49 DC Date/Time DO NOT enter until pt leaves facility: 09/10/19 15:20 Supervising Physician Co-Signing Physician Notes I personally examined the patient and verified all evans points of history and exam, discussed case, and agree with decision making with Dr Kumar. Feels about the same. Still asks about cough. vitals noted nad breathing unlabored no accessory muscle use good effort skin no pallor or icterus Cdiff w sepsis - improved. continue Rx as outpt. cough - ?PND vs mild aspiration - follow clinically, ongoing speech eval and treat at SNF. trial of flonase. otherwise as above Resident Activity Tracking Resident Involvement: Resident Care Provided Care Provided: Adult Hospital Medicine
--- NOTE | 2019-09-10 16:21 | Billing Data ---
Date of Service September 10, 2019 Coding Level of Care Code D/C Day Management <30 mins
== END 2019-09-10 15:20 | DRG 872 ==
LOC: ED 21:19 → SUATTDRO 09-05 01:02 → 2N 09-05 01:02